=== PATIENT | female | born 1950 | race Caucasian/White ===

== ENCOUNTER 2021-10-26 09:54 | Emergency (ER) | payer MEDICARE ==
[2021-10-26 10:00] VITALS: RESP 18; TEMP 97.9
[2021-10-26] MEDS ORDERED: SODIUM CHLORIDE 0.9% 500 ML 500 ML IV ONE ×2 (10:19→11:37)
[2021-10-26] MEDS ORDERED: HYDROmorphone 0.5 MG/0.5 ML SYRINGE IVP STA ×2 (10:19→11:37)
--- NOTE | 2021-10-26 10:25 | XR ---
EXAMINATION TYPE: XR chest 1V portable DATE OF EXAM: 10/26/2021 COMPARISON: Chest x-ray September 10, 2019 and older studies. Chest CT 2016. HISTORY: Chest pain and shortness of breath TECHNIQUE: Single frontal view of the chest is obtained. FINDINGS: Background chronic emphysematous and pulmonary fibrotic change with right-sided volume loss and upper lung scarring is redemonstrated. There is no suspicious new focal air space opacity, pleur al effusion, or pneumothorax seen. The cardiac silhouette size remains within normal limits. Left sh oulder level shows calcified density probable intra-articular loose body. IMPRESSION: Chronic changes without acute pulmonary process. No significant change from prior studie s.
--- NOTE | 2021-10-26 10:36 | ED ---
General Adult HPI - General Chief complaint: Chest Pain Stated complaint: Chest pain, SOB Time Seen by Provider: 10/26/21 10:03 Source: patient, RN notes reviewed, old records reviewed Mode of arrival: ambulatory Limitations: no limitations - History of Present Illness Initial comments: 71-year-old female presenting for left-sided chest pain and shortness of breath. Pain is sharp in nature, worse with deep inspiration. This is left-sided and posterior chest. No central chest pain. No vomiting. No fever. No cough. No lower extremity pain or swelling. No history of DVT or PE. She has a history of COPD. - Related Data Home Medications Medication Instructions Recorded Confirmed Acetaminophen Tab [Tylenol] 1,000 mg PO Q6H PRN 08/28/16 10/26/21 Omeprazole 20 mg PO DAILY 08/28/16 10/26/21 Albuterol Nebulized [Ventolin 2.5 mg INHALATION RT-QID PRN 10/26/21 10/26/21 Nebulized] Levothyroxine Sodium [Synthroid] 88 mcg PO DAILY 10/26/21 10/26/21 Umeclidinium Brm/Vilanterol Tr 1 puff INHALATION RT-DAILY 10/26/21 10/26/21 [Anoro Ellipta 62.5-25 Mcg INH] guaiFENesin [Mucinex] 600 mg PO DAILY PRN 10/26/21 10/26/21 Allergies Allergy/AdvReac Type Severity Reaction Status Date / Time aspirin Allergy Dyspnea Verified 10/26/21 10:47 Sulfa (Sulfonamide Allergy Dyspnea Verified 10/26/21 10:47 Antibiotics) codeine AdvReac Unknown Verified 10/26/21 10:47 hydrocodone [From Vicodin] AdvReac Nausea & Verified 10/26/21 10:47 Vomiting Review of Systems ROS Statement: Those systems with pertinent positive or pertinent negative responses have been documented in the HPI. ROS Other: All systems not noted in ROS Statement are negative. 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 and was tx with meds for 4 months, fusch's dz"needs corneal transplant", uti's, home 02-2 liters n/c History of Any Multi-Drug Resistant Organisms: None Reported Past Surgical History: Breast Surgery, Section, Cholecystectomy, Orthopedic Surgery Additional Past Surgical History / Comment(s): rt lower lobectomy 2000, marah knee arthroscopies, x2 c-sections, colonoscopy/polypectomy(benign), lt breast bx-neg Past Anesthesia/Blood Transfusion Reactions: No Reported Reaction Past Psychological History: No Psychological Hx Reported Smoking Status: Former smoker Past Alcohol Use History: None Reported Past Drug Use History: None Reported - Past Family History Mother Family Medical History: COPD Father Family Medical History: Diabetes Mellitus, Eye Disorder Additional Family Medical History / Comment(s): glaucoma General Exam Limitations: no limitations General appearance: alert, in no apparent distress Head exam: Present: atraumatic, normocephalic Eye exam: Present: normal appearance, PERRL ENT exam: Present: normal exam Neck exam: Present: normal inspection. Absent: tenderness, meningismus Respiratory exam: Present: wheezes. Absent: respiratory distress Cardiovascular Exam: Present: normal rhythm, tachycardia GI/Abdominal exam: Present: soft. Absent: distended, tenderness, guarding Extremities exam: Present: normal inspection, normal capillary refill. Absent: pedal edema Neurological exam: Present: alert, oriented X3, CN II-XII intact. Absent: motor sensory deficit Psychiatric exam: Present: normal affect, normal mood Skin exam: Present: warm, dry, intact. Absent: cyanosis, diaphoretic Course Vital Signs 10/26/21 10/26/21 10/26/21 09:56 11:34 12:09 Temperature 97.9 F Pulse Rate 123 H 94 86 Respiratory 18 18 Rate Blood Pressure 160/88 142/92 O2 Sat by Pulse 96 99 Oximetry EKG Findings - EKG Comments: EKG Findings:: EKG: Sinus tachycardia, right atrial enlargement, rate of 118 MO interval 156, QRS duration 54, QTC [address] segment elevation. Medical Decision Making - Medical Decision Making 71-year-old female with oxygen dependent COPD and emphysema presenting with left sided chest pain and dyspnea. She was tachycardic, there was concern for pulmonary embolism as well as pneumothorax. Initial chest x-rays negative for pneumothorax. CT is performed which shows no acute process, no central pulmonary embolism. She has a normal CBC, normal CMP, negative troponin. I did offer admission for continued evaluation treatment of her emphysema. Patient declines she states she has an appointment with her rn night tomorrow and would prefer discharged home. She is given strict return parameters. - Lab Data Result diagrams: 10/26/21 10:19 10/26/21 10:19 Lab Results 10/26/21 10/26/21 10/26/21 Range/Units 10:19 10:19 10:19 WBC 12.2 H (3.8-10.6) k/uL RBC 4.94 (3.80-5.40) m/uL Hgb 14.4 (11.4-16.0) gm/dL Hct 44.8 (34.0-46.0) % MCV 90.7 (80.0-100.0) fL MCH 29.2 (25.0-35.0) pg MCHC 32.2 (31.0-37.0) g/dL RDW 13.7 (11.5-15.5) % Plt Count 277 (150-450) k/uL MPV 8.0 Neutrophils % 78 % Lymphocytes % 13 % Monocytes % 7 % Eosinophils % 0 % Basophils % 1 % Neutrophils # 9.5 H (1.3-7.7) k/uL Lymphocytes # 1.6 (1.0-4.8) k/uL Monocytes # 0.9 (0-1.0) k/uL Eosinophils # 0.0 (0-0.7) k/uL Basophils # 0.1 (0-0.2) k/uL PT 10.3 (9.0-12.0) sec INR 1.0 (<1.2) APTT 25.7 (22.0-30.0) sec Sodium 137 (137-145) mmol/L Potassium 4.5 (3.5-5.1) mmol/L Chloride 101 (98-107) mmol/L Carbon Dioxide 26 (22-30) mmol/L Anion Gap 10 mmol/L BUN 14 (7-17) mg/dL Creatinine 0.87 (0.52-1.04) mg/dL Est GFR (CKD-EPI)AfAm 79 (>60 ml/min/1.73 sqM) Est GFR (CKD-EPI)NonAf 68 (>60 ml/min/1.73 sqM) Glucose 107 H (74-99) mg/dL Calcium 9.9 (8.4-10.2) mg/dL Magnesium 2.1 (1.6-2.3) mg/dL Total Bilirubin 1.1 (0.2-1.3) mg/dL AST 21 (14-36) U/L ALT 19 (4-34) U/L Alkaline Phosphatase 91 (38-126) U/L Troponin I (0.000-0.034) ng/mL Total Protein 8.2 (6.3-8.2) g/dL Albumin 4.5 (3.5-5.0) g/dL 10/26/21 Range/Units 10:19 WBC (3.8-10.6) k/uL RBC (3.80-5.40) m/uL Hgb (11.4-16.0) gm/dL Hct (34.0-46.0) % MCV (80.0-100.0) fL MCH (25.0-35.0) pg MCHC (31.0-37.0) g/dL RDW (11.5-15.5) % Plt Count (150-450) k/uL MPV Neutrophils % % Lymphocytes % % Monocytes % % Eosinophils % % Basophils % % Neutrophils # (1.3-7.7) k/uL Lymphocytes # (1.0-4.8) k/uL Monocytes # (0-1.0) k/uL Eosinophils # (0-0.7) k/uL Basophils # (0-0.2) k/uL PT (9.0-12.0) sec INR (<1.2) APTT (22.0-30.0) sec Sodium (137-145) mmol/L Potassium (3.5-5.1) mmol/L Chloride (98-107) mmol/L Carbon Dioxide (22-30) mmol/L Anion Gap mmol/L BUN (7-17) mg/dL Creatinine (0.52-1.04) mg/dL Est GFR (CKD-EPI)AfAm (>60 ml/min/1.73 sqM) Est GFR (CKD-EPI)NonAf (>60 ml/min/1.73 sqM) Glucose (74-99) mg/dL Calcium (8.4-10.2) mg/dL Magnesium (1.6-2.3) mg/dL Total Bilirubin (0.2-1.3) mg/dL AST (14-36) U/L ALT (4-34) U/L Alkaline Phosphatase (38-126) U/L Troponin I <0.012 (0.000-0.034) ng/mL Total Protein (6.3-8.2) g/dL Albumin (3.5-5.0) g/dL Disposition Clinical Impression: Atypical chest pain Disposition: HOME SELF-CARE Condition: Fair Instructions (If sedation given, give patient instructions): Chest Pain (ED) Is patient prescribed a controlled substance at d/c from ED?: No Referrals: Alexandra Krishnan DO [Primary Care Provider] - 1-2 days James Garcia DO [Doctor of Osteopathic Medicine] - 1-2 days Time of Disposition: 12:25
[2021-10-26 10:37] LABS: Basophils # (A) 0.1 k/uL (0-0.2); Basophils % (A) 1 %; Eosinophils % (A) 0 %; HCT 44.8 % (34.0-46.0); HGB 14.4 gm/dL (11.4-16.0); Lymphocytes # (A) 1.6 k/uL (1.0-4.8); Lymphocytes % (A) 13 %; MCH 29.2 pg (25.0-35.0); MCHC 32.2 g/dL (31.0-37.0); MCV 90.7 fL (80.0-100.0); Monocytes # (A) 0.9 k/uL (0-1.0); Monocytes % (A) 7 %; Neutrophils # (A) 9.5 k/uL (1.3-7.7); Neutrophils % (A) 78 %; Platelet Count 277 k/uL (150-450); RBC 4.94 m/uL (3.80-5.40); RDW 13.7 % (11.5-15.5); WBC 12.2 k/uL (3.8-10.6)
[2021-10-26 10:50] LABS: Albumin 4.5 g/dL (3.5-5.0); Calcium 9.9 mg/dL (8.4-10.2); Magnesium 2.1 mg/dL (1.6-2.3); Potassium 4.5 mmol/L (3.5-5.1); Total Bilirubin 1.1 mg/dL (0.2-1.3); Total Protein 8.2 g/dL (6.3-8.2)
[2021-10-26 11:01] LABS: Partial Thromboplastin Time 25.7 sec (22.0-30.0); Prothrombin Time 10.3 sec (9.0-12.0)
--- NOTE | 2021-10-26 11:26 | CT ---
EXAMINATION TYPE: CT angio chest DATE OF EXAM: 10/26/2021 COMPARISON: Prior chest CT August 31, 2016. HISTORY: Chest pain and difficulty breathing. History of right lobectomy. CT DLP: 391.8 mGycm. Automated Exposure Control for Dose Reduction was Utilized. CONTRAST: CTA scan of the thorax is performed with IV Contrast, patient injected with 57ml mL of Isovue 370, pu lmonary embolism protocol. MIP Images are created on CT scanner and reviewed. FINDINGS: LUNGS: Moderate to advanced underlying emphysematous change with moderate scattered parenchymal fibro sis greatest in the right upper lobe where there is focal scarring and volume loss along with areas o f chronic bronchiectasis and surgical change along with bulla and bleb formation. No suspicious new f ocal consolidation. No pleural effusion or pneumothorax seen bilaterally. MEDIASTINUM: There is suboptimal study with apical contrast in the aorta and pulmonary arteries. No t horacic aortic aneurysm or dissection is seen. There is a 4 vessel origin from the aortic arch which is normal variant. Some prominent but partially calcified left hilar and subcarinal lymph nodes are r edemonstrated. Prominent right hilar lymph node seen better on current study. No cardiomegaly or pe ricardial effusion is seen. OTHER: Cholecystectomy clips are present. Underlying scoliotic curvature is seen. IMPRESSION: Suboptimal study without acute pulmonary embolism. Moderate to advanced underlying emphys ematous change along with moderate scarring greatest in the right upper lung where there is prior edison gical change and volume loss redemonstrated. No acute pulmonary process is noted.
[2021-10-26 11:36] VITALS: BP 142/92
[2021-10-26] MEDS ORDERED: KETOROLAC 15 MG/ML 1 ML VIAL IVP STA (11:37)
[2021-10-26] MEDS ORDERED: ALBUTEROL NEBULIZED 2.5 MG/3 ML INHALATION STA (11:39)
[2021-10-26] MEDS ORDERED: methylPREDNISolone SOD SUCCI 125 MG/2 ML VIAL IV STA (11:39)
[2021-10-26] MEDS ORDERED: IPRATROPIUM-ALBUTEROL 3 ML NEB INHALATION STA (11:39)
[2021-10-26 12:29] VITALS: PULSE 89
== END 2021-10-26 13:36 | disposition home or self-care (01) ==
LOC: EC 09:54
DX: R07.89 Other chest pain (principal); J44.9 Chronic obstructive pulmonary disease, unspecified; K21.9 Gastro-esophageal reflux disease without esophagitis; E07.9 Disorder of thyroid, unspecified; Z88.2 Allergy status to sulfonamides; Z88.5 Allergy status to narcotic agent; Z87.440 Personal history of urinary (tract) infections; Z90.49 Acquired absence of other specified parts of digestive tract; Z87.891 Personal history of nicotine dependence
CPT/HCPCS: 99284; 96374; 96375; 96376; 36415; 94640; 93005; 80053; 83735; 84484; 85025; 85610; 85730; 71045; 71275; J2930; J1170; Q9967

== ENCOUNTER 2021-12-25 23:55 | Inpatient (IN) | payer MEDICARE ==
[2021-12-26] MEDS ORDERED: MORPHINE SULFATE 4 MG/ML SYRINGE IV STA (05:21)
--- NOTE | 2021-12-26 05:25 | ED ---
Fever HPI - General Chief Complaint: Fever Stated Complaint: Back Pain, Chills, Fever Time Seen by Provider: 12/26/21 05:21 Source: patient Mode of arrival: ambulatory Limitations: no limitations - History of Present Illness Initial Comments: Patient is 71-year-old woman with history of underlying COPD. She presents because she is concerned she is developing pneumonia. The patient states she started having chills and fever yesterday. She states she does have a cough but she has some underlying COPD and usually does cough. No sputum production. She has some left thoracic back pain. She states she has had the symptoms previously with pneumonia. MD Complaint: fever, other Onset/Timin -: days(s) Associated Symptoms: chills, cough, other Treatments Prior to Arrival: Acetaminophen - Related Data Home Medications Medication Instructions Recorded Confirmed Omeprazole 20 mg PO DAILY 08/28/16 12/26/21 Levothyroxine Sodium [Synthroid] 88 mcg PO DAILY 10/26/21 12/26/21 Umeclidinium Brm/Vilanterol Tr 1 puff INHALATION RT-DAILY 10/26/21 12/26/21 [Anoro Ellipta 62.5-25 Mcg INH] diphenhydrAMINE HCL [Benadryl] 25 mg PO HS 12/26/21 12/26/21 guaiFENesin [Mucinex] 1,200 mg PO DAILY 12/26/21 12/26/21 Previous Rx's Medication Instructions Recorded Azithromycin [Zithromax] 500 mg PO DAILY #4 tab 12/29/21 Cefdinir [Omnicef] 300 mg PO BID #8 cap 12/29/21 predniSONE [Deltasone] 40 mg PO DAILY 2 Days #4 tab 12/29/21 Allergies Allergy/AdvReac Type Severity Reaction Status Date / Time aspirin Allergy Dyspnea Verified 12/26/21 08:06 ibuprofen [From Motrin] Allergy Dyspnea Verified 12/26/21 08:05 Sulfa (Sulfonamide Allergy Dyspnea Verified 12/26/21 08:06 Antibiotics) codeine AdvReac Confusion Verified 12/26/21 08:05 hydrocodone [From Vicodin] AdvReac Confusion Verified 12/26/21 08:06 Review of Systems ROS Statement: Those systems with pertinent positive or pertinent negative responses have been documented in the HPI. ROS Other: All systems not noted in ROS Statement are negative. Constitutional: Reports: fever, chills Respiratory: Reports: as per HPI, cough, dyspnea, wheezes. Denies: hemoptysis Cardiovascular: Reports: as per HPI, chest pain ((Back). 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 and was tx with meds for 4 months, fusch's dz"needs corneal transplant", uti's, home 02-2 liters n/c History of Any Multi-Drug Resistant Organisms: None Reported Past Surgical History: Breast Surgery, Section, Cholecystectomy, Orthopedic Surgery Additional Past Surgical History / Comment(s): rt lower lobectomy 2000, marah knee arthroscopies, x2 c-sections, colonoscopy/polypectomy(benign), lt breast bx-neg Past Anesthesia/Blood Transfusion Reactions: No Reported Reaction Past Psychological History: No Psychological Hx Reported Smoking Status: Former smoker Past Alcohol Use History: None Reported Past Drug Use History: None Reported - Past Family History Mother Family Medical History: COPD Father Family Medical History: Diabetes Mellitus, Eye Disorder Additional Family Medical History / Comment(s): glaucoma General Exam Limitations: no limitations General appearance: alert, in no apparent distress Head exam: Present: atraumatic, normocephalic Eye exam: Present: normal appearance Respiratory exam: Present: wheezes, chest wall tenderness, decreased breath sounds. Absent: rales, rhonchi, stridor, accessory muscle use Cardiovascular Exam: Present: tachycardia, normal heart sounds. Absent: systolic murmur, diastolic murmur, rubs, gallop GI/Abdominal exam: Present: soft. Absent: distended, tenderness, guarding, rebound, rigid, mass Extremities exam: Present: normal inspection, normal capillary refill. Absent: pedal edema, calf tenderness Back exam: Present: normal inspection. Absent: CVA tenderness (R), CVA tenderness (L) Neurological exam: Present: alert Skin exam: Present: warm, dry, intact, normal color. Absent: rash Course Vital Signs 12/25/21 12/26/21 12/26/21 23:57 05:30 05:43 Temperature 97.8 F 100.6 F H Pulse Rate 131 H 124 H Pulse Rate [ Pulse Oximetery ] Respiratory 20 24 24 Rate Blood Pressure 127/78 128/76 Blood Pressure [Left Arm] O2 Sat by Pulse 94 L 95 Oximetry 12/26/21 12/26/21 12/26/21 07:55 10:30 11:56 Temperature 100.1 F H 98.6 F Pulse Rate 121 H 96 103 H Pulse Rate [ Pulse Oximetery ] Respiratory 18 18 18 Rate Blood Pressure 121/70 109/65 Blood Pressure [Left Arm] O2 Sat by Pulse 98 96 Oximetry 12/26/21 12/26/21 12/26/21 12:05 14:19 17:17 Temperature 98.8 F Pulse Rate 101 H 96 94 Pulse Rate [ Pulse Oximetery ] Respiratory 18 16 18 Rate Blood Pressure 125/74 Blood Pressure [Left Arm] O2 Sat by Pulse 98 Oximetry 12/26/21 12/26/21 12/26/21 17:24 18:43 19:29 Temperature Pulse Rate 93 115 H 106 H Pulse Rate [ Pulse Oximetery ] Respiratory 18 20 18 Rate Blood Pressure 127/70 131/79 Blood Pressure [Left Arm] O2 Sat by Pulse 97 96 Oximetry 12/26/21 12/26/21 12/26/21 20:00 20:10 20:18 Temperature 98.4 F Pulse Rate 98 109 H Pulse Rate [ 112 H Pulse Oximetery ] Respiratory 20 Rate Blood Pressure Blood Pressure 129/74 [Left Arm] O2 Sat by Pulse 95 Oximetry 12/26/21 12/26/21 20:19 20:25 Temperature Pulse Rate 109 H 112 H Pulse Rate [ Pulse Oximetery ] Respiratory Rate Blood Pressure Blood Pressure [Left Arm] O2 Sat by Pulse Oximetry Medical Decision Making - Lab Data Result diagrams: 12/29/21 06:05 12/29/21 06:05 Lab Results 12/26/21 12/26/21 12/26/21 Range/Units 05:04 05:04 05:04 WBC 28.6 H (3.8-10.6) k/uL RBC 4.86 (3.80-5.40) m/uL Hgb 14.4 (11.4-16.0) gm/dL Hct 44.1 (34.0-46.0) % MCV 90.7 (80.0-100.0) fL MCH 29.5 (25.0-35.0) pg MCHC 32.6 (31.0-37.0) g/dL RDW 13.9 (11.5-15.5) % Plt Count 291 (150-450) k/uL MPV 8.8 Neutrophils % 91 % Lymphocytes % 4 % Monocytes % 4 % Eosinophils % 0 % Basophils % 0 % Neutrophils # 26.0 H (1.3-7.7) k/uL Lymphocytes # 1.2 (1.0-4.8) k/uL Monocytes # 1.2 H (0-1.0) k/uL Eosinophils # 0.0 (0-0.7) k/uL Basophils # 0.1 (0-0.2) k/uL Manual Slide Review Performed RBC Morphology Normal D-Dimer (<0.60) mg/L FEU Sodium 137 (137-145) mmol/L Potassium 4.7 (3.5-5.1) mmol/L Chloride 100 (98-107) mmol/L Carbon Dioxide 27 (22-30) mmol/L Anion Gap 10 mmol/L BUN 19 H (7-17) mg/dL Creatinine 1.03 (0.52-1.04) mg/dL Est GFR (CKD-EPI)AfAm 64 (>60 ml/min/1.73 sqM) Est GFR (CKD-EPI)NonAf 56 (>60 ml/min/1.73 sqM) Glucose 119 H (74-99) mg/dL Lactic Ac Sepsis Rflx Plasma Lactic Acid Buster 2.4 H* (0.7-2.0) mmol/L Calcium 9.6 (8.4-10.2) mg/dL Total Bilirubin 1.1 (0.2-1.3) mg/dL AST 30 (14-36) U/L ALT 25 (4-34) U/L Alkaline Phosphatase 83 (38-126) U/L Troponin I (0.000-0.034) ng/mL Total Protein 7.8 (6.3-8.2) g/dL Albumin 4.3 (3.5-5.0) g/dL Urine Color Urine Appearance (Clear) Urine pH (5.0-8.0) Ur Specific Allen (1.001-1.035) Urine Protein (Negative) Urine Glucose (UA) (Negative) Urine Ketones (Negative) Urine Blood (Negative) Urine Nitrite (Negative) Urine Bilirubin (Negative) Urine Urobilinogen (<2.0) mg/dL Ur Leukocyte Esterase (Negative) Coronavirus (PCR) (Not Detectd) 12/26/21 12/26/21 12/26/21 Range/Units 05:22 05:25 05:48 WBC (3.8-10.6) k/uL RBC (3.80-5.40) m/uL Hgb (11.4-16.0) gm/dL Hct (34.0-46.0) % MCV (80.0-100.0) fL MCH (25.0-35.0) pg MCHC (31.0-37.0) g/dL RDW (11.5-15.5) % Plt Count (150-450) k/uL MPV Neutrophils % % Lymphocytes % % Monocytes % % Eosinophils % % Basophils % % Neutrophils # (1.3-7.7) k/uL Lymphocytes # (1.0-4.8) k/uL Monocytes # (0-1.0) k/uL Eosinophils # (0-0.7) k/uL Basophils # (0-0.2) k/uL Manual Slide Review RBC Morphology D-Dimer (<0.60) mg/L FEU Sodium (137-145) mmol/L Potassium (3.5-5.1) mmol/L Chloride (98-107) mmol/L Carbon Dioxide (22-30) mmol/L Anion Gap mmol/L BUN (7-17) mg/dL Creatinine (0.52-1.04) mg/dL Est GFR (CKD-EPI)AfAm (>60 ml/min/1.73 sqM) Est GFR (CKD-EPI)NonAf (>60 ml/min/1.73 sqM) Glucose (74-99) mg/dL Lactic Ac Sepsis Rflx Plasma Lactic Acid Buster (0.7-2.0) mmol/L Calcium (8.4-10.2) mg/dL Total Bilirubin (0.2-1.3) mg/dL AST (14-36) U/L ALT (4-34) U/L Alkaline Phosphatase (38-126) U/L Troponin I <0.012 (0.000-0.034) ng/mL Total Protein (6.3-8.2) g/dL Albumin (3.5-5.0) g/dL Urine Color Yellow Urine Appearance Clear (Clear) Urine pH 6.0 (5.0-8.0) Ur Specific Allen 1.021 (1.001-1.035) Urine Protein Trace H (Negative) Urine Glucose (UA) Negative (Negative) Urine Ketones Negative (Negative) Urine Blood Negative (Negative) Urine Nitrite Negative (Negative) Urine Bilirubin Negative (Negative) Urine Urobilinogen <2.0 (<2.0) mg/dL Ur Leukocyte Esterase Negative (Negative) Coronavirus (PCR) Not Detected (Not Detectd) 12/26/21 12/26/21 Range/Units 06:16 06:57 WBC (3.8-10.6) k/uL RBC (3.80-5.40) m/uL Hgb (11.4-16.0) gm/dL Hct (34.0-46.0) % MCV (80.0-100.0) fL MCH (25.0-35.0) pg MCHC (31.0-37.0) g/dL RDW (11.5-15.5) % Plt Count (150-450) k/uL MPV Neutrophils % % Lymphocytes % % Monocytes % % Eosinophils % % Basophils % % Neutrophils # (1.3-7.7) k/uL Lymphocytes # (1.0-4.8) k/uL Monocytes # (0-1.0) k/uL Eosinophils # (0-0.7) k/uL Basophils # (0-0.2) k/uL Manual Slide Review RBC Morphology D-Dimer 0.59 (<0.60) mg/L FEU Sodium (137-145) mmol/L Potassium (3.5-5.1) mmol/L Chloride (98-107) mmol/L Carbon Dioxide (22-30) mmol/L Anion Gap mmol/L BUN (7-17) mg/dL Creatinine (0.52-1.04) mg/dL Est GFR (CKD-EPI)AfAm (>60 ml/min/1.73 sqM) Est GFR (CKD-EPI)NonAf (>60 ml/min/1.73 sqM) Glucose (74-99) mg/dL Lactic Ac Sepsis Rflx Y Plasma Lactic Acid Buster (0.7-2.0) mmol/L Calcium (8.4-10.2) mg/dL Total Bilirubin (0.2-1.3) mg/dL AST (14-36) U/L ALT (4-34) U/L Alkaline Phosphatase (38-126) U/L Troponin I (0.000-0.034) ng/mL Total Protein (6.3-8.2) g/dL Albumin (3.5-5.0) g/dL Urine Color Urine Appearance (Clear) Urine pH (5.0-8.0) Ur Specific Allen (1.001-1.035) Urine Protein (Negative) Urine Glucose (UA) (Negative) Urine Ketones (Negative) Urine Blood (Negative) Urine Nitrite (Negative) Urine Bilirubin (Negative) Urine Urobilinogen (<2.0) mg/dL Ur Leukocyte Esterase (Negative) Coronavirus (PCR) (Not Detectd) Disposition Clinical Impression: COPD exacerbation, Pneumonia Disposition: ADMITTED IP TO THIS HOSP Condition: Good Is patient prescribed a controlled substance at d/c from ED?: No
[2021-12-26 06:09] LABS: Appearance,Urine Clear (Clear); Bilirubin,Urine Negative (Negative); Blood,Urine Negative (Negative); Color,Urine Yellow; Glucose,Urine (UA) Negative (Negative); Ketones,Urine Negative (Negative); Leukocyte Esterase,Urine Negative (Negative); Nitrite,Urine Negative (Negative); Protein,Urine Trace (Negative); Specific Gravity,Urine 1.021 (1.001-1.035); Urobilinogen,Urine <2.0 mg/dL (<2.0)
--- NOTE | 2021-12-26 06:11 | XR ---
EXAMINATION TYPE: XR chest 2V DATE OF EXAM: 12/26/2021 COMPARISON: Chest x-ray and CTA chest October 26, 2021 HISTORY: Fever and cough. TECHNIQUE: Frontal and lateral views of the chest are obtained. FINDINGS: Background advanced chronic emphysematous and pulmonary fibrotic change is redemonstrated. Right apical pleural thickening redemonstrated. New left infrahilar opacity on current study. Cardiac silhouette size stable and within normal limits. Right-sided volume loss with mediastinal shift rede monstrated. Osseous structures remain demineralized. IMPRESSION: Advanced chronic emphysematous and pulmonary fibrotic changes with new left infrahilar a cute infiltrate thought present.
[2021-12-26 06:12] LABS: Albumin 4.3 g/dL (3.5-5.0); Calcium 9.6 mg/dL (8.4-10.2); Potassium 4.7 mmol/L (3.5-5.1); Total Bilirubin 1.1 mg/dL (0.2-1.3); Total Protein 7.8 g/dL (6.3-8.2)
[2021-12-26 06:50] LABS: Basophils # (A) 0.1 k/uL (0-0.2); Basophils % (A) 0 %; Eosinophils % (A) 0 %; HCT 44.1 % (34.0-46.0); HGB 14.4 gm/dL (11.4-16.0); Lymphocytes # (A) 1.2 k/uL (1.0-4.8); Lymphocytes % (A) 4 %; MCH 29.5 pg (25.0-35.0); MCHC 32.6 g/dL (31.0-37.0); MCV 90.7 fL (80.0-100.0); Mean Platelet Volume 8.8; Monocytes # (A) 1.2 k/uL (0-1.0); Monocytes % (A) 4 %; Neutrophils % (A) 91 %; Platelet Count 291 k/uL (150-450); RBC 4.86 m/uL (3.80-5.40); RDW 13.9 % (11.5-15.5); WBC 28.6 k/uL (3.8-10.6)
[2021-12-26] MEDS ORDERED: ALBUTEROL NEBULIZED 2.5 MG/3 ML INHALATION PRN (07:17)
[2021-12-26] MEDS ORDERED: AZITHROMYCIN 500 MG in SODIUM CHLORIDE 0.9% 250 ML IVPB STA (07:17)
[2021-12-26] MEDS ORDERED: PNEUMONIA PROTOCOL UTILIZED 1 EACH MISC PO PRN (07:17)
[2021-12-26 07:46] LABS: RBC Morphology Normal
[2021-12-26] MEDS: ACETAMINOPHEN TAB 325 MG TAB PO PRN (08:02)
[2021-12-26] MEDS ORDERED: methylPREDNISolone SOD SUCCI 125 MG/2 ML VIAL IV STA (09:30)
[2021-12-26] MEDS ORDERED: IPRATROPIUM-ALBUTEROL 3 ML NEB INHALATION PRN (09:32)
--- NOTE | 2021-12-26 09:35 | P.HPIM ---
History of Present Illness H&P Date: 12/26/21 History of Presenting Illness: Patient is a very pleasant 71-year-old female with a past medical history of COPD home oxygen dependent on 3 L at all times, sarcoidosis, history of tuberculosis and right lower lobectomy in 2000, and hypothyroidism. She presented to the emergency department with a chief complaint of increased shortness of breath, fever of 103F, chills, and nonproductive cough. Patient states the symptoms began yesterday morning and have progressively worsened. Patient denies experiencing any headache, lightheadedness, dizziness, chest pain or palpitations, abdominal pain, nausea, vomiting, or diarrhea. Upon arrival to the emergency department patient was found to be tachycardic with heart rate of 131, tachypneic with respiratory rate of 24, and have a low-grade temp of 100.6F. Chest x-ray showing advanced chronic emphysematous and pulmonary fibr otic changes with new left infrahilar acute infiltrate. EKG showing sinus tachycardia at 123 bpm. Covid PCR was negative. Patient with significant leukocytosis with WBC count of 28.6 with left shift. CMP unremarkable. Review of systems: Pertinent positives and negatives as discussed in HPI, a complete review of systems was performed and all other systems are negative. Physical exam: Vital signs reviewed and stable. General: Nontoxic, no distress and appears stated age. Derm: Skin warm and dry, normal coloration for ethnicity. Head: Atraumatic, normocephalic and symmetric. Eyes: EOMs intact, no lid lag, and anicteric sclera Mouth: no lip lesions, mucus membranes moist Cardiovascular: regular rate and rhythm with normal S1S2, no murmur, positive posterior tibial pulses bilaterally, and cap refill < 2 seconds. Lungs: Respirations even, regular, and unlabored on 3 L O2 via nasal cannula. Lungs diminished with diffuse rhonchi throughout left upper and mid lung and diffuse expiratory wheezes bilaterally. Abdominal: soft, nontender to palpation, no guarding, no appreciable o rganomegaly Ext: ROM intact. No gross muscle atrophy, no edema, no contractures Neuro: Speech clear, face symmetrical and CN II-XII grossly intact with no noted focal neuro deficits Psych: Alert and oriented to person, place, time, and situation. Appropriate and pleasant affect. Assessment and Plan of Care: Sepsis secondary to community-acquired pneumonia. Acute respiratory failure with hypoxia Community-acquired pneumonia COPD with acute exacerbation secondary to community-acquired pneumonia Sarcoidosis with history of right lower lobectomy -Oxygenation to be administered and titrated as needed to maintain SPO2 equal to or greater than 92% -Telemetry monitoring. -Continuous Pulse-oximetry -Duonebs scheduled and as needed for SOB and/or wheezing -Incentive Spirometry, encourage use 10-15 times hourly while awake -Steroids: Solu-Medrol -Antibiotics: Azithromycin and Rocephin -Sputum culture -Consult to pulmonology Hypothyroidism -Continue daily medication regimen with levothyroxine. The patient is admitted with an anticipated greater than 2 midnight stay for evaluation of sepsis secondary to community-acquired pneumonia CODE STATUS: Full code DVT prophylaxis: Heparin Discussed with: Patient, patient's daughter, and RN Anticipated discharge date: Clinical course to determine Anticipated discharge place: Home A total of 45 minutes was spent on the care of this complex patient more than 50% of the time was spent in counseling and care coordination. Past Medical History Past Medical History: COPD, Fibromyalgia, GERD/Reflux, Pneumonia, Thyroid Disorder Additional Past Medical History / Comment(s): sarcoidosis tb in 2000 had rt lower lobectomy and was tx with meds for 4 months, fusch's dz"needs corneal transplant", uti's, home 02-2 liters n/c History of Any Multi-Drug Resistant Organisms: None Reported Past Surgical History: Breast Surgery, Section, Cholecystectomy, Orthopedic Surgery Additional Past Surgical History / Comment(s): rt lower lobectomy 2000, marah knee arthroscopies, x2 c-sections, colonoscopy/polypectomy(benign), lt breast bx-neg Past Anesthesia/Blood Transfusion Reactions: No Reported Reaction Past Psychological History: No Psychological Hx Reported Smoking Status: Former smoker Past Alcohol Use History: None Reported Past Drug Use History: None Reported - Past Family History Mother Family Medical History: COPD Father Family Medical History: Diabetes Mellitus, Eye Disorder Additional Family Medical History / Comment(s): glaucoma Medications and Allergies Home Medications Medication Instructions Recorded Confirmed Type Omeprazole 20 mg PO DAILY 08/28/16 12/26/21 History Levothyroxine Sodium [Synthroid] 88 mcg PO DAILY 10/26/21 12/26/21 History Umeclidinium Brm/Vilanterol Tr 1 puff INHALATION RT-DAILY 10/26/21 12/26/21 History [Anoro Ellipta 62.5-25 Mcg INH] diphenhydrAMINE HCL [Benadryl] 25 mg PO HS 12/26/21 12/26/21 History guaiFENesin [Mucinex] 1,200 mg PO DAILY 12/26/21 12/26/21 History Allergies Allergy/AdvReac Type Severity Reaction Status Date / Time aspirin Allergy Dyspnea Verified 12/26/21 08:06 ibuprofen [From Motrin] Allergy Dyspnea Verified 12/26/21 08:05 Sulfa (Sulfonamide Allergy Dyspnea Verified 12/26/21 08:06 Antibiotics) codeine AdvReac Confusion Verified 12/26/21 08:05 hydrocodone [From Vicodin] AdvReac Confusion Verified 12/26/21 08:06 Physical Exam Vitals: Vital Signs Temp Pulse Resp BP Pulse Ox 12/26/21 07:55 100.1 F H 121 H 18 121/70 98 12/26/21 05:43 24 12/26/21 05:30 100.6 F H 124 H 24 128/76 95 12/25/21 23:57 97.8 F 131 H 20 127/78 94 L Intake and Output 12/25/21 12/26/21 12/26/21 22:59 06:59 14:59 Other: Weight 86.183 kg Results CBC & Chem 7: 12/26/21 05:04 12/26/21 05:04 Labs: Abnormal Lab Results - Last 24 Hours (Table) 12/26/21 12/26/21 12/26/21 Range/Units 05:04 05:04 05:04 WBC 28.6 H (3.8-10.6) k/uL Neutrophils # 26.0 H (1.3-7.7) k/uL Monocytes # 1.2 H (0-1.0) k/uL BUN 19 H (7-17) mg/dL Glucose 119 H (74-99) mg/dL Plasma Lactic Acid Buster 2.4 H* (0.7-2.0) mmol/L Urine Protein (Negative) 12/26/21 Range/Units 05:48 WBC (3.8-10.6) k/uL Neutrophils # (1.3-7.7) k/uL Monocytes # (0-1.0) k/uL BUN (7-17) mg/dL Glucose (74-99) mg/dL Plasma Lactic Acid Buster (0.7-2.0) mmol/L Urine Protein Trace H (Negative)
--- NOTE | 2021-12-26 10:12 | P.CNPUL ---
History of Present Illness Consult date: 12/26/21 Requesting physician: Aminata Escalante Reason for consult: dyspnea, abnormal CXR/CT Chief complaint: Cough, congestion, fever History of present illness: This is a very pleasant 71-year-old female patient with a known history of fibromyalgia, hypothyroidism, former heavy smoker, chronic obstructive pulmonary disease with an FEV1 value 27% of predicted. She is oxygen dependent with home O2 at 3 L/m per nasal cannula. Chest has a history of sarcoidosis that has been inactive in stable. She also has a history of a tuberculosis right lower lobectomy and 4 months of treatment in 2000. She follows with Dr. Garcia in our office. She is maintained on an oral, nebulized treatments. She presented here to the emergency room early this morning with a 2 to three-day history of increasing shortness of breath, cough congestion and fevers. She also had some left thoracic back pain that was similar to her previous pneumonias and she was concerned. Chest x-ray does reveal advanced chronic emphysema and chronic fibrotic changes within the left infrahilar acute infiltrate. A previous CT angiogram in October 2021 ruled out pulmonary embolism. There is moderate to advanced underlying emphysematous changes along with moderate scarring greatest in the right upper lobe with his previous surgical change in volume loss. There is no acute pulmonary process noted at that time. This morning she had a T-max of 100.6. She is 95% O2 saturation room air. Blood pressure stable. She is quite tachycardic in the 120s. White count 28.6. Hemoglobin 14.4. D-dimer 0.59. Sodium 137. Potassium 4.7. BUN 19. Creatinine 1.03. Glucose 119. AST 30. ALT 25. Troponin negative 1. Urinalysis clear. Chronic virus by PCR not detected. She was initiated on ceftriaxone and azithromycin. Seen today in consultation in the emergency department. Currently sitting up in a stretcher. Awake and alert in no acute distress. She's a loose nonproductive cough currently. The cultures including sputum culture pending. She is continued on DuoNeb inhalations, IV Solu-Medrol, Perforomist inhalations, heparin for DVT prophylaxis. Review of Systems REVIEW OF SYSTEMS: CONSTITUTIONAL: Positive for fever, chills Denies any recent significant weight loss or weight gain. EYES: Denies change in vision. EARS, NOSE, MOUTH, THROAT: Denies headaches, denies sore throat. CARDIOVASCULAR: Denies chest pain, palpitations or syncopal episodes. RESPIRATORY: Positive for shortness of breath, cough, congestion no hemoptysis. GASTROINTESTINAL: Denies change in appetite, denies abdominal pain GENITOURINARY: Denies hematuria, denies infections. MUSKULOSKELETAL: Denies pain, denies swelling. INTEGUMENTARY: Denies rash, denies eczema. NEUROLOGICAL: Denies recent memory loss, no recent seizure activity. PSYCHIATRIC: Denies anxiety, denies depression. HEMATOLOGIC/LYMPHATIC: Denies anemia, denies enlarged lymph nodes. Past Medical History Past Medical History: COPD, Fibromyalgia, GERD/Reflux, Pneumonia, Thyroid Disorder Additional Past Medical History / Comment(s): sarcoidosis tb in 2000 had rt lower lobectomy and was tx with meds for 4 months, fusch's dz"needs corneal transplant", uti's, home 02-2 liters n/c History of Any Multi-Drug Resistant Organisms: None Reported Past Surgical History: Breast Surgery, Section, Cholecystectomy, Orthopedic Surgery Additional Past Surgical History / Comment(s): rt lower lobectomy 2000, marah knee arthroscopies, x2 c-sections, colonoscopy/polypectomy(benign), lt breast bx-neg Past Anesthesia/Blood Transfusion Reactions: No Reported Reaction Past Psychological History: No Psychological Hx Reported Smoking Status: Former smoker Past Alcohol Use History: None Reported Past Drug Use History: None Reported - Past Family History Mother Family Medical History: COPD Father Family Medical History: Diabetes Mellitus, Eye Disorder Additional Family Medical History / Comment(s): glaucoma Medications and Allergies Home Medications Medication Instructions Recorded Confirmed Type Omeprazole 20 mg PO DAILY 08/28/16 12/26/21 History Levothyroxine Sodium [Synthroid] 88 mcg PO DAILY 10/26/21 12/26/21 History Umeclidinium Brm/Vilanterol Tr 1 puff INHALATION RT-DAILY 10/26/21 12/26/21 History [Anoro Ellipta 62.5-25 Mcg INH] diphenhydrAMINE HCL [Benadryl] 25 mg PO HS 12/26/21 12/26/21 History guaiFENesin [Mucinex] 1,200 mg PO DAILY 12/26/21 12/26/21 History Allergies Allergy/AdvReac Type Severity Reaction Status Date / Time aspirin Allergy Dyspnea Verified 12/26/21 08:06 ibuprofen [From Motrin] Allergy Dyspnea Verified 12/26/21 08:05 Sulfa (Sulfonamide Allergy Dyspnea Verified 12/26/21 08:06 Antibiotics) codeine AdvReac Confusion Verified 12/26/21 08:05 hydrocodone [From Vicodin] AdvReac Confusion Verified 12/26/21 08:06 Physical Exam Vitals: Vital Signs Temp Pulse Resp BP Pulse Ox 12/26/21 07:55 100.1 F H 121 H 18 121/70 98 12/26/21 05:43 24 12/26/21 05:30 100.6 F H 124 H 24 128/76 95 12/25/21 23:57 97.8 F 131 H 20 127/78 94 L Intake and Output 12/25/21 12/26/21 12/26/21 22:59 06:59 14:59 Other: Weight 86.183 kg GENERAL EXAM: Alert, very pleasant 71-year-old female patient, on 3 L nasal alejandra harry, comfortable in no apparent distress. HEAD: Normocephalic. EYES: Normal reaction of pupils, equal size. NOSE: Clear with pink turbinates. THROAT: No erythema or exudates. NECK: No masses, no JVD. CHEST: No chest wall deformity. LUNGS: Equal air entry with few crackles in the left lung. Diminished throughout. CVS: S1 and S2 normal with no audible murmur, regular rhythm. ABDOMEN: No hepatosplenomegaly, normal bowel sounds, no guarding or rigidity. SPINE: No scoliosis or deformity SKIN: No rashes CENTRAL NERVOUS SYSTEM: No focal deficits, tone is normal in all 4 extremities. EXTREMITIES: There is no peripheral edema. No clubbing, no cyanosis. Peripheral pulses are intact. Results - Laboratory Findings CBC and BMP: 12/26/21 05:04 12/26/21 05:04 PT/INR, D-dimer D-Dimer 0.59 mg/L FEU (<0.60) 12/26/21 06:57 Abnormal lab findings: Abnormal Labs 12/26/21 12/26/21 12/26/21 05:04 05:04 05:04 WBC 28.6 H Neutrophils # 26.0 H Monocytes # 1.2 H BUN 19 H Glucose 119 H Plasma Lactic Acid Buster 2.4 H* Urine Protein 12/26/21 05:48 WBC Neutrophils # Monocytes # BUN Glucose Plasma Lactic Acid Buster Urine Protein Trace H - Diagnostic Findings Chest x-ray: image reviewed Assessment and Plan Assessment: 1 Acute community-acquired left hilar pneumonia. Initiated on ceftriaxone and azithromycin. 2 Acute exacerbation of severe GOLD stage IV oxygen dependent chronic obstructive pulmonary disease secondary to above. 3 History of heavy tobacco dependence 4 History of sarcoidosis, stable and inactive 5 History of tuberculosis in 2001 status post right lower lobectomy and treatment 4 months 6 Hypothyroidism 7 Gastroesophageal reflux disease 8 History of fibromyalgia Plan: The patient was seen and evaluated Chest x-ray and labs reviewed Continue ceftriaxone and azithromycin Continue bronchodilators, IV Solu-Medrol Titrate the FiO2 as tolerated Increase her activity as tolerated Encouraged use of the incentive spirometer We will continue to follow and make further recommendations based on her clinical I have personally seen and examined the patient, performed the documentation and the assessment and plan as written. Number of minutes spent on the visit: 20
[2021-12-26] MEDS: FORMOTEROL FUMARATE 20 MCG/2 ML NEBU INHALATION SCH ×2 (11:54→20:09)
[2021-12-26] MEDS: IPRATROPIUM-ALBUTEROL 3 ML NEB INHALATION SCH ×6 (11:54→20:10)
[2021-12-26] MEDS: HEPARIN SODIUM,PORCINE/PF 5,000 UNIT/0.5 ML SYRINGE SQ SCH ×2 (17:53→22:31)
[2021-12-26] MEDS: diphenhydrAMINE 25 MG CAP PO SCH (22:27)
[2021-12-27] MEDS: IPRATROPIUM-ALBUTEROL 3 ML NEB INHALATION SCH ×8 (08:56→23:23)
[2021-12-27] MEDS: FORMOTEROL FUMARATE 20 MCG/2 ML NEBU INHALATION SCH ×2 (08:57→19:25)
[2021-12-27 09:35] LABS: HCT 36.8 % (37.2-46.3); HGB 11.5 g/dL (12.0-15.0); MCHC 31.3 g/dL (32.0-37.0); MCV 89.5 fL (80.0-97.0); Mean Platelet Volume 11.4 fL (9.5-12.2); NRBC Per 100 WBC 0 /100 WBCS (0.0-0.0); Platelet Count 225 X 10*3/uL (140-440); RBC 4.11 X 10*6/uL (4.10-5.20); RDW 13.8 % (11.5-14.5)
[2021-12-27 09:46] LABS: African American GFR (CKD) 67.4 (60.0-200.0); Albumin 3.6 g/dL (3.8-4.9); Albumin/Globulin Ratio 1.44 (1.60-3.17); Anion Gap 11.2 mmol/L (10.00-18.00); BUN/Creat Ratio 24.95 Ratio (12.00-20.00); Blood Urea Nitrogen 24.7 mg/dL (9.0-27.0); Calcium 9.6 mg/dL (8.7-10.3); Carbon Dioxide 27.1 mmol/L (20.0-27.5); Globulin 2.5 g/dL (1.6-3.3); Magnesium 2.1 mg/dL (1.5-2.4); Non-African American GFR(CKD) 58.1 (60.0-200.0); Potassium 4.3 mmol/L (3.5-5.5); Total Bilirubin 0.2 mg/dL (0.30-1.20); Total Protein 6.1 g/dL (6.2-8.2)
[2021-12-27] MEDS: LEVOTHYROXINE 88 MCG TAB PO SCH (09:59)
[2021-12-27] MEDS: AZITHROMYCIN 500 MG TAB PO SCH (10:44)
[2021-12-27] MEDS: PANTOPRAZOLE 40 MG TABLET PO SCH (10:44)
[2021-12-27] MEDS: guaiFENesin 600 MG TABLET.ER PO SCH (10:45)
[2021-12-27] MEDS: methylPREDNISolone SOD SUCCI 40 MG/ML 1 ML VIAL IV SCH ×2 (10:55→21:14)
[2021-12-27] MEDS: HEPARIN SODIUM,PORCINE/PF 5,000 UNIT/0.5 ML SYRINGE SQ SCH ×3 (10:55→23:38)
--- NOTE | 2021-12-27 10:58 | P.PN ---
Subjective Progress Note Date: 12/27/21 Principal diagnosis: Dyspnea, cough, fever and congestion This is a very pleasant 71-year-old female patient with a known history of fibromyalgia, hypothyroidism, former heavy smoker, chronic obstructive pulmonary disease with an FEV1 value 27% of predicted. She is oxygen dependent with home O2 at 3 L/m per nasal cannula. Chest has a history of sarcoidosis that has been inactive in stable. She also has a history of a tuberculosis right lower lobectomy and 4 months of treatment in 2000. She follows with Dr. Garcia in our office. She is maintained on an oral, nebulized treatments. She presented here to the emergency room early this morning with a 2 to three-day history of increasing shortness of breath, cough congestion and fevers. She also had some left thoracic back pain that was similar to her previous pneumonias and she was concerned. Chest x-ray does reveal advanced chronic emphysema and chronic fibrotic changes within the left infrahilar acute infiltrate. A previous CT angiogram in October 2021 ruled out pulmonary embolism. There is moderate to advanced underlying emphysematous changes along with moderate scarring greatest in the right upper lobe with his previous surgical change in volume loss. There is no acute pulmonary process noted at that time. This morning she had a T-max of 100.6. She is 95% O2 saturation room air. Blood pressure stable. She is quite tachycardic in the 120s. White count 28.6. Hemoglobin 14.4. D-dimer 0.59. Sodium 137. Potassium 4.7. BUN 19. Creatinine 1.03. Glucose 119. AST 30. ALT 25. Troponin negative 1. Urinalysis clear. Chronic virus by PCR not detected. She was initiated on ceftriaxone and azithromycin. Seen today in consultation in the emergency department. Currently sitting up in a stretcher. Awake and alert in no acute distress. She's a loose nonproductive cough currently. The cultures including sputum culture pending. She is continued on DuoNeb inhalations, IV Solu-Medrol, Perforomist inhalations, heparin for DVT prophylaxis. On 12/27/2021 patient seen in follow-up on medical surgical floor. She is breathing easier today, she is sitting up in bed, on 3 L of oxygen pulse ox is 96%. She remains on azithromycin and Rocephin for empiric antibiotic coverage, resting comfortably, no complaints of chest discomfort, no worsening dyspnea. Admission chest x-ray showed advanced chronic emphysematous and pulmonary fibrotic changes with new left infrahilar acute infiltrate. Today's labs have been reviewed, white blood cell count is improving and is down to 21.5, hemoglob in is 11.5, electrolytes and renal profile are unremarkable. Urinalysis showed no evidence of infection, COVID-19 PCR was negative. Blood cultures have been negative. Lung sounds are diminished, no rhonchi or wheezing. The patient continues on nebulized bronchodilators, she is on Pulmicort, Perforomist, DuoNeb, IV Solu-Medrol 40 mg every 12 hours, she is on GI and DVT prophylaxis. Objective - Vital Signs Vital signs: Vital Signs Temp 98.6 F 12/27/21 08:31 Pulse 115 H 12/27/21 09:22 Resp 18 12/27/21 08:31 BP 128/78 12/27/21 08:31 Pulse Ox 93 L 12/27/21 08:31 Intake & Output 12/26/21 12/27/21 12/27/21 18:59 06:59 18:59 Intake Total 590 Balance 590 Weight 86.183 kg Intake: Oral 590 Other: # Voids 2 - Exam GENERAL EXAM: Alert, very pleasant, 71-year-old white female, on 3 L of oxygen and pulse ox of 96% comfortable in no apparent distress. HEAD: Normocephalic/atraumatic. EYES: Normal reaction of pupils, equal size. Conjunctiva pink, sclera white. NOSE: Clear with pink turbinates. THROAT: No erythema or exudates. NECK: No masses, no JVD, no thyroid enlargement, no adenopathy. CHEST: No chest wall deformity. Symmetrical expansion. LUNGS: Equal air entry with diminished breath sounds bilaterally, no wheezing, no rhonchi CVS: Regular rate and rhythm, normal S1 and S2, no gallops, no murmurs, no rubs ABDOMEN: Soft, nontender. No hepatosplenomegaly, normal bowel sounds, no guarding or rigidity. EXTREMITIES: No clubbing, no edema, no cyanosis, 2+ pulses and upper and lower extremities. MUSCULOSKELETAL: Muscle strength and tone normal. SPINE: No scoliosis or deformity SKIN: No rashes CENTRAL NERVOUS SYSTEM: Alert and oriented -3. No focal deficits, tone is normal in all 4 extremities. PSYCHIATRIC: Alert and oriented -3. Appropriate affect. Intact judgment and insight. - Labs CBC & Chem 7: 12/27/21 05:57 12/27/21 05:57 Labs: Abnormal Lab Results - Last 24 Hours (Table) 12/27/21 12/27/21 Range/Units 05:57 05:57 WBC 21.50 H (4.50-10.00) X 10*3/uL Hgb 11.5 L (12.0-15.0) g/dL Hct 36.8 L (37.2-46.3) % MCHC 31.3 L (32.0-37.0) g/dL Est GFR (CKD-EPI)NonAf 58.1 L (60.0-200.0) BUN/Creatinine Ratio 24.95 H (12.00-20.00) Ratio Glucose 126 H (70-110) mg/dL Total Bilirubin 0.20 L (0.30-1.20) mg/dL ALT 52 H (8-44) U/L Total Protein 6.1 L (6.2-8.2) g/dL Albumin 3.6 L (3.8-4.9) g/dL Albumin/Globulin Ratio 1.44 L (1.60-3.17) g/dL Microbiology - Last 24 Hours (Table) 12/26/21 05:48 Blood Culture - Preliminary Blood No Growth after 24 hours 12/26/21 05:04 Blood Culture - Preliminary Blood No Growth after 24 hours Assessment and Plan Plan: Assessment: #1. Acute community-acquired left hilar pneumonia, continues on Rocephin and azithromycin #2. Acute exacerbation of COPD #3. Severe stage IV COPD #4. History of sarcoidosis, stable and inactive #5. History of tuberculosis 2001 status post right lower lobectomy and treatment for 4 months #6. Hypothyroidism #7. GERD #8. History of fibromyalgia Plan: Continue current antibiotics Continue steroids, and nebulized bronchodilators Clinical patient is improving Follow-up chest x-ray tomorrow Increase activity as tolerated May consider for discharge home if patient continues to improve and chest x-ray findings are improved on tomorrow's chest x-ray I have personally seen and examined the patient, performed the documentation and the assessment and plan as written. Number of minutes spent on the visit: [10]
[2021-12-27] MEDS: ACETAMINOPHEN TAB 325 MG TAB PO PRN (12:37)
--- NOTE | 2021-12-27 14:59 | P.PN ---
Subjective Progress Note Date: 12/27/21 Hospital course: Patient is a very pleasant 71-year-old female with a past medical history of COPD home oxygen dependent on 3 L at all times, sarcoidosis, history of tuberculosis and right lower lobectomy in 2000, and hypothyroidism. She presented to the emergency department with a chief complaint of increased shortness of breath, fever of 103F, chills, and nonproductive cough. Patient states the symptoms began yesterday morning and have progressively worsened. Patient denies experiencing any headache, lightheadedness, dizziness, chest pain or palpitations, abdominal pain, nausea, vomiting, or diarrhea. Upon arrival to the emergency department patient was found to be tachycardic with heart rate of 131, tachypneic with respiratory rate of 24, and have a low-grade temp of 100.6F. Chest x-ray showing advanced chronic emphysematous and pulmonary fibrotic changes with new left infrahilar acute infiltrate. EKG showing sinus tachycardia at 123 bpm. Covid PCR was negative. Patient with significant leukocytosis with WBC count of 28.6 with left shift. CMP unremarkable. Troponin negative at less than 0.012 and d-dimer of 0.59. Patient started on antibiotics for treatment of community-acquired pneumonia and admitted under our services with consultation to pulmonary. Physical exam: Patient seen and fully evaluated at the bedside this morning. She remains tach ycardic with heart rate 100-110, currently afebrile with highest temp over the past 24 hours being 100.6F. Patient remains on 3 L O2 via nasal cannula with SpO2 of 93%. She does report feeling better this morning and reports less coughing and shortness of breath. She denies experiencing any headache, lightheadedness, dizziness, chest pain, or palpitations. She remains on azithromycin and Rocephin for treatment of community-acquired pneumonia and to continue with Solu-Medrol 40 mg every 12 hours.Morning labs reviewed revealing mild improvement of his leukocytosis down to 21.50. Vital signs reviewed and stable. General: Nontoxic, no distress and appears stated age. Derm: Skin warm and dry, normal coloration for ethnicity. Head: Atraumatic, normocephalic and symmetric. Eyes: EOMs intact, no lid lag, and anicteric sclera Mouth: no lip lesions, mucus membranes moist Cardiovascular: regular rate and rhythm with normal S1S2, no murmur, positive posterior tibial pulses bilaterally, and cap refill < 2 seconds. Lungs: Respirations even, regular, and unlabored on 3 L O2 via nasal cannula. Lungs diminished with diffuse rhonchi throughout left upper and mid lung and diffuse expiratory wheezes bilaterally. Abdominal: soft, nontender to palpation, no guarding, no appreciable organ omegaly Ext: ROM intact. No gross muscle atrophy, no edema, no contractures Neuro: Speech clear, face symmetrical and CN II-XII grossly intact with no noted focal neuro deficits Psych: Alert and oriented to person, place, time, and situation. Appropriate and pleasant affect. Assessment and Plan of Care: Sepsis secondary to community-acquired pneumonia. Acute respiratory failure with hypoxia Community-acquired pneumonia COPD with acute exacerbation secondary to community-acquired pneumonia Sarcoidosis with history of right lower lobectomy -Oxygenation to be administered and titrated as needed to maintain SPO2 equal to or greater than 92% -Telemetry monitoring. -Continuous Pulse-oximetry -Duonebs scheduled and as needed for SOB and/or wheezing -Incentive Spirometry, encourage use 10-15 times hourly while awake -Steroids: Solu-Medrol -Antibiotics: Azithromycin and Rocephin -Sputum culture -Pulmonary following, appreciate further recommendations. Hypothyroidism -Continue daily medication regimen with levothyroxine. CODE STATUS: Full code DVT prophylaxis: Heparin Discussed with: Patient, patient's daughter, and RN Anticipated discharge date: Clinical course to determine Anticipated discharge place: Home A total of 35 minutes was spent on the care of this complex patient more than 50% of the time was spent in counseling and care coordination. Objective - Vital Signs Vital signs: Vital Signs Temp 98.6 F 12/27/21 08:31 Pulse 115 H 12/27/21 09:22 Resp 18 12/27/21 08:31 BP 128/78 12/27/21 08:31 Pulse Ox 93 L 12/27/21 08:31 Intake & Output 12/26/21 12/27/21 12/27/21 18:59 06:59 18:59 Intake Total 590 Balance 590 Weight 86.183 kg Intake: Oral 590 Other: # Voids 2 - Labs CBC & Chem 7: 12/27/21 05:57 12/27/21 05:57 Labs: Abnormal Lab Results - Last 24 Hours (Table) 12/27/21 12/27/21 Range/Units 05:57 05:57 WBC 21.50 H (4.50-10.00) X 10*3/uL Hgb 11.5 L (12.0-15.0) g/dL Hct 36.8 L (37.2-46.3) % MCHC 31.3 L (32.0-37.0) g/dL Est GFR (CKD-EPI)NonAf 58.1 L (60.0-200.0) BUN/Creatinine Ratio 24.95 H (12.00-20.00) Ratio Glucose 126 H (70-110) mg/dL Total Bilirubin 0.20 L (0.30-1.20) mg/dL ALT 52 H (8-44) U/L Total Protein 6.1 L (6.2-8.2) g/dL Albumin 3.6 L (3.8-4.9) g/dL Albumin/Globulin Ratio 1.44 L (1.60-3.17) g/dL Microbiology - Last 24 Hours (Table) 12/26/21 05:48 Blood Culture - Preliminary Blood No Growth after 24 hours 12/26/21 05:04 Blood Culture - Preliminary Blood No Growth after 24 hours
[2021-12-27] MEDS: diphenhydrAMINE 25 MG CAP PO SCH (21:13)
[2021-12-28] MEDS: LEVOTHYROXINE 88 MCG TAB PO SCH (04:27)
[2021-12-28] MEDS: IPRATROPIUM-ALBUTEROL 3 ML NEB INHALATION SCH ×5 (07:15→19:50)
[2021-12-28] MEDS: FORMOTEROL FUMARATE 20 MCG/2 ML NEBU INHALATION SCH ×2 (07:15→19:50)
--- NOTE | 2021-12-28 08:14 | XR ---
EXAMINATION TYPE: XR chest 1V portable DATE OF EXAM: 12/28/2021 COMPARISON: X-ray dated 12/26/2021 HISTORY: Shortness of breath TECHNIQUE: Single frontal view of the chest is obtained. FINDINGS: Background of COPD, appreciated previously. Persistent patchy opacity in the left mid to lower lung z one, possibly representing pneumonia, slightly less prominent compared to the previous. Background of scattered thick fibrotic changes most evident in the right upper lung lobe. Bilateral basal linear pulmonary complexes and cystic changes, appreciated previously. No progressive lung consolidation. Blunting of the right CP recess, underlying small pleural effusion can't be excl uded. Persistent cardiomediastinal shift to the right side. Unchanged bony thoracic cage. IMPRESSION: Minimal interval changes as described above.
[2021-12-28] MEDS: methylPREDNISolone SOD SUCCI 40 MG/ML 1 ML VIAL IV SCH ×2 (09:30→20:29)
[2021-12-28] MEDS: guaiFENesin 600 MG TABLET.ER PO SCH (09:30)
[2021-12-28] MEDS: AZITHROMYCIN 500 MG TAB PO SCH ×2 (09:30→09:39)
[2021-12-28] MEDS: HEPARIN SODIUM,PORCINE/PF 5,000 UNIT/0.5 ML SYRINGE SQ SCH ×2 (09:30→15:45)
[2021-12-28] MEDS: PANTOPRAZOLE 40 MG TABLET PO SCH (09:30)
--- NOTE | 2021-12-28 11:23 | P.PN ---
Subjective Progress Note Date: 12/28/21 This is a very pleasant 71-year-old female patient with a known history of fibromyalgia, hypothyroidism, former heavy smoker, chronic obstructive pulmonary disease with an FEV1 value 27% of predicted. She is oxygen dependent with home O2 at 3 L/m per nasal cannula. Chest has a history of sarcoidosis that has been inactive in stable. She also has a history of a tuberculosis right lower lobectomy and 4 months of treatment in 2000. She follows with Dr. Garcia in our office. She is maintained on an oral, nebulized treatments. She presented here to the emergency room early this morning with a 2 to three-day history of increasing shortness of breath, cough congestion and fevers. She also had some left thoracic back pain that was similar to her previous pneumonias and she was concerned. Chest x-ray does reveal advanced chronic emphysema and chronic fibrotic changes within the left infrahilar acute infiltrate. A previous CT angiogram in October 2021 ruled out pulmonary embolism. There is moderate to advanced underlying emphysematous changes along with moderate scarring greatest in the right upper lobe with his previous surgical change in volume loss. There is no acute pulmonary process noted at that time. This morning she had a T-max of 100.6. She is 95% O2 saturation room air. Blood pressure stable. She is quite tachycardic in the 120s. White count 28.6. Hemoglobin 14.4. D-dimer 0.59. Sodium 137. Potassium 4.7. BUN 19. Creatinine 1.03. Glucose 119. AST 30. ALT 25. Troponin negative 1. Urinalysis clear. Chronic virus by PCR not detected. She was initiated on ceftriaxone and azithromycin. Seen today in consultation in the emergency department. Currently sitting up in a stretcher. Awake and alert in no acute distress. She's a loose nonproductive cough cu rrently. The cultures including sputum culture pending. She is continued on DuoNeb inhalations, IV Solu-Medrol, Perforomist inhalations, heparin for DVT prophylaxis. On 12/27/2021 patient seen in follow-up on medical surgical floor. She is breathing easier today, she is sitting up in bed, on 3 L of oxygen pulse ox is 96%. She remains on azithromycin and Rocephin for empiric antibiotic coverage, resting comfortably, no complaints of chest discomfort, no worsening dyspnea. Admission chest x-ray showed advanced chronic emphysematous and pulmonary fibrotic changes with new left infrahilar acute infiltrate. Today's labs have been reviewed, white blood cell count is improving and is down to 21.5, hemoglobin is 11.5, electrolytes and renal profile are unremarkable. Urinalysis showed no evidence of infection, COVID-19 PCR was negative. Blood cultures have been negative. Lung sounds are diminished, no rhonchi or wheezing. The patient continues on nebulized bronchodilators, she is on Pulmicort, Perforomist, DuoNeb, IV Solu-Medrol 40 mg every 12 hours, she is on GI and DVT prophylaxis. The patient is seen today 12/28/2021 in follow-up on the regular medical floor. She is up ambulating in her room. Awake and alert in no acute distress. She still has some dyspnea on exertion. She is maintaining O2 saturations in the 90s on 3 L/m per nasal cannula. She does have home oxygen. Chest x-ray showing mild improvement in the persistent patchy opacities in the left mid and lower lung field. Cultures revealed no growth. No new labs today. She is continued on DuoNeb inhalations, Pulmicort and Perforomist inhalations, IV Solu-Medrol. Antibiotics in the form of ceftriaxone and azithromycin. Objective - Vital Signs Vital signs: Vital Signs Temp 98 F 12/28/21 10:16 Pulse 100 12/28/21 11:05 Resp 19 12/28/21 10:16 BP 145/82 12/28/21 10:16 Pulse Ox 96 12/28/21 10:16 Intake & Output 12/27/21 12/28/21 12/28/21 18:59 06:59 18:59 Intake Total 360 100 Balance 360 100 Intake: Intake, IV Titration 100 Amount cefTRIAXone 2 gm In 100 Sodium Chloride 0.9% 50 ml @ 100 mls/hr IVPB Q24HR [facility] Rx#:[id number] Oral 360 Other: Voiding Method Toilet # Voids 4 4 - Exam GENERAL EXAM: Alert, very pleasant, 71-year-old female, on 3 L of oxygen and pulse ox of 96% comfortable in no apparent distress. HEAD: Normocephalic/atraumatic. EYES: Normal reaction of pupils, equal size. Conjunctiva pink, sclera white. NOSE: Clear with pink turbinates. THROAT: No erythema or exudates. NECK: No masses, no JVD, no thyroid enlargement, no adenopathy. CHEST: No chest wall deformity. Symmetrical expansion. LUNGS: Equal air entry with faint end expiratory wheeze, diminished CVS: Regular rate and rhythm, normal S1 and S2, no gallops, no murmurs, no rubs ABDOMEN: Soft, nontender. No hepatosplenomegaly, normal bowel sounds, no guarding or rigidity. EXTREMITIES: No clubbing, no edema, no cyanosis, 2+ pulses and upper and lower extremities. MUSCULOSKELETAL: Muscle strength and tone normal. SPINE: No scoliosis or deformity SKIN: No rashes CENTRAL NERVOUS SYSTEM: No focal deficits, tone is normal in all 4 extremities. PSYCHIATRIC: Alert and oriented -3. Appropriate affect. Intact judgment and insight. - Labs CBC & Chem 7: 12/27/21 05:57 12/27/21 05:57 Labs: Microbiology - Last 24 Hours (Table) 12/26/21 05:48 Blood Culture - Preliminary Blood No Growth after 48 hours 12/26/21 05:04 Blood Culture - Preliminary Blood No Growth after 48 hours Assessment and Plan Assessment: 1 Acute community-acquired left hilar pneumonia. Initiated on ceftriaxone and azithromycin. 2 Acute exacerbation of severe GOLD stage IV oxygen dependent chronic obstructive pulmonary disease secondary to above. 3 History of heavy tobacco dependence 4 History of sarcoidosis, stable and inactive 5 History of tuberculosis in 2000 status post right lower lobectomy and tr eatment 4 months 6 Hypothyroidism 7 Gastroesophageal reflux disease 8 History of fibromyalgia Plan: The patient was seen and evaluated Chest x-ray reviewed Continue ceftriaxone and azithromycin Continue bronchodilators, IV Solu-Medrol Titrate the FiO2 as tolerated The patient does have home oxygen Increase her activity as tolerated Encouraged use of the incentive spirometer Home either later today or in the a.m. I have personally seen and examined the patient, performed the documentation and the assessment and plan as written. Number of minutes spent on the visit: 10
[2021-12-28 15:39] VITALS: RESP 20
--- NOTE | 2021-12-28 15:59 | P.PN ---
Subjective Progress Note Date: 12/28/21 Hospital course: Patient is a very pleasant 71-year-old female with a past medical history of COPD home oxygen dependent on 3 L at all times, sarcoidosis, history of tuberculosis and right lower lobectomy in 2000, and hypothyroidism. She presented to the emergency department with a chief complaint of increased shortness of breath, fever of 103F, chills, and nonproductive cough. Patient states the symptoms began yesterday morning and have progressively worsened. Patient denies experiencing any headache, lightheadedness, dizziness, chest pain or palpitations, abdominal pain, nausea, vomiting, or diarrhea. Upon arrival to the emergency department patient was found to be tachycardic with heart rate of 131, tachypneic with respiratory rate of 24, and have a low-grade temp of 100.6F. Chest x-ray showing advanced chronic emphysematous and pulmonary fibrotic changes with new left infrahilar acute infiltrate. EKG showing sinus tachycardia at 123 bpm. Covid PCR was negative. Patient with significant leukocytosis with WBC count of 28.6 with left shift. CMP unremarkable. Troponin negative at less than 0.012 and d-dimer of 0.59. Patient started on antibiotics for treatment of community-acquired pneumonia and admitted under our services with consultation to pulmonary. Physical exam: Patient seen and fully evaluated at the bedside this morning. She reports feel ing better, but does remain short of breath and tachycardic with heart rate 100- 110, she has remained afebrile for greater than 24 hours and does remain on home oxygen dose of 3 L O2 via nasal cannula with SpO2 of 94% at rest, with needs increasing with exertion. She denies experiencing any headache, lightheadedness, dizziness, chest pain, or palpitations. She remains on azithromycin and Rocephin for treatment of community-acquired pneumonia and to continue with Solu-Medrol 40 mg every 12 hours. Encourage use of incentive spirometry 10-15 times hourly while awake. Vital signs reviewed and stable. General: Nontoxic, no distress and appears stated age. Derm: Skin warm and dry, normal coloration for ethnicity. Head: Atraumatic, normocephalic and symmetric. Eyes: EOMs intact, no lid lag, and anicteric sclera Mouth: no lip lesions, mucus membranes moist Cardiovascular: regular rate and rhythm with normal S1S2, no murmur, positive posterior tibial pulses bilaterally, and cap refill < 2 seconds. Lungs: Respirations even, regular, and unlabored on 3 L O2 via nasal cannula. Lungs diminished with diffuse rhonchi throughout left upper and mid lung and diffuse expiratory wheezes bilaterally. Abdominal: soft, nontender to palpation, no guarding, no appreciable organomegaly Ext: ROM intact. No gross muscle atrophy, no edema, no contractures Neuro: Speech clear, face symmetrical and CN II-XII grossly intact with no noted focal neuro deficits Psych: Alert and oriented to person, place, time, and situation. Appropriate and pleasant affect. Assessment and Plan of Care: Sepsis secondary to community-acquired pneumonia. Acute respiratory failure with hypoxia Community-acquired pneumonia COPD with acute exacerbation secondary to community-acquired pneumonia Sarcoidosis with history of right lower lobectomy -Oxygenation to be administered and titrated as needed to maintain SPO2 equal to or greater than 92% -Telemetry monitoring. -Continuous Pulse-oximetry -Duonebs scheduled and as needed for SOB and/or wheezing -Incentive Spirometry, encourage use 10-15 times hourly while awake -Steroids: Solu-Medrol -Antibiotics: Azithromycin and Rocephin -Sputum culture -Pulmonary following, appreciate further recommendations. Hypothyroidism -Continue daily medication regimen with levothyroxine. CODE STATUS: Full code DVT prophylaxis: Heparin Discussed with: Patient, patient's daughter, and RN Anticipated discharge date: Likely tomorrow morning Anticipated discharge place: Home A total of 35 minutes was spent on the care of this complex patient more than 50% of the time was spent in counseling and care coordination. Objective - Vital Signs Vital signs: Vital Signs Temp 97.1 F L 12/28/21 11:52 Pulse 107 H 12/28/21 11:52 Resp 18 12/28/21 11:52 BP 149/79 12/28/21 11:52 Pulse Ox 94 L 12/28/21 11:52 Intake & Output 12/27/21 12/28/21 12/28/21 18:59 06:59 18:59 Intake Total 360 100 Balance 360 100 Intake: Intake, IV Titration 100 Amount cefTRIAXone 2 gm In 100 Sodium Chloride 0.9% 50 ml @ 100 mls/hr IVPB Q24HR [facility] Rx#:[id number] Oral 360 Other: Voiding Method Toilet # Voids 4 4 - Labs CBC & Chem 7: 12/27/21 05:57 12/27/21 05:57 Labs: Microbiology - Last 24 Hours (Table) 12/26/21 05:48 Blood Culture - Preliminary Blood No Growth after 48 hours 12/26/21 05:04 Blood Culture - Preliminary Blood No Growth after 48 hours
[2021-12-28] MEDS: diphenhydrAMINE 25 MG CAP PO SCH (20:28)
[2021-12-29] MEDS: HEPARIN SODIUM,PORCINE/PF 5,000 UNIT/0.5 ML SYRINGE SQ SCH ×2 (00:54→08:10)
[2021-12-29] MEDS: LEVOTHYROXINE 88 MCG TAB PO SCH (04:51)
[2021-12-29] MEDS: IPRATROPIUM-ALBUTEROL 3 ML NEB INHALATION SCH ×2 (07:30→11:08)
[2021-12-29] MEDS: FORMOTEROL FUMARATE 20 MCG/2 ML NEBU INHALATION SCH (07:31)
[2021-12-29] MEDS: guaiFENesin 600 MG TABLET.ER PO SCH (08:10)
[2021-12-29] MEDS: AZITHROMYCIN 500 MG TAB PO SCH (08:10)
[2021-12-29] MEDS: PANTOPRAZOLE 40 MG TABLET PO SCH (08:10)
[2021-12-29] MEDS: methylPREDNISolone SOD SUCCI 40 MG/ML 1 ML VIAL IV SCH (08:10)
[2021-12-29 08:57] LABS: HCT 38.3 % (37.2-46.3); HGB 11.8 g/dL (12.0-15.0); MCH 27.8 pg (27.0-32.0); MCHC 30.8 g/dL (32.0-37.0); MCV 90.3 fL (80.0-97.0); Mean Platelet Volume 10.7 fL (9.5-12.2); NRBC Per 100 WBC 0 /100 WBCS (0.0-0.0); Platelet Count 295 X 10*3/uL (140-440); RBC 4.24 X 10*6/uL (4.10-5.20); RDW 14.5 % (11.5-14.5); WBC 7.89 X 10*3/uL (4.50-10.00)
[2021-12-29 09:32] LABS: ALT 31 U/L (8-44); AST 9 U/L (13-35); African American GFR (CKD) 75.6 (60.0-200.0); Albumin 3.8 g/dL (3.8-4.9); Albumin/Globulin Ratio 1.46 (1.60-3.17); Alkaline Phosphatase 69 U/L (41-126); BUN/Creat Ratio 30.89 Ratio (12.00-20.00); Blood Urea Nitrogen 27.8 mg/dL (9.0-27.0); Calcium 9.5 mg/dL (8.7-10.3); Carbon Dioxide 26.4 mmol/L (20.0-27.5); Chloride 101 mmol/L (96-109); Globulin 2.6 g/dL (1.6-3.3); Glucose 117 mg/dL (70-110); Non-African American GFR(CKD) 65.2 (60.0-200.0); Potassium 4.7 mmol/L (3.5-5.5); Sodium 137 mmol/L (135-145); Total Bilirubin <0.15 mg/dL (0.30-1.20); Total Protein 6.4 g/dL (6.2-8.2)
--- NOTE | 2021-12-29 10:03 | P.PN ---
Subjective Progress Note Date: 12/29/21 This is a very pleasant 71-year-old female patient with a known history of fibromyalgia, hypothyroidism, former heavy smoker, chronic obstructive pulmonary disease with an FEV1 value 27% of predicted. She is oxygen dependent with home O2 at 3 L/m per nasal cannula. Chest has a history of sarcoidosis that has been inactive in stable. She also has a history of a tuberculosis right lower lobectomy and 4 months of treatment in 2000. She follows with Dr. Garcia in our office. She is maintained on an oral, nebulized treatments. She presented here to the emergency room early this morning with a 2 to three-day history of increasing shortness of breath, cough congestion and fevers. She also had some left thoracic back pain that was similar to her previous pneumonias and she was concerned. Chest x-ray does reveal advanced chronic emphysema and chronic fibrotic changes within the left infrahilar acute infiltrate. A previous CT angiogram in October 2021 ruled out pulmonary embolism. There is moderate to advanced underlying emphysematous changes along with moderate scarring greatest in the right upper lobe with his previous surgical change in volume loss. There is no acute pulmonary process noted at that time. This morning she had a T-max of 100.6. She is 95% O2 saturation room air. Blood pressure stable. She is quite tachycardic in the 120s. White count 28.6. Hemoglobin 14.4. D-dimer 0.59. Sodium 137. Potassium 4.7. BUN 19. Creatinine 1.03. Glucose 119. AST 30. ALT 25. Troponin negative 1. Urinalysis clear. Chronic virus by PCR not detected. She was initiated on ceftriaxone and azithromycin. Seen today in consultation in the emergency department. Currently sitting up in a stretcher. Awake and alert in no acute distress. She's a loose nonproductive cough cu rrently. The cultures including sputum culture pending. She is continued on DuoNeb inhalations, IV Solu-Medrol, Perforomist inhalations, heparin for DVT prophylaxis. On 12/27/2021 patient seen in follow-up on medical surgical floor. She is breathing easier today, she is sitting up in bed, on 3 L of oxygen pulse ox is 96%. She remains on azithromycin and Rocephin for empiric antibiotic coverage, resting comfortably, no complaints of chest discomfort, no worsening dyspnea. Admission chest x-ray showed advanced chronic emphysematous and pulmonary fibrotic changes with new left infrahilar acute infiltrate. Today's labs have been reviewed, white blood cell count is improving and is down to 21.5, hemoglobin is 11.5, electrolytes and renal profile are unremarkable. Urinalysis showed no evidence of infection, COVID-19 PCR was negative. Blood cultures have been negative. Lung sounds are diminished, no rhonchi or wheezing. The patient continues on nebulized bronchodilators, she is on Pulmicort, Perforomist, DuoNeb, IV Solu-Medrol 40 mg every 12 hours, she is on GI and DVT prophylaxis. The patient is seen today 12/28/2021 in follow-up on the regular medical floor. She is up ambulating in her room. Awake and alert in no acute distress. She still has some dyspnea on exertion. She is maintaining O2 saturations in the 90s on 3 L/m per nasal cannula. She does have home oxygen. Chest x-ray showing mild improvement in the persistent patchy opacities in the left mid and lower lung field. Cultures revealed no growth. No new labs today. She is continued on DuoNeb inhalations, Pulmicort and Perforomist inhalations, IV Solu-Medrol. Antibiotics in the form of ceftriaxone and azithromycin. The patient is seen today 12/29/2021 in follow-up on the regular medical floor. She is sitting up in bed. Awake and alert in no acute distress. States she is feeling nearly back to her baseline. She is anxious to go home. She is maintaining good O2 saturations in the low 90s on 3 L/m per nasal cannula. She's been afebrile. Blood cultures revealed no growth. White count 7.8. Hemoglobin 11.8. Sodium 137. Potassium 4.7. BUN 28. Creatinine 0.9. Glucose 117. AST 9. ALT 31. She is continued on DuoNeb inhalations, Pulmicort inhalations, IV Solu-Medrol. Antibiotics in the form of Omnicef and azithromycin. Objective - Vital Signs Vital signs: Vital Signs Temp 98.0 F 12/29/21 08:29 Pulse 92 12/29/21 08:29 Resp 20 12/29/21 08:29 BP 160/90 12/29/21 08:29 Pulse Ox 92 L 12/29/21 08:29 Intake & Output 12/28/21 12/29/21 12/29/21 18:59 06:59 18:59 Intake Total 590 Balance 590 Intake: Oral 590 Other: Voiding Method Toilet Toilet Toilet # Voids 2 2 - Exam GENERAL EXAM: Alert, very pleasant, 71-year-old female, on 3 L of oxygen and pulse ox of 92% comfortable in no apparent distress. HEAD: Normocephalic/atraumatic. EYES: Normal reaction of pupils, equal size. Conjunctiva pink, sclera white. NOSE: Clear with pink turbinates. THROAT: No erythema or exudates. NECK: No masses, no JVD, no thyroid enlargement, no adenopathy. CHEST: No chest wall deformity. Symmetrical expansion. LUNGS: Equal air entry with faint end expiratory wheeze, diminished CVS: Regular rate and rhythm, normal S1 and S2, no gallops, no murmurs, no rubs ABDOMEN: Soft, nontender. No hepatosplenomegaly, normal bowel sounds, no guarding or rigidity. EXTREMITIES: No clubbing, no edema, no cyanosis, 2+ pulses and upper and lower extremities. MUSCULOSKELETAL: Muscle strength and tone normal. SPINE: No scoliosis or deformity SKIN: No rashes CENTRAL NERVOUS SYSTEM: No focal deficits, tone is normal in all 4 extremities. PSYCHIATRIC: Alert and oriented -3. Appropriate affect. Intact judgment and insight. - Labs CBC & Chem 7: 12/29/21 06:05 12/29/21 06:05 Labs: Abnormal Lab Results - Last 24 Hours (Table) 12/29/21 12/29/21 Range/Units 06:05 06:05 Hgb 11.8 L (12.0-15.0) g/dL MCHC 30.8 L (32.0-37.0) g/dL Anion Gap 9.60 L (10.00-18.00) mmol/L BUN 27.8 H (9.0-27.0) mg/dL BUN/Creatinine Ratio 30.89 H (12.00-20.00) Ratio Glucose 117 H (70-110) mg/dL Total Bilirubin <0.15 L (0.30-1.20) mg/dL AST 9 L (13-35) U/L Albumin/Globulin Ratio 1.46 L (1.60-3.17) g/dL Microbiology - Last 24 Hours (Table) 12/26/21 05:48 Blood Culture - Preliminary Blood No Growth after 72 hours 12/26/21 05:04 Blood Culture - Preliminary Blood No Growth after 72 hours Assessment and Plan Assessment: 1 Acute community-acquired left hilar pneumonia. Currently on Omnicef and azithromycin 2 Acute exacerbation of severe GOLD stage IV oxygen dependent chronic obstructive pulmonary disease secondary to above 3 History of heavy tobacco dependence 4 History of sarcoidosis, stable and inactive 5 History of tuberculosis in 2000 status post right lower lobectomy and treatment 4 months 6 Hypothyroidism 7 Gastroesophageal reflux disease 8 History of fibromyalgia Plan: The patient was seen and evaluated Labs reviewed Cleared for discharge from the pulmonary standpoint Continue Omnicef and azithromycin 5 more days Continue her home pulmonary medications Complete a prednisone taper starting at 40 mg for 4 days The patient does have home oxygen Follow-up in our office in 1-2 weeks' I have personally seen and examined the patient, performed the documentation and the assessment and plan as written. Number of minutes spent on the visit: 10
[2021-12-29 13:00] VITALS: BP 166/97; PULSE 90; TEMP 98.4
--- NOTE | 2021-12-29 14:56 | P.DS ---
Providers Date of admission: 12/26/21 07:21 Expected date of discharge: 12/29/21 Attending physician: Aminata Escalante MD Consults: 12/26/21 07:17 Consult Physician Routine Consulting Provider: James Garcia Reason/Comments: Pneumonia. Your COPD patient. Do you want consulting provider notified?: Yes Primary care physician: Alexandra Krishnan [facility] Course: Patient is a very pleasant 71-year-old female with a past medical history of COPD home oxygen dependent on 3 L at all times, sarcoidosis, history of tuberculosis and right lower lobectomy in 2000, and hypothyroidism. She presented to the emergency department with a chief complaint of increased shortness of breath, fever of 103F, chills, and nonproductive cough. Upon arrival to the emergency department patient was found to be tachycardic with heart rate of 131, tachypneic with respiratory rate of 24, and have a low-grade temp of 100.6F. Chest x-ray showing advanced chronic emphysematous and pulmonary fibrotic changes with new left infrahilar acute infiltrate. EKG showing sinus tachycardia at 123 bpm. Covid PCR was negative. Patient with significant leukocytosis with WBC count of 28.6 with left shift. CMP unremarkable. Troponin negative at less than 0.012 and d-dimer of 0.59. Patient started on antibiotics for treatment of community-acquired pneumonia and admitted under our services with consultation to pulmonary. Sepsis secondary to community-acquired pneumonia. Acute respiratory failure with hypoxia Community-acquired pneumonia COPD with acute exacerbation secondary to community-acquired pneumonia Sarcoidosis with history of right lower lobectomy Patient treated for 3 days of IV antibiotics and transitioned to Cefdinir, azithromycin. Seen and cleared by pulmonary. Prescribed antibiotics for 4 additional days by mouth. She'll follow-up with pulmonary medicine. Hypothyroidism -Continue daily medication regimen with levothyroxine. CODE STATUS: Full code DVT prophylaxis: Heparin Anticipated discharge date: Likely tomorrow morning Anticipated discharge place: Home I spent 32 minutes coordinating this complex discharge Gen: awake, alert HEENT: normocephalic, atraumatic, good hearing acuity, moist mucous membranes Resp: good air exchange, breathing comfortably with no accessory muscle use CVS: good distal perfusion x 4, GI: soft, NTTP, ND : no SPT, no CVAT, vasquez catheter not present MSK: no pitting edema, no clubbing Neuro: non-focal, moving all extremities Psych: cooperative, euthymic mood Patient Condition at Discharge: Good Plan - Discharge Summary Discharge Rx Participant: No New Discharge Prescriptions: New Azithromycin [Zithromax] 500 mg PO DAILY #4 tab predniSONE [Deltasone] 40 mg PO DAILY 2 Days #4 tab Cefdinir [Omnicef] 300 mg PO BID #8 cap Continue Omeprazole 20 mg PO DAILY Levothyroxine Sodium [Synthroid] 88 mcg PO DAILY guaiFENesin [Mucinex] 1,200 mg PO DAILY diphenhydrAMINE HCL [Benadryl] 25 mg PO HS Umeclidinium Brm/Vilanterol Tr [Anoro Ellipta 62.5-25 Mcg INH] 1 puff INHALATION RT-DAILY Discharge Medication List Omeprazole 20 mg PO DAILY 08/28/16 [History] Levothyroxine Sodium [Synthroid] 88 mcg PO DAILY 10/26/21 [History] Umeclidinium Brm/Vilanterol Tr [Anoro Ellipta 62.5-25 Mcg INH] 1 puff INHALATION RT-DAILY 10/26/21 [History] diphenhydrAMINE HCL [Benadryl] 25 mg PO HS 12/26/21 [History] guaiFENesin [Mucinex] 1,200 mg PO DAILY 12/26/21 [History] Azithromycin [Zithromax] 500 mg PO DAILY #4 tab 12/29/21 [Rx] Cefdinir [Omnicef] 300 mg PO BID #8 cap 12/29/21 [Rx] predniSONE [Deltasone] 40 mg PO DAILY 2 Days #4 tab 12/29/21 [Rx] Follow up Appointment(s)/Referral(s): Shaniqua Mccrary MD [STAFF PHYSICIAN] - 1 Week Alexandra Krishnan DO [Primary Care Provider] - 1-2 days Discharge Disposition: HOME SELF-CARE
[2021-12-30] MEDS ORDERED: predniSONE 20 MG TAB PO SCH (09:00)
[2021-12-30] MEDS ORDERED: CEFDINIR 300 MG CAP PO SCH (09:00)
== END 2021-12-29 14:15 | disposition home or self-care (01) | DRG 871 ==
LOC: EC 23:55 → 5NMEDONC 12-26 07:21
PROVIDERS: ADMIT Internal Medicine; ATTEND Internal Medicine
DX: A41.9 Sepsis, unspecified organism (principal); J18.9 Pneumonia, unspecified organism; J96.01 Acute respiratory failure with hypoxia; J44.1 Chronic obstructive pulmonary disease with (acute) exacerbation; J44.0 Chronic obstructive pulmonary disease with (acute) lower respiratory infection; Z20.822 Contact with and (suspected) exposure to COVID-19; K21.9 Gastro-esophageal reflux disease without esophagitis; E03.9 Hypothyroidism, unspecified; M79.7 Fibromyalgia; D86.9 Sarcoidosis, unspecified; Z99.81 Dependence on supplemental oxygen; Z90.2 Acquired absence of lung [part of]; Z87.891 Personal history of nicotine dependence; Z86.11 Personal history of tuberculosis; Z79.890 Hormone replacement therapy; Z87.440 Personal history of urinary (tract) infections; Z90.49 Acquired absence of other specified parts of digestive tract; Z88.6 Allergy status to analgesic agent; Z88.5 Allergy status to narcotic agent; Z88.2 Allergy status to sulfonamides; Z88.8 Allergy status to other drugs, medicaments and biological substances; Z82.5 Family history of asthma and other chronic lower respiratory diseases; Z83.3 Family history of diabetes mellitus
CPT/HCPCS: 36415; 71045; 71046; 80053; 81003; 83605; 83735; 84484; 85025; 85027; 85379; 87040; 87635; 93005; 94640; 96365; 96367; 96372; 96375; 99285

== ENCOUNTER 2022-04-04 16:00 | Inpatient (IN) | payer MEDICARE ==
[~2022-04-04 16:00] MED LIST: AZITHROMYCIN 500 MG in SODIUM CHLORIDE 0.9% 250 ML IVPB SCH
--- NOTE | 2022-04-04 18:38 | ED ---
General Adult HPI - General Chief complaint: Shortness of Breath Stated complaint: COPD Exacerbation Time Seen by Provider: 04/04/22 17:13 Source: patient Mode of arrival: wheelchair Limitations: no limitations - History of Present Illness Initial comments: Patient is a 71-year-old female presents to the emergency room at the direction of her primary care provider with complaints of shortness of breath, cough and fevers ongoing for approximately 1 week she was on outpatient antibiotics of Augmentin along with steroids and albuterol inhaled treatments without significant response. She followed up with her primary care provider today who checked a chest x-ray advising her that she had pneumonia on imaging and needed to be admitted for IV antibiotics due to failed treatment outpatient. She has a past medical history significant for sarcoidosis and tuberculosis in 2000. She has previously had a right lower lobectomy. She chronically wears 3 L nasal cannula oxygen. In addition to her pulmonary history she has a history of fibromyalgia, GERD and hypothyroidism. She denies any chills, hemoptysis chest pain, nausea or vomiting. She denies any other complaints or concerns at this time. - Related Data Home Medications Medication Instructions Recorded Confirmed Omeprazole 20 mg PO DAILY 08/28/16 12/26/21 Levothyroxine Sodium [Synthroid] 88 mcg PO DAILY 10/26/21 12/26/21 Umeclidinium Brm/Vilanterol Tr 1 puff INHALATION RT-DAILY 10/26/21 12/26/21 [Anoro Ellipta 62.5-25 Mcg INH] diphenhydrAMINE HCL [Benadryl] 25 mg PO HS 12/26/21 12/26/21 guaiFENesin [Mucinex] 1,200 mg PO DAILY 12/26/21 12/26/21 Previous Rx's Medication Instructions Recorded Azithromycin [Zithromax] 500 mg PO DAILY #4 tab 12/29/21 Cefdinir [Omnicef] 300 mg PO BID #8 cap 12/29/21 predniSONE [Deltasone] 40 mg PO DAILY 2 Days #4 tab 12/29/21 Allergies Allergy/AdvReac Type Severity Reaction Status Date / Time aspirin Allergy Dyspnea Verified 04/04/22 16:27 ibuprofen [From Motrin] Allergy Dyspnea Verified 04/04/22 16:27 Sulfa (Sulfonamide Allergy Dyspnea Verified 04/04/22 16:27 Antibiotics) codeine AdvReac Confusion Verified 04/04/22 16:27 hydrocodone [From Vicodin] AdvReac Confusion Verified 04/04/22 16:27 Review of Systems ROS Statement: Those systems with pertinent positive or pertinent negative responses have been documented in the HPI. ROS Other: All systems not noted in ROS Statement are negative. Past Medical History Past Medical History: COPD, Fibromyalgia, GERD/Reflux, Pneumonia, Thyroid Disord er Additional Past Medical History / Comment(s): sarcoidosis tb in 2000 had rt lower lobectomy and was tx with meds for 4 months, fusch's dz"needs corneal transplant", uti's, home 02-3 liters n/c History of Any Multi-Drug Resistant Organisms: None Reported Past Surgical History: Breast Surgery, Section, Cholecystectomy, Orthopedic Surgery Additional Past Surgical History / Comment(s): rt lower lobectomy 2000, marah knee arthroscopies, x2 c-sections, colonoscopy/polypectomy(benign), lt breast bx-neg Past Anesthesia/Blood Transfusion Reactions: No Reported Reaction Past Psychological History: No Psychological Hx Reported Smoking Status: Former smoker Past Alcohol Use History: None Reported Past Drug Use History: None Reported - Past Family History Mother Family Medical History: COPD Father Family Medical History: Diabetes Mellitus, Eye Disorder Additional Family Medical History / Comment(s): glaucoma General Exam Limitations: no limitations General appearance: alert, in no apparent distress Head exam: Present: atraumatic, normocephalic, normal inspection Eye exam: Present: normal appearance, PERRL, EOMI. Absent: scleral icterus, conjunctival injection, periorbital swelling ENT exam: Present: normal exam, mucous membranes moist Respiratory exam: Present: wheezes, rales, decreased breath sounds. Absent: respiratory distress, chest wall tenderness Cardiovascular Exam: Present: regular rate, normal rhythm, normal heart sounds. Absent: systolic murmur, diastolic murmur, rubs, gallop, clicks GI/Abdominal exam: Present: soft, normal bowel sounds. Absent: distended, tenderness, guarding, rebound, rigid Rectal exam: Present: deferred Extremities exam: Present: normal inspection, normal capillary refill. Absent: tenderness, pedal edema, joint swelling, calf tenderness Back exam: Present: normal inspection Neurological exam: Present: alert, oriented X3, CN II-XII intact Psychiatric exam: Present: normal affect, normal mood Skin exam: Present: warm, dry, intact, normal color. Absent: rash Course Vital Signs 04/04/22 16:24 Temperature 101.6 F H Pulse Rate 127 H Respiratory 18 Rate Blood Pressure 118/73 O2 Sat by Pulse 94 L Oximetry Medical Decision Making - Medical Decision Making Patient failed outpatient treatment for pneumonia sent in by pulmonary (Jose) for admission for IV antibiotics and IV steroids. Primary care provider is Dr. Porter who admits to Dr. Rodríguez will place admission orders for pneumonia and placed pulmonary on consult. EKG showed mild tachycardia and feet noted. Will give Tylenol. On exam tachycardia resolved heart rate 90 apically. Case discussed with Dr. Joy. - EKG Data EKG Comments: Sinus tachycardia ventricular rate 125 bpm VA interval 136 ms QRS duration 68 ms QT/QTC 270/344 ms PRT axes 58, 53, 58 Disposition Clinical Impression: Community acquired pneumonia, Acute exacerbation of chronic obstructive pulmonary disease Disposition: ADMITTED IP TO THIS HOSP Condition: Stable Is patient prescribed a controlled substance at d/c from ED?: No Referrals: Alexandra Krishnan DO [Primary Care Provider] - 1-2 days Time of Disposition: 18:43
[2022-04-04] MEDS ORDERED: NALOXONE 0.4 MG/ML 1 ML VIAL IV PRN (18:44)
[2022-04-04 18:54] LABS: Basophils # (A) 0.1 k/uL (0-0.2); Basophils % (A) 0 %; Eosinophils # (A) 0.2 k/uL (0-0.7); Eosinophils % (A) 1 %; HCT 34.1 % (34.0-46.0); HGB 10.7 gm/dL (11.4-16.0); Hypochromasia Moderate; Lymphocytes # (A) 1.8 k/uL (1.0-4.8); Lymphocytes % (A) 10 %; MCH 27.4 pg (25.0-35.0); MCHC 31.3 g/dL (31.0-37.0); MCV 87.6 fL (80.0-100.0); Mean Platelet Volume 7.4; Monocytes # (A) 0.9 k/uL (0-1.0); Monocytes % (A) 5 %; Neutrophils # (A) 14.4 k/uL (1.3-7.7); Neutrophils % (A) 82 %; Platelet Count 443 k/uL (150-450); RBC 3.89 m/uL (3.80-5.40); RDW 14.7 % (11.5-15.5); WBC 17.6 k/uL (3.8-10.6)
[2022-04-04 19:02] LABS: INR 1.1 (<1.2); Partial Thromboplastin Time 25.9 sec (22.0-30.0); Prothrombin Time 11.7 sec (9.0-12.0)
[2022-04-04 19:12] LABS: Albumin 3.1 g/dL (3.5-5.0); Calcium 8.6 mg/dL (8.4-10.2); Potassium 4.6 mmol/L (3.5-5.1); Total Bilirubin 0.7 mg/dL (0.2-1.3); Total Protein 6.7 g/dL (6.3-8.2)
[2022-04-04] MEDS: ACETAMINOPHEN TAB 325 MG TAB PO PRN (19:19)
--- NOTE | 2022-04-04 20:05 | XR ---
EXAMINATION TYPE: XR chest 2V DATE OF EXAM: 04/04/2022 COMPARISON: 12/28/2021 INDICATION: Difficulty breathing TECHNIQUE: Frontal and lateral views of the chest are obtained. FINDINGS: The heart size is normal. The pulmonary vasculature is normal. There is a small right pleural effusion. Mild infiltrate may be to the right upper lung field. Follow -up is recommended. IMPRESSION: 1. Small right pleural effusion slightly increased from comparison. 2. Right upper lung infiltrate. 3. Follow-up is recommended
--- NOTE | 2022-04-04 22:22 | P.HPIM ---
History of Present Illness H&P Date: 04/04/22 HISTORY OF PRESENT ILLNESS 71-year-old female one of Dr. Mcconnell patient with past medical history of fibromyalgia, COPD, hypothyroidism and heavy smokingwho was in the hospital last in December 2021 for severe dyspnea and shortness of breath and COPD exacerbation was treated and done well apparently her FEV1 at the time was 27 percentile she require oxygen when she was the hospital shortly after was diagnosed with pneumonia versus bronchitis and had responded well to Rocephin and azithromycin apparently patient had left the hospital with oxygen at the time. 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 She has been doing well until the last 3 days when developed to have significant worsening dyspnea and shortness of breath with minimal exertion along with inspiratory expiratory wheezes and much worsening symptoms. Patient ended up seen Dr. Garcia in his office pulmonary profound patient to be quite dyspneic and significant respiratory distress ended up sending her to the emergency department at [facility] where was seen and evaluated she found to be quite hypoxic at the time and in mild distress having inspiratory expiratory wheezes her laboratory value shows white blood cell of 17,600 mildly left shifted electrolyte panel was normal coverage and influenza were negative, chest x-ray revealed right upper lobe pneumonia with sign and symptom of COPD. Patient was started on Solu-Medrol, DuoNeb, Pulmicort and management for community-acquired pneumonia with Rocephin and azithromycin we will admit patient to the hospital consult pulmonary continue current aggressive management. REVIEW OF SYSTEMS Constitutional: No fever, no chills, no night sweats. No weight change. No weakness, fatigue or lethargy. No daytime sleepiness. EENT: No headache. No blurred vision or double vision, no loss of vision. No loss of Hearing, no ringing in the ears, no dizziness. No nasal drainage or congestion. No epistaxis. No sore throat. Lungs: significant shortness of breath cough wheezes with productive sputum and significant dyspnea with minimum exertion. Cardiovascular: No chest pain, no lower extremity edema. mild palpitation no PND orthopnea no lightheadedness or syncope. Abdominal: No abdominal pain. No nausea, vomiting. No diarrhea. No constipation. No bloody or tarry stools.. No loss of appetite. Genitourinary: No dysuria, increased frequency, urgency. No urinary retention. Musculoskeletal: No myalgias. No muscle weakness, no gait dysfunction, no frequent falls. No back pain. No neck pain. Integumentary: No wounds, no lesions. No rash or pruritus. No unusual bruising. No change in hair or nails. Neurologic: No aphasia. No facial droop. No change in mentation. No head injury. No headache. No paralysis. No paresthesia. Psychiatric: No depression. No anxiety. No mood swings. Endocrine: No abnormal blood sugars. No weight change. No excessive sweating or thirst. No cold intolerance. SOCIAL HISTORY she quit smoking over 10 years ago he smoked pack a day for over 30 years, no alcohol abuse, no drug use, patient does not use any oxygen at home no nebulizer CPAP. FAMILY HISTORY patient had 7 children 3 of them by as maybe 1 by in his 50s from [place], patient had 18 siblings 10 of them had passed from a variety of illness from CVA, CAD, complication of diabetes. Her father dying in the 72 from kidney failure, mother dying in her 70s from advance COPD. PHYSICAL EXAMINATION Gen: This is well-developed laying in bed has tachypnea with mild respiratory distress. HEENT: Head is atraumatic, normocephalic. Pupils equal, round. Sclerae is anicteric. NECK: Supple. No JVD. No lymphadenopathy. No thyromegaly. LUNGS: decreased breath sounds bilaterally with fine rhonchi positive crackles worsening in the right side mostly mid and upper lung montgomery with mild inspiratory expiratory wheezes. No chest wall deformity or tenderness. HEART: Regular rate and rhythm. No murmur. ABDOMEN: Soft. Bowel sounds are present. No masses. No tenderness. EXTREMITIES: No pedal edema. No calf tenderness. NEUROLOGICAL: Patient is awake, alert and oriented x3. Cranial nerves 2 through 12 are grossly intact. ASSESSMENT AND PLAN - acute respiratory failure: Combination of COPD exacerbation along with right- sided pneumonia, patient had difficult time despite outpatient management. Was seen pulmonary and decided best action plan is to have patient hospitalized and IV steroids, updraft treatment, IV antibiotics. Ex - COPD exacerbation: Patient will be steroid, continue DuoNeb along with Pulmicort, pulmonary consultation be done continue oxygen try to keep pulse ox above 90%. - Right-sided pneumonia: With patient's current condition not been hospitalized recently and this is not COVID-19 or influenza patient be treated for community- acquired pneumonia Rocephin and azithromycin will be started. - Hypothyroidism: Continue patient on Synthroid 88 g daily. - GERD: Patient has been on omeprazole 20 mg a day resume medication. - history of tuberculosis post lobectomy and tuberculosis treatment has been clear and doing well. - History of sarcoidosis: No finding consistent with any sarcoidosis patient is stable and inactive. - History of fibromyalgia: Patient is not using any medication for it lately. - GI prophylaxis: Patient will be on PPI. - DVT prophylaxis: Heparin subcutaneous will be use for now. - COVID-19 testing, were negative. - CODE STATUS: Full code Patient will be admitted to the hospital for a minimum of 2 night stay. Past Medical History Past Medical History: COPD, Fibromyalgia, GERD/Reflux, Pneumonia, Thyroid Disorder Additional Past Medical History / Comment(s): sarcoidosis tb in 2000 had rt lower lobectomy and was tx with meds for 4 months, fusch's dz"needs corneal transplant", uti's, home 02-3 liters n/c History of Any Multi-Drug Resistant Organisms: None Reported Past Surgical History: Breast Surgery, Section, Cholecystectomy, Orth opedic Surgery Additional Past Surgical History / Comment(s): rt lower lobectomy 2000, marah knee arthroscopies, x2 c-sections, colonoscopy/polypectomy(benign), lt breast bx-neg Past Anesthesia/Blood Transfusion Reactions: No Reported Reaction Past Psychological History: No Psychological Hx Reported Smoking Status: Former smoker Past Alcohol Use History: None Reported Past Drug Use History: None Reported - Past Family History Mother Family Medical History: COPD Father Family Medical History: Diabetes Mellitus, Eye Disorder Additional Family Medical History / Comment(s): glaucoma Medications and Allergies Home Medications Medication Instructions Recorded Confirmed Type Omeprazole 20 mg PO DAILY 08/28/16 04/04/22 History Levothyroxine Sodium [Synthroid] 88 mcg PO DAILY 10/26/21 04/04/22 History Umeclidinium Brm/Vilanterol Tr 1 puff INHALATION RT-DAILY 10/26/21 04/04/22 History [Anoro Ellipta 62.5-25 Mcg INH] Albuterol Sulfate [Albuterol 2 puff PO RT-Q6H PRN 04/04/22 04/04/22 History Sulfate Hfa] Allergies Allergy/AdvReac Type Severity Reaction Status Date / Time aspirin Allergy Dyspnea Verified 04/04/22 19:14 ibuprofen [From Motrin] Allergy Dyspnea Verified 04/04/22 19:14 Sulfa (Sulfonamide Allergy Dyspnea Verified 04/04/22 19:14 Antibiotics) codeine AdvReac Confusion Verified 04/04/22 19:14 hydrocodone [From Vicodin] AdvReac Confusion Verified 04/04/22 19:14 Physical Exam Vitals: Vital Signs Temp Pulse Resp BP Pulse Ox 04/04/22 21:24 97.9 F 103 H 22 123/74 92 L 04/04/22 19:20 119 H 20 99/64 94 L 04/04/22 16:24 101.6 F H 127 H 18 118/73 94 L Intake and Output 04/04/22 04/04/22 04/04/22 06:59 14:59 22:59 Other: Weight 83.915 kg Results CBC & Chem 7: 04/04/22 18:25 04/04/22 18:25 Labs: Abnormal Lab Results - Last 24 Hours (Table) 04/04/22 04/04/22 Range/Units 18:25 18:25 WBC 17.6 H (3.8-10.6) k/uL Hgb 10.7 L (11.4-16.0) gm/dL Neutrophils # 14.4 H (1.3-7.7) k/uL Sodium 135 L (137-145) mmol/L Alkaline Phosphatase 139 H (38-126) U/L Albumin 3.1 L (3.5-5.0) g/dL
[2022-04-04] MEDS ORDERED: cefTRIAXone IN SWFI 1,000 MG/10 ML SYRINGE IVP STA (22:29)
[2022-04-04] MEDS ORDERED: AZITHROMYCIN 500 MG in SODIUM CHLORIDE 0.9% 250 ML IVPB ONE (22:30)
[2022-04-04] MEDS: methylPREDNISolone SOD SUCCI 125 MG/2 ML VIAL IV SCH (23:27)
[2022-04-05] MEDS: methylPREDNISolone SOD SUCCI 125 MG/2 ML VIAL IV SCH ×3 (05:29→18:09)
[2022-04-05] MEDS: LEVOTHYROXINE 88 MCG TAB PO SCH (05:33)
[2022-04-05] MEDS: BUDESONIDE 0.5 MG/2 ML NEBU INHALATION SCH ×2 (07:28→20:00)
[2022-04-05] MEDS: IPRATROPIUM 0.5 MG/2.5 ML NEBU INHALATION SCH ×4 (07:28→20:15)
[2022-04-05] MEDS: FORMOTEROL FUMARATE 20 MCG/2 ML NEBU INHALATION SCH ×2 (07:29→20:00)
[2022-04-05] MEDS: PANTOPRAZOLE 40 MG TABLET PO SCH (07:35)
[2022-04-05] MEDS: HEPARIN SODIUM,PORCINE/PF 5,000 UNIT/0.5 ML SYRINGE SQ SCH ×2 (09:47→21:36)
--- NOTE | 2022-04-05 10:36 | P.PN ---
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 She has been doing well until the last 3 days when developed to have significant worsening dyspnea and shortness of breath with minimal exertion along with inspiratory expiratory wheezes and much worsening symptoms. Patient ended up seen Dr. Garcia in his office pulmonary profound patient to be quite dyspneic and significant respiratory distress ended up sending her to the emergency department at [facility] where was seen and evaluated she found to be quite hypoxic at the time and in mild distress having inspiratory expiratory wheezes her laboratory value shows white blood cell of 1 7,600 mildly left shifted electrolyte panel was normal coverage and influenza were negative, chest x-ray revealed right upper lobe pneumonia with sign and symptom of COPD. Patient was started on Solu-Medrol, DuoNeb, Pulmicort and management for community-acquired pneumonia with Rocephin and azithromycin we will admit patient to the hospital consult pulmonary continue current aggressive management. 04/05: Patient is seen today in the emergency center waiting for a bed on the [facility] floor. She has been afebrile, heart rate 94, blood pressure 142/86 and pulse ox 97% on 2 L nasal cannula. Patient is maintained on ceftriaxone and azithromycin, Solu-Medrol at 60 mg IV every 6 hours. Blood cultures are status received. Repeat blood work ordered for tomorrow. Patient has been seen by pulmonary medicine with plan for sputum culture and may consider bronchoscopy to rule out persistent colonization/infection. REVIEW OF SYSTEMS Constitutional: No fever, no chills, no night sweats. No weight change. No weakness, fatigue or lethargy. No daytime sleepiness. EENT: No headache. No blurred vision or double vision, no loss of vision. No loss of Hearing, no ringing in the ears, no dizziness. No nasal drainage or congestion. No epistaxis. No sore throat. Lungs: significant shortness of breath cough wheezes with productive sputum and significant dyspnea with minimum exertion. Cardiovascular: No chest pain, no lower extremity edema. mild palpitation no PND orthopnea no lightheadedness or syncope. Abdominal: No abdominal pain. No nausea, vomiting. No diarrhea. No constipation. No bloody or tarry stools.. No loss of appetite. Genitourinary: No dysuria, increased frequency, urgency. No urinary retention. Musculoskeletal: No myalgias. No muscle weakness, no gait dysfunction, no frequent falls. No back pain. No neck pain. Integumentary: No wounds, no lesions. No rash or pruritus. No unusual bruising. No change in hair or nails. Neurologic: No aphasia. No facial droop. No change in mentation. No head injury. No headache. No paralysis. No paresthesia. Psychiatric: No depression. No anxiety. No mood swings. Endocrine: No abnormal blood sugars. No weight change. No excessive sweating or thirst. No cold intolerance. PHYSICAL EXAMINATION Gen: This is well-developed laying in bed has tachypnea with mild respiratory distress. HEENT: Head is atraumatic, normocephalic. Pupils equal, round. Sclerae is anict vishnu. NECK: Supple. No JVD. No lymphadenopathy. No thyromegaly. LUNGS: decreased breath sounds bilaterally with fine rhonchi positive crackles worsening in the right side mostly mid and upper lung montgomery with mild inspiratory expiratory wheezes. No chest wall deformity or tenderness. HEART: Regular rate and rhythm. No murmur. ABDOMEN: Soft. Bowel sounds are present. No masses. No tenderness. EXTREMITIES: No pedal edema. No calf tenderness. NEUROLOGICAL: Patient is awake, alert and oriented x3. Cranial nerves 2 through 12 are grossly intact. ASSESSMENT AND PLAN - acute respiratory failure: Combination of COPD exacerbation along with right- sided pneumonia, patient had difficult time despite outpatient management. Was seen pulmonary and decided best action plan is to have patient hospitalized and IV steroids, updraft treatment, IV antibiotics. Sputum culture, possible bronchoscopy - COPD exacerbation: Patient will be steroid, continue DuoNeb along with Pulmicort, pulmonary consultation be done continue oxygen try to keep pulse ox above 90%. - Right-sided pneumonia: With patient's current condition not been hospitalized recently and this is not COVID-19 or influenza patient be treated for community- acquired pneumonia Rocephin and azithromycin will be started. - Hypothyroidism: Continue patient on Synthroid 88 g daily. - GERD: Patient has been on omeprazole 20 mg a day resume medication. - history of tuberculosis post lobectomy and tuberculosis treatment has been clear and doing well. - History of sarcoidosis: No finding consistent with any sarcoidosis patient is stable and inactive. - History of fibromyalgia: Patient is not using any medication for it lately. - GI prophylaxis: Patient will be on PPI. - DVT prophylaxis: Heparin subcutaneous will be use for now. - COVID-19 testing, were negative. - CODE STATUS: Full code DISCHARGE DIAGNOSES Impression and plan of care have been directed as dictated by the signing physician. Esthela Mendoza nurse practitioner acting as scribe for signing physician. Objective - Vital Signs Vital signs: Vital Signs Temp 97.6 F 04/05/22 07:42 Pulse 94 04/05/22 07:42 Resp 18 04/05/22 07:42 BP 142/86 04/05/22 07:42 Pulse Ox 97 04/05/22 07:42 FiO2 Intake & Output 04/04/22 04/05/22 04/05/22 18:59 06:59 18:59 Weight 83.915 kg Other: # Voids 1 # Bowel Movements 1 - Labs CBC & Chem 7: 04/04/22 18:25 04/04/22 18:25 Labs: Abnormal Lab Results - Last 24 Hours (Table) 04/04/22 04/04/22 Range/Units 18:25 18:25 WBC 17.6 H (3.8-10.6) k/uL Hgb 10.7 L (11.4-16.0) gm/dL Neutrophils # 14.4 H (1.3-7.7) k/uL Sodium 135 L (137-145) mmol/L Alkaline Phosphatase 139 H (38-126) U/L Albumin 3.1 L (3.5-5.0) g/dL
[2022-04-05] MEDS: IPRATROPIUM-ALBUTEROL 3 ML NEB INHALATION PRN ×2 (11:51→20:00)
[2022-04-05] MEDS: AZITHROMYCIN 500 MG in SODIUM CHLORIDE 0.9% 250 ML IVPB SCH (12:13)
--- NOTE | 2022-04-05 15:32 | P.CNPUL ---
History of Present Illness Consult date: 04/05/22 Reason for consult: COPD History of present illness: this is a 71-year-old female patient is coming in for another COPD exacerbation. The patient is known to us and the patient is a case of advanced COPD with an FEV1 of 27% of predicted. Her last hospitalization was in December 2021 where she came in for an acute COPD exacerbation and she was treated and she was discharged home. She is oxygen dependent and she usually uses 3 L O2 nasal cannula. She has previous history of tuberculosis and she has undergone a previous right lower lobectomy and this was followed up with antimicrobial treatment back in 2000. She also has a questionable history of sarcoidosis which is been essentially inactive and stable. She follows up in our office and she sees my partners. The patient has also other comorbidities. She has fibromyalgia, hypothyroidism in addition to COPD. The patient has received COVID 19 vaccination 2. The patient presented emergency department having worsening shortness of breath. She was initially seen at the [facility] office for an acute COPD exacerbation. It was advised for her to come into the hospital for further evaluation and patient was actually admitted to the hospital. Chest x-ray shows chronic findings and I'm not sure there is any indication for an acute pneumonia. She is afebrile. She is hemodynamically stable. No pleurisy or hemoptysis. No altered mentation. She was started on bronchodilators and IV Solu-Medrol and she was also started on a combination of Rocephin and Zithromax. She is already feeling better. Review of Systems CONSTITUTIONAL: Positive for fever, chills Denies any recent significant weight loss or weight gain. EYES: Denies change in vision. EARS, NOSE, MOUTH, THROAT: Denies headaches, denies sore throat. CARDIOVASCULAR: Denies chest pain, palpitations or syncopal episodes. RESPIRATORY: Positive for shortness of breath, cough, congestion no hemoptysis. GASTROINTESTINAL: Denies change in appetite, denies abdominal pain GENITOURINARY: Denies hematuria, denies infections. MUSKULOSKELETAL: Denies pain, denies swelling. INTEGUMENTARY: Denies rash, denies eczema. NEUROLOGICAL: Denies recent memory loss, no recent seizure activity. PSYCHIATRIC: Denies anxiety, denies depression. HEMATOLOGIC/LYMPHATIC: Denies anemia, denies enlarged lymph nodes. Past Medical History Past Medical History: COPD, Fibromyalgia, GERD/Reflux, Pneumonia, Thyroid Disorder Additional Past Medical History / Comment(s): sarcoidosis tb in 2000 had rt lower lobectomy and was tx with meds for 4 months, fusch's dz"needs corneal transplant", uti's, home 02-3 liters n/c History of Any Multi-Drug Resistant Organisms: None Reported Past Surgical History: Breast Surgery, Section, Cholecystectomy, Orthopedic Surgery Additional Past Surgical History / Comment(s): rt lower lobectomy 2000, marah knee arthroscopies, x2 c-sections, colonoscopy/polypectomy(benign), lt breast bx-neg Past Anesthesia/Blood Transfusion Reactions: No Reported Reaction Past Psychological History: No Psychological Hx Reported Smoking Status: Former smoker Past Alcohol Use History: None Reported Past Drug Use History: None Reported - Past Family History Mother Family Medical History: COPD Father Family Medical History: Diabetes Mellitus, Eye Disorder Additional Family Medical History / Comment(s): glaucoma Medications and Allergies Home Medications Medication Instructions Recorded Confirmed Type Omeprazole 20 mg PO DAILY 08/28/16 04/04/22 History Levothyroxine Sodium [Synthroid] 88 mcg PO DAILY 10/26/21 04/04/22 History Umeclidinium Brm/Vilanterol Tr 1 puff INHALATION RT-DAILY 10/26/21 04/04/22 History [Anoro Ellipta 62.5-25 Mcg INH] Albuterol Sulfate [Albuterol 2 puff PO RT-Q6H PRN 04/04/22 04/04/22 History Sulfate Hfa] Allergies Allergy/AdvReac Type Severity Reaction Status Date / Time aspirin Allergy Dyspnea Verified 04/04/22 19:14 ibuprofen [From Motrin] Allergy Dyspnea Verified 04/04/22 19:14 Sulfa (Sulfonamide Allergy Dyspnea Verified 04/04/22 19:14 Antibiotics) codeine AdvReac Confusion Verified 04/04/22 19:14 hydrocodone [From Vicodin] AdvReac Confusion Verified 04/04/22 19:14 Physical Exam Vitals: Vital Signs Temp Pulse Pulse Resp BP BP Pulse Ox 04/05/22 12:09 90 04/05/22 11:51 91 04/05/22 08:02 89 04/05/22 07:52 82 04/05/22 07:49 82 04/05/22 07:42 97.6 F 94 18 142/86 97 06/30/22 07:34 82 97 04/05/22 02:00 98.7 F 95 12 117/86 96 04/04/22 21:24 97.9 F 103 H 22 123/74 92 L 04/04/22 19:20 119 H 20 99/64 94 L 04/04/22 16:24 101.6 F H 127 H 18 118/73 94 L Intake and Output 04/05/22 04/05/22 04/05/22 06:59 14:59 22:59 Other: # Voids 1 # Bowel Movements 1 GENERAL EXAM: Alert, very pleasant 71-year-old female patient, on 3 L nasal cannula, comfortable in no apparent distress. HEAD: Normocephalic. EYES: Normal reaction of pupils, equal size. NOSE: Clear with pink turbinates. THROAT: No erythema or exudates. NECK: No masses, no JVD. CHEST: No chest wall deformity. LUNGS: Equal air entry with few crackles in the left lung. Diminished throughout. CVS: S1 and S2 normal with no audible murmur, regular rhythm. ABDOMEN: No hepatosplenomegaly, normal bowel sounds, no guarding or rigidity. SPINE: No scoliosis or deformity SKIN: No rashes CENTRAL NERVOUS SYSTEM: No focal deficits, tone is normal in all 4 extremities. EXTREMITIES: There is no peripheral edema. No clubbing, no cyanosis. Peripheral pulses are intact. Results - Laboratory Findings CBC and BMP: 04/04/22 18:25 04/04/22 18:25 PT/INR, D-dimer PT 11.7 sec (9.0-12.0) 04/04/22 18:25 INR 1.1 (<1.2) 04/04/22 18:25 Abnormal lab findings: Abnormal Labs 04/04/22 04/04/22 18:25 18:25 WBC 17.6 H Hgb 10.7 L Neutrophils # 14.4 H Sodium 135 L Alkaline Phosphatase 139 H Albumin 3.1 L - Diagnostic Findings Chest x-ray: image reviewed Assessment and Plan Plan: acute COPD exacerbation without clear evidence of an underlying pneumonia. Chest x-ray findings are essentially chronic related to previous tuberculosis infection of the lung and the patient has volume loss in the right lung knowing that the patient has undergone a previous right lower lobe resection. Representation is typical of an acute COPD exacerbation Severe COPD with an FEV1 of 27% of predicted Chronic hypoxic respiratory failure maintained on O2 at 3 L Previous history of TB back in 2000 and the patient undergone previous right lower lobe resection followed by antimicrobial treatment Hypothyroidism Fibromyalgia Acid reflux History of heavy smoking Plan Agree on the current treatment. We'll collect sputum Gram stain and culture. If unable to collect sputum commensal be worthwhile to consider bronchoscopy to rule out any persistent colonization/infection with various microbes including gram-positive and gram- negative bacteria. Continue bronchodilators and steroids for now and the current antibiotic coverage is adequate we'll continue to follow
[2022-04-05] MEDS: ACETAMINOPHEN TAB 325 MG TAB PO PRN (21:36)
[2022-04-06] MEDS: methylPREDNISolone SOD SUCCI 125 MG/2 ML VIAL IV SCH ×4 (00:04→17:02)
[2022-04-06 07:22] LABS: Glucose,Whole Blood 137 mg/dL (70-110)
[2022-04-06] MEDS: AZITHROMYCIN 500 MG in SODIUM CHLORIDE 0.9% 250 ML IVPB SCH (07:47)
[2022-04-06] MEDS: PANTOPRAZOLE 40 MG TABLET PO SCH (07:48)
[2022-04-06] MEDS: INSULIN ASPART (NovoLOG) 100 UNIT/ML VIAL SQ SCH ×4 (07:48→20:45)
[2022-04-06] MEDS: HEPARIN SODIUM,PORCINE/PF 5,000 UNIT/0.5 ML SYRINGE SQ SCH ×2 (07:48→20:47)
[2022-04-06] MEDS: FORMOTEROL FUMARATE 20 MCG/2 ML NEBU INHALATION SCH ×2 (08:29→20:41)
[2022-04-06] MEDS: IPRATROPIUM 0.5 MG/2.5 ML NEBU INHALATION SCH ×4 (08:29→19:53)
[2022-04-06] MEDS: BUDESONIDE 0.5 MG/2 ML NEBU INHALATION SCH ×2 (08:29→20:41)
[2022-04-06] MEDS: LEVOTHYROXINE 88 MCG TAB PO SCH (08:31)
--- NOTE | 2022-04-06 09:23 | P.PN ---
Subjective Progress Note Date: 04/06/22 HISTORY OF PRESENT ILLNESS 71-year-old female one of Dr. Mcconnell patient with past medical history of fibromyalgia, COPD, hypothyroidism and heavy smokingwho was in the hospital last in December 2021 for severe dyspnea and shortness of breath and COPD exacerbation was treated and done well apparently her FEV1 at the time was 27 percentile she require oxygen when she was the hospital shortly after was diagnosed with pneumonia versus bronchitis and had responded well to Rocephin and azithromycin apparently patient had left the hospital with oxygen at the time. 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 She has been doing well until the last 3 days when developed to have significant worsening dyspnea and shortness of breath with minimal exertion along with inspiratory expiratory wheezes and much worsening symptoms. Patient ended up seen Dr. Garcia in his office pulmonary profound patient to be quite dyspneic and significant respiratory distress ended up sending her to the emergency department at [facility] where was seen and evaluated she found to be quite hypoxic at the time and in mild distress having inspiratory expiratory wheezes her laboratory value shows white blood cell of 1 7,600 mildly left shifted electrolyte panel was normal coverage and influenza were negative, chest x-ray revealed right upper lobe pneumonia with sign and symptom of COPD. Patient was started on Solu-Medrol, DuoNeb, Pulmicort and management for community-acquired pneumonia with Rocephin and azithromycin we will admit patient to the hospital consult pulmonary continue current aggressive management. 04/05: Patient is seen today in [facility] emergency [facility] She has been afebrile, heart rate 94, blood pressure 142/86 and pulse ox 97% on 2 L nasal cannula. Patient is maintained on ceftriaxone and azithromycin, Solu-Medrol at 60 mg IV every 6 hours. Blood cultures are status received. Repeat blood work ordered for tomorrow. Patient has been seen by pulmonary medicine with plan for sputum culture and may consider bronchoscopy to rule out persistent colonization/infection. 04/06: Patient is afebrile, heart rate 91, blood pressure 135/83 and pulse ox 90% on 2 L nasal cannula. Blood cultures showing no growth at 24 hours. Sputum culture is on collected. Repeat blood work results are pending at this time. Troponin medicine may plan for bronchoscopy. Patient's breathing status is improved but not back to baseline, she states she is less congested. Patient is normally on home O2 at 3 L.. Patient is continued on IV Solu-Medrol 60 mg every 6 hours, DuoNeb treatments, Pulmicort, ceftriaxone and azithromycin. Anticipate possible discharge on Saturday or Saturday. REVIEW OF SYSTEMS Constitutional: No fever, no chills, no night sweats. No weight change. No weakness, fatigue or lethargy. No daytime sleepiness. EENT: No headache. No blurred vision or double vision, no loss of vision. No loss of Hearing, no ringing in the ears, no dizziness. No nasal drainage or congestion. No epistaxis. No sore throat. Lungs: significant shortness of breath cough wheezes with productive sputum and significant dyspnea with minimum exertion, all symptoms improving. Cardiovascular: No chest pain, no lower extremity edema. mild palpitation no PND orthopnea no lightheadedness or syncope. Abdominal: No abdominal pain. No nausea, vomiting. No diarrhea. No constipation. No bloody or tarry stools.. No loss of appetite. Genitourinary: No dysuria, increased frequency, urgency. No urinary retention. Musculoskeletal: No myalgias. No muscle weakness, no gait dysfunction, no frequent falls. No back pain. No neck pain. Integumentary: No wounds, no lesions. No rash or pruritus. No unusual bruising. No change in hair or nails. Neurologic: No aphasia. No facial droop. No change in mentation. No head injury. No headache. No paralysis. No paresthesia. Psychiatric: No depression. No anxiety. No mood swings. Endocrine: No abnormal blood sugars. No weight change. No excessive sweating or thirst. No cold intolerance. PHYSICAL EXAMINATION Gen: This is well-developed laying in bed has tachypnea with mild respiratory distress. HEENT: Head is atraumatic, normocephalic. Pupils equal, round. Sclerae is anicteric. NECK: Supple. No JVD. No lymphadenopathy. No thyromegaly. LUNGS: decreased breath sounds bilaterally with fine rhonchi positive crackles worsening in the right side mostly mid and upper lung mont[place] with mild inspiratory expiratory wheezes. No chest wall deformity or tenderness. HEART: Regular rate and rhythm. No murmur. ABDOMEN: Soft. Bowel sounds are present. No masses. No tenderness. EXTREMITIES: No pedal edema. No calf tenderness. NEUROLOGICAL: Patient is awake, alert and oriented x3. Cranial nerves 2 through 12 are grossly intact. ASSESSMENT AND PLAN - acute on chronic hypoxic respiratory failure: Combination of COPD exacerbation along with right-sided pneumonia, patient had difficult time despite outpatient management. Was seen pulmonary and decided best action plan is to have patient hospitalized and IV steroids, updraft treatment, IV antibiotics. Sputum culture, possible bronchoscopy. The patient is normally on 3 L nasal cannula at home. - COPD exacerbation: Patient will be steroid, continue DuoNeb along with Pu lmicort, pulmonary consultation be done continue oxygen try to keep pulse ox above 90%. - Right-sided pneumonia: With patient's current condition not been hospitalized recently and this is not COVID-19 or influenza patient be treated for community- acquired pneumonia Rocephin and azithromycin continued. - Hypothyroidism: Continue patient on Synthroid 88 g daily. - GERD: Patient has been on omeprazole 20 mg a day resume medication. - history of tuberculosis post lobectomy and tuberculosis treatment has been clear and doing well. - History of sarcoidosis: No finding consistent with any sarcoidosis patient is stable and inactive. - History of fibromyalgia: Patient is not using any medication for it lately. - GI prophylaxis: Patient will be on PPI. - DVT prophylaxis: Heparin subcutaneous will be use for now. - COVID-19 testing, were negative. - CODE STATUS: Full code DISCHARGE PLAN Home on Saturday or Saturday Impression and plan of care have been directed as dictated by the signing physician. Esthela Mendoza nurse practitioner acting as scribe for signing physician. Objective - Vital Signs Vital signs: Vital Signs Temp 98.0 F 04/06/22 01:26 Pulse 91 04/06/22 01:26 Resp 22 04/06/22 01:26 BP 135/83 04/06/22 01:26 Pulse Ox 98 04/06/22 01:26 FiO2 Intake & Output 04/05/22 04/06/22 04/06/22 18:59 06:59 18:59 Weight 83.915 kg Other: # Voids 3 - Labs CBC & Chem 7: 04/04/22 18:25 04/04/22 18:25 Labs: Abnormal Lab Results - Last 24 Hours (Table) 04/06/22 Range/Units 07:21 POC Glucose (mg/dL) 137 H (70-110) mg/dL Microbiology - Last 24 Hours (Table) 04/04/22 22:53 Blood Culture - Preliminary Blood No Growth after 24 hours 04/04/22 18:26 Blood Culture - Preliminary Blood No Growth after 24 hours
--- NOTE | 2022-04-06 11:24 | CDI ---
Documentation Clarification Form Date: 04/06/2022 11:03:08 AM From: Gabi Walton RN CCDS Admit Date: 04/04/2022 06:09:00 PM Patient Name: Sandra Brown Visit Number: [id number] Discharge Date: ATTENTION: The Clinical Documentation Specialists (CDI) and [facility] Coding Staff appreciate your assistance in clarifying documentation. Please respond to the clarification below the line at the bottom and electronically sign. The CDI & [facility] Coding staff will review the response and follow-up if needed. Please note: Queries are made part of the Legal Health Record. If you have any questions, please contact the author of this message via ITS. Dr. Yrn Rodríguez Conflicting documentation has been found in the medical record. As attending physician, please provide clarification. Chronic hypoxic respiratory failure, Pulmonary consult, 04/05. Acute on chronic respiratory failure, Medicine progress note, 04/06. History/Risk Factors: 71-year-old male presents to the ED with shortness of breath and fevers for one week. Medical History: COPD, Home oxygen 2-3L nasal cannula. 04/04, H&P. Clinical Indicators: 04/04, VSS: B/P 118/73; HR 127; Temp 101.6 F Oral; RR 18; SpO2 94% nasal cannula 2L 04/04, CXR: Small right pleural effusion slightly increased from comparison. Right upper lung infiltrates. Treatment: 04/04 - to current 2L nasal cannula Please clarify which diagnosis is most appropriate: [ ] Chronic hypoxic respiratory failure [ ] Acute on chronic respiratory failure [xx] Other (please specify) _Chronic Atherosclerotic heart disease [ ] Unable to determine (Template Last Revised: December 2020) MTDD
[2022-04-06 11:32] LABS: Glucose,Whole Blood 136 mg/dL (70-110)
[2022-04-06 11:41] LABS: HCT 32.1 % (37.2-46.3); HGB 9.2 g/dL (12.0-15.0); MCH 25.7 pg (27.0-32.0); MCHC 28.7 g/dL (32.0-37.0); MCV 89.7 fL (80.0-97.0); Mean Platelet Volume 9.7 fL (9.5-12.2); NRBC Per 100 WBC 0 /100 WBCS (0.0-0.0); Platelet Count 482 X 10*3/uL (140-440); RBC 3.58 X 10*6/uL (4.10-5.20); RDW 14.7 % (11.5-14.5); WBC 13.99 X 10*3/uL (4.50-10.00)
[2022-04-06 11:46] LABS: ALT 24 U/L (8-44); AST 18 U/L (13-35); African American GFR (CKD) 104.4 (60.0-200.0); Albumin 2.8 g/dL (3.8-4.9); Albumin/Globulin Ratio 0.83 (1.60-3.17); Alkaline Phosphatase 98 U/L (41-126); BUN/Creat Ratio 26.17 Ratio (12.00-20.00); Blood Urea Nitrogen 17.3 mg/dL (9.0-27.0); Calcium 9.1 mg/dL (8.7-10.3); Carbon Dioxide 25.4 mmol/L (20.0-27.5); Chloride 105 mmol/L (96-109); Globulin 3.4 g/dL (1.6-3.3); Glucose 136 mg/dL (70-110); Non-African American GFR(CKD) 90.1 (60.0-200.0); Potassium 4.4 mmol/L (3.5-5.5); Sodium 141 mmol/L (135-145); Total Bilirubin <0.15 mg/dL (0.30-1.20); Total Protein 6.2 g/dL (6.2-8.2)
[2022-04-06] MEDS: IPRATROPIUM-ALBUTEROL 3 ML NEB INHALATION PRN ×3 (12:14→19:54)
--- NOTE | 2022-04-06 13:23 | P.PN ---
Subjective Progress Note Date: 04/06/22 On today's evaluation, the patient is being seen in follow-up. On the medical floor. The patient was hospitalized for an acute COPD exacerbation. Marked improvement since yesterday the patient is much less bronchospastic and wheezy on today's evaluation. No significant chest pain. No significant cough or sputum production. No shortness of breath as the patient is being treated with a combination of DuoNeb nebulized treatments around the clock, Pulmicort Respules in combination with Perforomist nebulized treatments twice a day, IV Solu Medrol 60 mg every 6 hours and she is also on IV Solu-Medrol and IV Rocephin. The blood work shows a white cell count of 15.9 with a hemoglobin 9.2 and the patient has a sodium level of 141, potassium of 4.4, BUN of 70 with a creatinine 0.7. COVID 19 testing was negative. Influenza screen was negative. Objective - Vital Signs Vital signs: Vital Signs Temp 97.8 F 04/06/22 08:00 Pulse 92 04/06/22 12:25 Resp 15 04/06/22 08:00 BP 134/72 04/06/22 08:00 Pulse Ox 98 04/06/22 08:00 FiO2 Intake & Output 04/05/22 04/06/22 04/06/22 18:59 06:59 18:59 Intake Total 250 Balance 250 Weight 83.915 kg Intake: Intake, IV Titration 250 Amount Azithromycin 500 mg In 250 Sodium Chloride 0.9% 250 ml @ 250 mls/hr IVPB DAILY [facility] Rx#:[id number] Other: # Voids 3 - Exam GENERAL EXAM: Alert, very pleasant 71-year-old female patient, on 3 L nasal cannula, comfortable in no apparent distress. HEAD: Normocephalic. EYES: Normal reaction of pupils, equal size. NOSE: Clear with pink turbinates. THROAT: No erythema or exudates. NECK: No masses, no JVD. CHEST: No chest wall deformity. LUNGS: Equal air entry with few crackles in the left lung. Diminished throug hout. CVS: S1 and S2 normal with no audible murmur, regular rhythm. ABDOMEN: No hepatosplenomegaly, normal bowel sounds, no guarding or rigidity. SPINE: No scoliosis or deformity SKIN: No rashes CENTRAL NERVOUS SYSTEM: No focal deficits, tone is normal in all 4 extremities. EXTREMITIES: There is no peripheral edema. No clubbing, no cyanosis. Peripheral pulses are intact. - Labs CBC & Chem 7: 04/06/22 07:04/06/22 07:01 Labs: Abnormal Lab Results - Last 24 Hours (Table) 04/06/22 04/06/22 04/06/22 Range/Units 07:01 07:01 07:21 WBC 13.99 H (4.50-10.00) X 10*3/uL RBC 3.58 L (4.10-5.20) X 10*6/uL Hgb 9.2 L (12.0-15.0) g/dL Hct 32.1 L (37.2-46.3) % MCH 25.7 L (27.0-32.0) pg MCHC 28.7 L (32.0-37.0) g/dL RDW 14.7 H (11.5-14.5) % Plt Count 482 H (140-440) X 10*3/uL BUN/Creatinine Ratio 26.17 H (12.00-20.00) Ratio Glucose 136 H (70-110) mg/dL POC Glucose (mg/dL) 137 H (70-110) mg/dL Total Bilirubin <0.15 L (0.30-1.20) mg/dL Albumin 2.8 L (3.8-4.9) g/dL Globulin 3.4 H (1.6-3.3) g/dL Albumin/Globulin Ratio 0.83 L (1.60-3.17) g/dL 04/06/22 Range/Units 11:30 WBC (4.50-10.00) X 10*3/uL RBC (4.10-5.20) X 10*6/uL Hgb (12.0-15.0) g/dL Hct (37.2-46.3) % MCH (27.0-32.0) pg MCHC (32.0-37.0) g/dL RDW (11.5-14.5) % Plt Count (140-440) X 10*3/uL BUN/Creatinine Ratio (12.00-20.00) Ratio Glucose (70-110) mg/dL POC Glucose (mg/dL) 136 H (70-110) mg/dL Total Bilirubin (0.30-1.20) mg/dL Albumin (3.8-4.9) g/dL Globulin (1.6-3.3) g/dL Albumin/Globulin Ratio (1.60-3.17) g/dL Microbiology - Last 24 Hours (Table) 04/04/22 22:53 Blood Culture - Preliminary Blood No Growth after 24 hours 04/04/22 18:26 Blood Culture - Preliminary Blood No Growth after 24 hours Assessment and Plan Plan: acute COPD exacerbation without clear evidence of an underlying pneumonia. Chest x-ray findings are essentially chronic related to previous tuberculosis in fection of the lung and the patient has volume loss in the right lung knowing that the patient has undergone a previous right lower lobe resection. Representation is typical of an acute COPD exacerbation, the patient is clinically improving and the patient is much improved compared to yesterday Severe COPD with an FEV1 of 27% of predicted Chronic hypoxic respiratory failure maintained on O2 at 3 L Previous history of TB back in 2000 and the patient undergone previous right lower lobe resection followed by antimicrobial treatment Hypothyroidism Fibromyalgia Acid reflux History of heavy smoking Plan Agree on the current treatment. Clinically improving and will continue same treatment for now Blood cultures been negative and the patient is unable to give us a sputum sample Possible discharge within the next 24 hours on a prednisone burst taper in addition to routine maintenance medications. No need for bronchoscopy at this point in time. we'll continue to follow
[2022-04-06 15:59] LABS: Glucose,Whole Blood 173 mg/dL (70-110)
[2022-04-06 20:31] LABS: Glucose,Whole Blood 143 mg/dL (70-110)
[2022-04-07] MEDS: methylPREDNISolone SOD SUCCI 125 MG/2 ML VIAL IV SCH ×3 (00:03→11:36)
[2022-04-07] MEDS: LEVOTHYROXINE 88 MCG TAB PO SCH (05:30)
[2022-04-07 06:55] LABS: Glucose,Whole Blood 115 mg/dL (70-110)
[2022-04-07] MEDS: INSULIN ASPART (NovoLOG) 100 UNIT/ML VIAL SQ SCH ×2 (06:55→11:36)
[2022-04-07] MEDS: PANTOPRAZOLE 40 MG TABLET PO SCH (06:59)
[2022-04-07] MEDS: HEPARIN SODIUM,PORCINE/PF 5,000 UNIT/0.5 ML SYRINGE SQ SCH (06:59)
[2022-04-07] MEDS: FORMOTEROL FUMARATE 20 MCG/2 ML NEBU INHALATION SCH (07:55)
[2022-04-07] MEDS: IPRATROPIUM 0.5 MG/2.5 ML NEBU INHALATION SCH ×2 (07:55→11:24)
[2022-04-07] MEDS: BUDESONIDE 0.5 MG/2 ML NEBU INHALATION SCH (07:55)
[2022-04-07 08:15] VITALS: RESP 18
--- NOTE | 2022-04-07 10:24 | P.PN ---
Subjective Progress Note Date: 04/07/22 On today's evaluation, the patient is being seen in follow-up. On the medical floor. The patient was hospitalized for an acute COPD exacerbation. Marked improvement since yesterday the patient is much less bronchospastic and wheezy on today's evaluation. No significant chest pain. No significant cough or sputum production. No shortness of breath as the patient is being treated with a combination of DuoNeb nebulized treatments around the clock, Pulmicort Respules in combination with Perforomist nebulized treatments twice a day, IV Solu Medrol 60 mg every 6 hours and she is also on IV Solu-Medrol and IV Rocephin. The blood work shows a white cell count of 15.9 with a hemoglobin 9.2 and the patient has a sodium level of 141, potassium of 4.4, BUN of 70 with a creatinine 0.7. COVID 19 testing was negative. Influenza screen was negative. Today's evaluation of 04/07/2022, the patient is still bringing up some greenish sputum. She was able to give a sample and the sputum cultures still pending. Meanwhile the blood culture is negative. The patient is feeling okay. She remains on bronchodilators patient remains on steroids. She remains on IV Rocephin. The plan is to let her go home today on a prednisone burst taper and a course of antibiotics and will also going to check her sputum samples on outpatient basis with her boiler out. Objective - Vital Signs Vital signs: Vital Signs Temp 97.9 F 04/07/22 08:00 Pulse 104 H 04/07/22 08:09 Resp 18 04/07/22 08:00 BP 163/85 04/07/22 08:00 Pulse Ox 98 04/07/22 08:00 FiO2 Intake & Output 04/06/22 04/07/22 04/07/22 18:59 06:59 18:59 Intake Total 250 Balance 250 Intake: Intake, IV Titration 250 Amount Azithromycin 500 mg In 250 Sodium Chloride 0.9% 250 ml @ 250 mls/hr IVPB DAILY [facility] Rx#:[id number] Other: Voiding Method Toilet # Voids 1 - Exam GENERAL EXAM: Alert, very pleasant 71-year-old female patient, on 3 L nasal cannula, comfortable in no apparent distress. HEAD: Normocephalic. EYES: Normal reaction of pupils, equal size. NOSE: Clear with pink turbinates. THROAT: No erythema or exudates. NECK: No masses, no JVD. CHEST: No chest wall deformity. LUNGS: Equal air entry with few crackles in the left lung. Diminished throughout. CVS: S1 and S2 normal with no audible murmur, regular rhythm. ABDOMEN: No hepatosplenomegaly, normal bowel sounds, no guarding or rigidity. SPINE: No scoliosis or deformity SKIN: No rashes CENTRAL NERVOUS SYSTEM: No focal deficits, tone is normal in all 4 extremities. EXTREMITIES: There is no peripheral edema. No clubbing, no cyanosis. Peripheral pulses are intact. - Labs CBC & Chem 7: 04/06/22 07:04/06/22 07:01 Labs: Abnormal Lab Results - Last 24 Hours (Table) 04/06/22 04/06/22 04/06/22 Range/Units 07:01 07:01 11:30 WBC 13.99 H (4.50-10.00) X 10*3/uL RBC 3.58 L (4.10-5.20) X 10*6/uL Hgb 9.2 L (12.0-15.0) g/dL Hct 32.1 L (37.2-46.3) % MCH 25.7 L (27.0-32.0) pg MCHC 28.7 L (32.0-37.0) g/dL RDW 14.7 H (11.5-14.5) % Plt Count 482 H (140-440) X 10*3/uL BUN/Creatinine Ratio 26.17 H (12.00-20.00) Ratio Glucose 136 H (70-110) mg/dL POC Glucose (mg/dL) 136 H (70-110) mg/dL Total Bilirubin <0.15 L (0.30-1.20) mg/dL Albumin 2.8 L (3.8-4.9) g/dL Globulin 3.4 H (1.6-3.3) g/dL Albumin/Globulin Ratio 0.83 L (1.60-3.17) g/dL 04/06/22 04/06/22 04/07/22 Range/Units 15:58 20:19 06:54 WBC (4.50-10.00) X 10*3/uL RBC (4.10-5.20) X 10*6/uL Hgb (12.0-15.0) g/dL Hct (37.2-46.3) % MCH (27.0-32.0) pg MCHC (32.0-37.0) g/dL RDW (11.5-14.5) % Plt Count (140-440) X 10*3/uL BUN/Creatinine Ratio (12.00-20.00) Ratio Glucose (70-110) mg/dL POC Glucose (mg/dL) 173 H 143 H 115 H (70-110) mg/dL Total Bilirubin (0.30-1.20) mg/dL Albumin (3.8-4.9) g/dL Globulin (1.6-3.3) g/dL Albumin/Globulin Ratio (1.60-3.17) g/dL Microbiology - Last 24 Hours (Table) 04/04/22 22:53 Blood Culture - Preliminary Blood No Growth after 48 hours 04/04/22 18:26 Blood Culture - Preliminary Blood No Growth after 48 hours Assessment and Plan Plan: acute COPD exacerbation without clear evidence of an underlying pneumonia. Chest x-ray findings are essentially chronic related to previous tuberculosis infection of the lung and the patient has volume loss in the right lung knowing that the patient has undergone a previous right lower lobe resection. Representation is typical of an acute COPD exacerbation, the patient is clinically improving and the patient is much improved compared to yesterday Severe COPD with an FEV1 of 27% of predicted Chronic hypoxic respiratory failure maintained on O2 at 3 L Previous history of TB back in 2000 and the patient undergone previous right lower lobe resection followed by antimicrobial treatment Hypothyroidism Fibromyalgia Acid reflux History of heavy smoking Plan Agree on the current treatment. Clinically improving and will continue same treatment for now We will be awaiting the sputum sample Patient can be discharged home on a prednisone burst taper, Levaquin 750 for the next 7 days, albuterol nebulized treatments 4 times a day, and she will be going back on Anoro once daily
[2022-04-07 11:35] LABS: Glucose,Whole Blood 80 mg/dL (70-110)
[2022-04-07] MEDS ORDERED: LEVOFLOXACIN 750 MG TAB PO ONE (14:00)
[2022-04-07 14:10] VITALS: BP 118/79; PULSE 107; TEMP 98.1
--- NOTE | 2022-04-12 21:23 | CDI ---
Documentation Clarification Form Date: From: Chris Paige Phone: Admit Date: 04/04/2022 06:09:00 PM Patient Name: Sandra Brown Visit Number: [id number] Discharge Date: 04/07/2022 02:27:00 PM ATTENTION: The Clinical Documentation Specialists (CDI) and [facility] Coding Staff appreciate your assistance in clarifying documentation. Please respond to the clarification below the line at the bottom and electronically sign. The CDI & [facility] Coding staff will review the response and follow-up if needed. Please note: Queries are made part of the Legal Health Record. If you have any questions, please contact the author of this message via ITS. Dr. Yrn Rodríguez Pneumonia is documented throughout progress notes which may lack sufficient clinical evidence/support in the medical record. Additional clarification is requested. History/Risk Factors: 04/06 PN documents Acute on chronic hypoxic respiratory failure combination of COPD exacerbation along with right sided pneumonia. Clinical Indicators: 04/07 PN Pulmonary documents Acute COPD exacerbation without clear evidence of underlying pneumonia Treatment: IV Rocephin and Azithromycin Please clarify if Pneumonia is a valid diagnosis? [ xx ] Yes,Pneumonia is present as evidence by (additional clinical support): [ ] No,Pneumonia is ruled out [ ] Other (please specify diagnosis) [ ] Unable to determine MTDD
== END 2022-04-07 14:27 | disposition home or self-care (01) | DRG 194 ==
LOC: EC 16:00 → 4SSUR 18:09
PROVIDERS: ADMIT Internal Medicine Geriatric Medicine; ATTEND Internal Medicine Geriatric Medicine
DX: J18.9 Pneumonia, unspecified organism (principal); J44.0 Chronic obstructive pulmonary disease with (acute) lower respiratory infection; J44.1 Chronic obstructive pulmonary disease with (acute) exacerbation; D86.9 Sarcoidosis, unspecified; E03.9 Hypothyroidism, unspecified; K21.9 Gastro-esophageal reflux disease without esophagitis; I25.10 Atherosclerotic heart disease of native coronary artery without angina pectoris; M79.7 Fibromyalgia; Z20.822 Contact with and (suspected) exposure to COVID-19; Z79.890 Hormone replacement therapy; Z79.899 Other long term (current) drug therapy; Z82.3 Family history of stroke; Z82.49 Family history of ischemic heart disease and other diseases of the circulatory system; Z82.5 Family history of asthma and other chronic lower respiratory diseases; Z83.3 Family history of diabetes mellitus; Z86.11 Personal history of tuberculosis; Z87.891 Personal history of nicotine dependence; Z90.2 Acquired absence of lung [part of]; Z99.81 Dependence on supplemental oxygen; Z88.6 Allergy status to analgesic agent; Z88.2 Allergy status to sulfonamides; Z88.5 Allergy status to narcotic agent; Z87.01 Personal history of pneumonia (recurrent); Z90.49 Acquired absence of other specified parts of digestive tract
CPT/HCPCS: 36415; 71046; 80053; 83605; 84484; 85025; 85027; 85610; 85730; 87040; 87502; 87635; 93005; 94640; 94760; 96365; 96366; 96372; 96375; 96376; 99285

== ENCOUNTER 2022-05-02 11:30 | Inpatient (IN) | payer MEDICARE ==
[~2022-05-02 11:30] MED LIST changes: +ALBUTEROL NEB (CONC) 2.5 MG/0.5 ML INHALATION ONE; +ATROPINE SULFATE 0.4 MG/ML 1 ML VIAL IM ONE; -AZITHROMYCIN 500 MG in SODIUM CHLORIDE 0.9% 250 ML IVPB SCH; +LIDOCAINE 1% (10MG/ML) FOR IV START INTRADERMA PRN; +LIDOCAINE 2% (PF) 20 MG/ML 5 ML VIAL INHALATION ONE; +LIDOCAINE VISCOUS 300 MG/15 ML CUP MUCOUS MEM ONE
[2022-05-02] MEDS ORDERED: LACTATED RINGERS 1,000 ML IV ONE (11:50)
[2022-05-02 12:05] LABS: Glucose,Whole Blood 104 mg/dL (70-110)
[2022-05-02] MEDS ORDERED: SUCCINYLCHOLINE CHLORIDE 200 MG/10 ML VIAL IV ONE ×2 (12:06→12:59)
[2022-05-02] MEDS ORDERED: LIDOCAINE 2% INJ 20 MG/ML (2 ML VIAL) ONE (12:06)
[2022-05-02] MEDS ORDERED: PROPOFOL 10 MG/ML 20 ML VIAL IV ONE ×3 (12:06→13:20)
[2022-05-02] MEDS ORDERED: fentaNYL (PF) 50 MCG/ML 2 ML AMP ONE (12:06)
[2022-05-02] MEDS ORDERED: PHENYLEPHRINE-0.9% NACL SYG 1,000 MCG/10 ML SYRINGE ONE (12:06)
[2022-05-02] MEDS ORDERED: ALBUTEROL NEBULIZED 2.5 MG/3 ML INHALATION ONE (12:48)
[2022-05-02] MEDS ORDERED: MIDAZOLAM 2 MG/2 ML VIAL IVP ONE (13:05)
--- NOTE | 2022-05-02 13:20 | PCN ---
PROCEDURE NOTE PULMONARY/CRITICAL CARE PROCEDURE NOTE: PROCEDURE: Bronchoscopy, airway examination, therapeutic lavage, BAL, endobronchial and transbronchial biopsies, right upper lobe and right lower lobe, brushes, right upper lobe, right lower lobe, BAL right upper lobe, right lower lobe. PREOPERATIVE DIAGNOSIS: History of pneumonia/chronic obstructive pulmonary disease and tuberculosis. POSTOPERATIVE DIAGNOSIS: History of pneumonia/chronic obstructive pulmonary disease and tuberculosis. There was informed consent and universal timeout. The procedure took place in [facility] room [facility]. WORM RAISER: Dr. Garcia. Dr. Arceo and CDL INSTRUCTOR provided general anesthesia. PROCEDURE DESCRIPTION: After the patient was adequately sedated and under the effects of anesthesia and intubated with an endotracheal tube, the bronchoscope was placed through the bronchoscope adapter, which was connected to the endotracheal tube. The bronchoscope was passed through the endotracheal tube down to the airways. There were thick secretions noted in the distal trachea that showed a saddling over the tracheal drake. They were suctioned. Next, we thoroughly evaluated the left lung, including the left upper lobe proper, the lingula and the left lower lobe. All segments were patent. Some secretions were noted on the left side. On the right side, there was significant erythema and hyperemia of the airways. There was no dominant mass or tumor, although the mucosa was somewhat irregular. There was some vascular engorgement. Thick secretions were noted throughout, primarily on the right side. They were purulent in color. Next the bronchoscope was placed in the right lower lobe. First we did brushes to the right lower lobe. Next we did endobronchial and transbronchial biopsies to the right upper lobe. Finally we did BAL in the right lower lobe. Next, we similarly evaluated the right upper lobe. First brushes were done in the right upper lobe. Then endobronchial biopsies and a few transbronchial biopsies were done in the right upper lobe. Finally BAL took place in the right upper lobe. There was some minimal bleeding. The patient tolerated the procedure well, was very stable throughout the entire procedure. The bronchoscope was withdrawn. The patient will be recovered by Anesthesia. There was no immediate complication. The samples will be sent to the laboratory for analysis. I will talk to the patient's daughters about the procedure. MMODL / IJN: [id number] / MTDD
[2022-05-02] MEDS: LACTATED RINGERS 1,000 ML IV SCH ×3 (13:30→14:23)
--- NOTE | 2022-05-02 13:42 | XR ---
EXAMINATION TYPE: XR chest 1V portable DATE OF EXAM: 05/02/2022 COMPARISON: 04/04/2020 HISTORY: ET tube placement TECHNIQUE: Single frontal view of the chest is obtained. FINDINGS: ET tube approximately 2.65 cm above drake. Bilateral infiltrate and pleural effusion. Rig ht apical pleural thickening stable. Calcification left axilla noted. No pneumothorax. Heart size nor mal. Atherosclerotic change aorta. IMPRESSION: 1. Stable bilateral infiltrate and pleural effusion. 2. ET tube 2.5 cm above drake.
[2022-05-02] MEDS ORDERED: IPRATROPIUM-ALBUTEROL 3 ML NEB INHALATION PRN (13:44)
[2022-05-02 14:00] LABS: Glucose,Whole Blood 120 mg/dL (70-110)
[2022-05-02] MEDS ORDERED: SODIUM CHLORIDE 0.9% 1,000 ML IV ONE (14:24)
[2022-05-02] MEDS: PANTOPRAZOLE 40 MG/10 ML VIAL IVP SCH (14:24)
[2022-05-02] MEDS: CHLORHEXIDINE GLUCONATE 15 ML CUP MUCOUS MEM SCH ×3 (14:24→20:09)
[2022-05-02 14:26] LABS: INR 1.4 (<1.2); Prothrombin Time 14.2 sec (9.0-12.0)
[2022-05-02 14:27] LABS: Anisocytosis Slight; Basophils # (A) 0.1 k/uL (0-0.2); Basophils % (A) 0 %; Eosinophils # (A) 0.1 k/uL (0-0.7); Eosinophils % (A) 1 %; HCT 26.3 % (34.0-46.0); Hypochromasia Marked; Lymphocytes # (A) 0.9 k/uL (1.0-4.8); Lymphocytes % (A) 6 %; MCH 25.5 pg (25.0-35.0); MCHC 29.2 g/dL (31.0-37.0); MCV 87.5 fL (80.0-100.0); Mean Platelet Volume 7.3; Monocytes # (A) 0.6 k/uL (0-1.0); Monocytes % (A) 4 %; Neutrophils % (A) 88 %; Platelet Count 384 k/uL (150-450); WBC 14.8 k/uL (3.8-10.6)
[2022-05-02 14:33] LABS: HGB 7.7 gm/dL (11.4-16.0)
[2022-05-02] MEDS ORDERED: NALOXONE 0.4 MG/ML 1 ML VIAL IV PRN (14:39)
[2022-05-02] MEDS: NOREPINEPHRINE 4 MG in SODIUM CHLORIDE 0.9% 250 ML IV SCH ×2 (14:57→23:15)
[2022-05-02 15:00] LABS: African American GFR (CKD) >90 (>60 ml/min/1.73 sqM); Albumin 2.4 g/dL (3.5-5.0); Anion Gap 7 mmol/L; Blood Urea Nitrogen 16 mg/dL (7-17); Carbon Dioxide 31 mmol/L (22-30); Chloride 101 mmol/L (98-107); Glucose 113 mg/dL (74-99); Non-African American GFR(CKD) >90 (>60 ml/min/1.73 sqM); Potassium 3.4 mmol/L (3.5-5.1); Sodium 139 mmol/L (137-145); Total Protein 5.6 g/dL (6.3-8.2)
[2022-05-02 15:01] LABS: Calcium 6.2 mg/dL (8.4-10.2)
[2022-05-02 15:03] LABS: ALT 14 U/L (4-34); AST 28 U/L (14-36); Alkaline Phosphatase 96 U/L (38-126); Total Bilirubin 0.5 mg/dL (0.2-1.3)
[2022-05-02 15:46] LABS: ABG Base Excess 4.9 mmol/L; ABG HCO3 30 mmol/L (21-25); ABG Oxygen Saturation 99.9 % (94-97); ABG PCO2 50 mmHg (35-45); ABG PH 7.39 (7.35-7.45); ABG PO2 182 mmHg (83-108); ABG TCO2 32 mmol/L (19-24); Allen Test Performed? Yes
[2022-05-02] MEDS: IPRATROPIUM-ALBUTEROL 3 ML NEB INHALATION SCH ×2 (16:05→20:58)
--- NOTE | 2022-05-02 16:12 | P.CNPUL ---
History of Present Illness Consult date: 05/02/22 Requesting physician: Yrn Rodríguez Reason for consult: dyspnea, other (Acute hypoxic respiratory failure) Chief complaint: Shortness of breath History of present illness: This is a 71-year-old female with history of severe COPD, patient has called stage IV COPD, FEV1 is in the range of 27%. Over the last few months, patient was hospitalized for acute exacerbation of COPD, and abnormal chest x-ray showing infiltrates in the right upper lobe and right lower lobe. Patient had follow-up with Dr. gavlan for her COPD and her persistently abnormal chest x-ray, patient underwent a bronchoscopy, BAL of the right upper lobe, endobronchial biopsies and transbronchial biopsies of the right upper lobe today. Her procedure went uneventful, however the patient was extubated and she was still in the recovery room. Shortly after the patient developed worsening shortness of breath, tachypnea, tachycardia, and she had to be reintubated and placed on mechanical ventilation post procedure. Patient was transferred to the ICU, and I was asked to see her on consultation. Reviewed the patient's chest x-ray post intubation. Reviewed her labs. ABG is pending. Discussed her condition with 2 daughters at bedside, left radial arterial line was established since the patient was hypotensive earlier, required fluid boluses and she required small dose of norepinephrine to maintain adequate blood pressure. She is presently on IV fluid at 100 mL per hour she is also on norepinephrine at 0.05 mcg/kg/m, and she received already a liter of fluid bolus earlier. Patient is resting well in bed, does not seem to be in any distress, she is on assist control rate of 18 tidal volume is 400 FiO2 50% and PEEP of 5. ABG showed a pO2 of 182 pCO2 of 50 pH of 7.39, this was on 50% FiO2 and I will cut it down to 35% CBC showed leukocytosis with WBC count of 14.8 hemoglobin is 7.7. Basic metabolic profile is basically unremarkable. Review of Systems ROS unobtainable: due to endotracheal tube Past Medical History Past Medical History: COPD, Fibromyalgia, GERD/Reflux, Pneumonia, Thyroid Disorder Additional Past Medical History / Comment(s): Chronic cough X2-3 months. Sarcoidosis. Hx TB in 2000 had right lower lobectomy and was treated with meds for 4 months. Fusch's disease, "needs corneal transplant". UTI's. Home 02-3 liters per nasal cannula 29/04. Uses wheelchair for long distances due to SOB. History of Any Multi-Drug Resistant Organisms: None Reported Past Surgical History: Breast Surgery, Section, Cholecystectomy, Orthopedic Surgery Additional Past Surgical History / Comment(s): Right lower lobectomy 2000, bilateral knee arthroscopies, Section X2, colonoscopy/polypectomy(benign), left breast biopsy-neg. Past Anesthesia/Blood Transfusion Reactions: No Reported Reaction Smoking Status: Former smoker - Past Family History Mother Family Medical History: COPD Father Family Medical History: Diabetes Mellitus, Eye Disorder Additional Family Medical History / Comment(s): Glaucoma. Sister(s) Family Medical History: Cancer Additional Family Medical History / Comment(s): Two sister's had cancer. Medications and Allergies Home Medications Medication Instructions Recorded Confirmed Type Omeprazole 20 mg PO QAM 08/28/16 04/30/22 History Levothyroxine Sodium [Synthroid] 88 mcg PO QAM 10/26/21 04/30/22 History Albuterol Sulfate [Albuterol 2 puff PO Q6H PRN 04/04/22 05/02/22 History Sulfate Hfa] Budesonide [Pulmicort] 0.5 mg INHALATION BID 04/30/22 04/30/22 History Trelegy Ellipta (Unknown Dose) 1 puff INHALATION QAM 04/30/22 04/30/22 History Allergies Allergy/AdvReac Type Severity Reaction Status Date / Time aspirin Allergy Dyspnea Verified 04/30/22 13:06 ibuprofen [From Motrin] Allergy Dyspnea Verified 04/30/22 13:06 Sulfa (Sulfonamide Allergy Dyspnea Verified 04/30/22 13:06 Antibiotics) hydrocodone [From Vicodin] AdvReac Confusion Verified 04/30/22 13:06 Physical Exam Vitals: Vital Signs Temp Pulse Pulse Pulse Resp BP BP 05/02/22 15:30 88 18 88/58 05/02/22 15:20 90 18 88/58 05/02/22 15:10 93 18 88/54 05/02/22 15:00 96 23 73/44 05/02/22 14:50 98 21 73/44 05/02/22 14:40 101 H 18 69/40 05/02/22 14:32 05/02/22 14:30 104 H 21 77/61 05/02/22 14:20 121 H 20 77/61 05/02/22 14:10 110 H 19 141/75 05/02/22 14:00 99.8 F H 122 H 27 H 114/69 05/02/22 13:58 33 H 114/69 05/02/22 13:40 118 H 18 118/71 05/02/22 13:25 113 H 18 84/51 05/02/22 13:12 05/02/22 13:10 115 H 16 115/60 05/02/22 13:00 05/02/22 11:55 20 05/02/22 11:50 97.2 F L 126 H 30 H 151/73 Pulse Ox FiO2 05/02/22 15:30 99 05/02/22 15:20 99 05/02/22 15:10 100 05/02/22 15:00 100 05/02/22 14:50 100 05/02/22 14:40 99 05/02/22 14:32 100 05/02/22 14:30 99 05/02/22 14:20 100 05/02/22 14:10 05/02/22 14:00 98 100 05/02/22 13:58 05/02/22 13:40 100 100 05/02/22 13:25 100 100 05/02/22 13:12 100 05/02/22 13:10 100 100 05/02/22 13:00 100 05/02/22 11:55 91 L 05/02/22 11:50 88 L Intake and Output 05/02/22 05/02/22 05/02/22 06:59 14:59 22:59 Intake Total 1606.322 25.832 Balance 1606.322 25.832 Intake: IV 1600 Intake, IV Titration 6.322 25.832 Amount propofoL 1,000 mg In 6.322 25.832 Empty Bag 1 bag @ 5 MCG/ KG/MIN 2.313 mls/hr IV . Q24H [facility] Rx#:[id number] Other: Voiding Method Indwelling Catheter Weight 77.111 kg 77.111 kg ABP, PAP, CO, CI - Last 8 Hours Arterial Blood Pressure 91/51 GENERAL EXAM: Revealed a 71-year-old female intubated, mechanically ventilated, sedated, she is presently on propofol at 70 mcg/kg/m. HEAD: Normocephalic. Endotracheal tube and orogastric tube are intact. EYES: Normal reaction of pupils, equal size. NOSE: Clear with pink turbinates. THROAT: Dry mucous membranes noted. NECK: No masses, no JVD. CHEST: No chest wall deformity. LUNGS: Equal air entry few crackles at the bases, diminished breath sounds throughout. CVS: Distant S1 and S2, no S3 gallop, no murmur ABDOMEN: Soft nontender no megaly no rebound no guarding. SKIN: No rashes CENTRAL NERVOUS SYSTEM: Cannot assess, patient is sedated, on propofol EXTREMITIES: No clubbing, no edema, no cyanosis. Psychiatric: Could not assess Results - Laboratory Findings CBC and BMP: 05/02/22 14:03 05/02/22 14:03 ABG ABG pH 7.39 (7.35-7.45) 05/02/22 15:43 ABG pCO2 50 mmHg (35-45) H 05/02/22 15:43 ABG pO2 182 mmHg (83-108) H 05/02/22 15:43 ABG O2 Saturation 99.9 % (94-97) H 05/02/22 15:43 PT/INR, D-dimer PT 14.2 sec (9.0-12.0) H 05/02/22 14:03 INR 1.4 (<1.2) H 05/02/22 14:03 Abnormal lab findings: Abnormal Labs 05/02/22 05/02/22 05/02/22 13:58 14:03 14:03 WBC 14.8 H RBC 3.00 L Hgb 7.7 L D Hct 26.3 L MCHC 29.2 L RDW 17.0 H Neutrophils # 13.0 H Lymphocytes # 0.9 L PT 14.2 H INR 1.4 H ABG pCO2 ABG pO2 ABG HCO3 ABG Total CO2 ABG O2 Saturation Potassium Carbon Dioxide Glucose POC Glucose (mg/dL) 120 H Calcium Total Protein Albumin 05/02/22 05/02/22 14:03 15:43 WBC RBC Hgb Hct MCHC RDW Neutrophils # Lymphocytes # PT INR ABG pCO2 50 H ABG pO2 182 H ABG HCO3 30 H ABG Total CO2 32 H ABG O2 Saturation 99.9 H Potassium 3.4 L Carbon Dioxide 31 H Glucose 113 H POC Glucose (mg/dL) Calcium 6.2 L* Total Protein 5.6 L Albumin 2.4 L - Diagnostic Findings Chest x-ray: image reviewed (Chest x-ray showed chronic bilateral infiltrates and possibly a small sided pleural effusion endotracheal tube was 2.5 cm above the drake) Assessment and Plan Assessment: Impression: Acute on chronic hypoxic and hypercapnic respiratory failure secondary to acute exacerbation of COPD, exacerbated by bronchoscopy, endobronchial biopsies, transbronchial biopsies and BAL. Expected considering the severity of her COPD Chronic bilateral infiltrates, patient is status post BAL of the right upper lobe and biopsies which are pending. History of tuberculosis and previous right lower lobectomy Chronic hypoxic respiratory failure, normally on 3 L nasal cannula Severe COPD with FEV1 of 27% History of hypothyroidism. History of fibromyalgia. History of GERD without esophagitis. Tobacco dependence syndrome. History of right lower lobe resection. Previous history of TB in 2000 requiring a right lower lobe resection and treatment. Hypotension most likely secondary to hypovolemia, definitely doubt sepsis and septic shock. Patient improved with fluid boluses. Recommendation: Continue ventilatory support. Continue bronchodilators and steroids Add Levaquin 500 mg IV piggyback daily. However antibiotics will change depending on the final culture from BAL which is pending. Continue GI and DVT prophylaxis. Consider trial of weaning and extubation possibly in the next 24 hours this is to be addressed tomorrow. Discontinue norepinephrine and continue IV fluids Address nutritional support in the next 24 hours. Discussed status with the daughter is at bedside. Adjust ventilator settings accordingly based on the ABG noted above. Prognosis is guarded. We'll continue to follow. Critical care time is over 55 minutes not including the time spent on procedures. Time with Patient: Greater than 30
[2022-05-02] MEDS ORDERED: Potassium Replacement Protocol 1 EACH MISC MISCELLANE PRN (16:27)
[2022-05-02] MEDS: LEVOFLOXACIN 500MG-D5W PMX 500 MG in DEXTROSE/WATER 1 100ML.BAG IVPB SCH (16:29)
[2022-05-02] MEDS: POTASSIUM BICARBONATE/CIT AC 20 MEQ TABLET.EFF NG-TUBE SCH ×2 (17:09→17:56)
--- NOTE | 2022-05-02 17:41 | OP ---
OPERATIVE REPORT OPERATIVE REPORT: Placement of left radial arterial line. PREOPERATIVE DIAGNOSIS: Acute hypoxic respiratory failure secondary to chronic obstructive pulmonary disease exacerbation, following bronchoscopy, BAL and biopsies. POSTOPERATIVE DIAGNOSIS: Acute hypoxic respiratory failure secondary to chronic obstructive pulmonary disease exacerbation, following bronchoscopy, BAL and biopsies. ANESTHESIA USED: None deployed. PROCEDURE DESCRIPTION: Patient was placed in supine position. The left wrist was prepared in a sterile fashion and drapes were applied. The left radial artery was palpated, cannulated easily, and a guidewire was placed. A Cook's catheter was inserted over the guidewire, and the guidewire was removed. Good blood flow and good waveform were noted. No complications. Line was secured using 3.0 silk sutures. MMODL / IJN: [id number] /
[2022-05-02] MEDS: methylPREDNISolone SOD SUCCI 125 MG/2 ML VIAL IV SCH (17:47)
[2022-05-02 17:52] LABS: Glucose,Whole Blood 152 mg/dL (70-110)
[2022-05-02 20:04] LABS: Glucose,Whole Blood 155 mg/dL (70-110)
[2022-05-02] MEDS: SODIUM CHLORIDE 0.9% 1,000 ML IV SCH (20:09)
[2022-05-02] MEDS: BUDESONIDE 0.5 MG/2 ML NEBU INHALATION SCH (20:58)
[2022-05-02 21:57] LABS: African American GFR (CKD) >90 (>60 ml/min/1.73 sqM); Anion Gap 9 mmol/L; Blood Urea Nitrogen 11 mg/dL (7-17); Carbon Dioxide 29 mmol/L (22-30); Chloride 104 mmol/L (98-107); Glucose 153 mg/dL (74-99); Non-African American GFR(CKD) >90 (>60 ml/min/1.73 sqM); Potassium 3.8 mmol/L (3.5-5.1); Sodium 142 mmol/L (137-145)
[2022-05-02 22:05] LABS: Magnesium 0.9 mg/dL (1.6-2.3)
[2022-05-02] MEDS ORDERED: CALCIUM GLUCONATE IN NACL 1 GM in SALINE 1 100ML.BAG IVPB ONE (22:16)
[2022-05-02] MEDS: MAGNESIUM SULFATE-D5W PMX 1 GM in DEXTROSE/WATER 1 100ML.BAG IVPB SCH ×2 (22:26→23:36)
[2022-05-02 23:39] LABS: Appearance,BF Blood Tinged
[2022-05-02 23:48] LABS: Appearance,BF Cloudy
[2022-05-03] MEDS: methylPREDNISolone SOD SUCCI 125 MG/2 ML VIAL IV SCH ×4 (00:11→18:03)
[2022-05-03] MEDS: IPRATROPIUM-ALBUTEROL 3 ML NEB INHALATION SCH ×7 (00:12→23:14)
[2022-05-03 00:40] LABS: Glucose,Whole Blood 179 mg/dL (70-110)
[2022-05-03 01:27] LABS: African American GFR (CKD) >90 (>60 ml/min/1.73 sqM); Anion Gap 6 mmol/L; Blood Urea Nitrogen 12 mg/dL (7-17); Carbon Dioxide 29 mmol/L (22-30); Chloride 105 mmol/L (98-107); Glucose 173 mg/dL (74-99); Non-African American GFR(CKD) >90 (>60 ml/min/1.73 sqM); Potassium 3.3 mmol/L (3.5-5.1); Sodium 140 mmol/L (137-145)
[2022-05-03 01:32] LABS: Calcium 6.2 mg/dL (8.4-10.2)
[2022-05-03] MEDS: POTASSIUM BICARBONATE/CIT AC 20 MEQ TABLET.EFF NG-TUBE SCH ×2 (01:54→02:53)
[2022-05-03 04:59] LABS: Anisocytosis Slight; Basophils % (A) 0 %; Eosinophils % (A) 0 %; HCT 27.1 % (34.0-46.0); HGB 7.7 gm/dL (11.4-16.0); Hypochromasia Marked; Lymphocytes # (A) 0.5 k/uL (1.0-4.8); Lymphocytes % (A) 5 %; MCH 25.1 pg (25.0-35.0); MCHC 28.4 g/dL (31.0-37.0); MCV 88.4 fL (80.0-100.0); Mean Platelet Volume 7.5; Monocytes # (A) 0.2 k/uL (0-1.0); Monocytes % (A) 1 %; Neutrophils # (A) 9.6 k/uL (1.3-7.7); Neutrophils % (A) 93 %; Platelet Count 364 k/uL (150-450); RBC 3.07 m/uL (3.80-5.40); RDW 17.3 % (11.5-15.5); WBC 10.4 k/uL (3.8-10.6)
[2022-05-03 05:05] LABS: INR 1.3 (<1.2); Prothrombin Time 13.3 sec (9.0-12.0)
[2022-05-03 05:19] LABS: ALT 12 U/L (4-34); African American GFR (CKD) >90 (>60 ml/min/1.73 sqM); Anion Gap 5 mmol/L; Blood Urea Nitrogen 13 mg/dL (7-17); Carbon Dioxide 30 mmol/L (22-30); Chloride 106 mmol/L (98-107); Glucose 137 mg/dL (74-99); Non-African American GFR(CKD) >90 (>60 ml/min/1.73 sqM); Sodium 141 mmol/L (137-145); Total Bilirubin 0.9 mg/dL (0.2-1.3)
[2022-05-03 05:22] LABS: Calcium 6.2 mg/dL (8.4-10.2)
[2022-05-03 05:23] LABS: AST 38 U/L (14-36); Albumin 2.5 g/dL (3.5-5.0); Alkaline Phosphatase 84 U/L (38-126)
[2022-05-03] MEDS ORDERED: CALCIUM GLUCONATE IN NACL 1 GM in SALINE 1 100ML.BAG IVPB ONE (05:29)
[2022-05-03] MEDS: LACTATED RINGERS 1,000 ML IV SCH ×2 (06:04→07:06)
[2022-05-03 06:12] LABS: ABG Base Excess 6.6 mmol/L; ABG HCO3 31 mmol/L (21-25); ABG PCO2 48 mmHg (35-45); ABG PH 7.42 (7.35-7.45); ABG PO2 96 mmHg (83-108); ABG TCO2 33 mmol/L (19-24); Allen Test Performed? Yes
[2022-05-03 06:26] LABS: Glucose,Whole Blood 141 mg/dL (70-110)
[2022-05-03] MEDS ORDERED: Magnesium Replacement Protocol 1 EACH MISC MISCELLANE PRN (07:04)
--- NOTE | 2022-05-03 07:37 | XR ---
EXAMINATION TYPE: XR chest 1V portable DATE OF EXAM: 05/03/2022 COMPARISON: 05/02/2022 INDICATION: Tube placement TECHNIQUE: Single frontal view of the chest is obtained. FINDINGS: The heart size is normal. The pulmonary vasculature is normal. There is increasing opacification within the residual right lung. There is shift of the mediastinum t o the right. Endotracheal tube tip remains above the drake. Nasogastric tube is in place tip in the abdomen. IMPRESSION: 1. Worsening right lung infiltrate. 2. Placement of a nasogastric tube with the tip in the abdomen.
[2022-05-03] MEDS: BUDESONIDE 0.5 MG/2 ML NEBU INHALATION SCH ×2 (07:58→19:14)
[2022-05-03] MEDS: LEVOTHYROXINE 88 MCG TAB PO SCH (08:39)
[2022-05-03] MEDS: CHLORHEXIDINE GLUCONATE 15 ML CUP MUCOUS MEM SCH ×2 (08:39)
[2022-05-03] MEDS: ENOXAPARIN 40 MG/0.4 ML SYRINGE SQ SCH (08:39)
[2022-05-03] MEDS: MAGNESIUM SULFATE-D5W PMX 1 GM in DEXTROSE/WATER 1 100ML.BAG IVPB SCH ×2 (08:39→11:45)
[2022-05-03] MEDS: PANTOPRAZOLE 40 MG/10 ML VIAL IVP SCH (08:39)
[2022-05-03] MEDS ORDERED: FUROSEMIDE 10 MG/ML 4 ML VIAL IV STA (09:03)
--- NOTE | 2022-05-03 10:05 | P.HPIM ---
History of Present Illness This is a pleasant 71 his FEMALE with past medical history of COPD, Fibromyalgia, GERD/Reflux, Pneumonia, hypothyroidism, sarcoidosis, chronic cough, Fusch's disease,Uses wheelchair for long distances due to SOB. Patient was followed up with airport electrician Dr. Garcia for advanced COPD exacerbation, also her chest x-ray showing right-sided infiltrate involving both upper and lower zones of the lung. patient underwent bronchoscopy and therapeutic liver edge, bronchoalveolar lavage and endotracheal and transbronchial biopsy of the right upper lobe and right lower lobe. And sample was sent to the lab. Because of her advanced stage COPD she is expected to be intubated and being in the hospital for a few days. Additional Past Medical History / Comment(s): Chronic cough X2-3 months. Sarcoidosis. Hx TB in 2000 had right lower lobectomy and was treated with meds for 4 months. Fusch's disease, "needs corneal transplant". UTI's. Home 02-3 liters per nasal cannula 24/7. History of Any Multi-Drug Resistant Organisms: None Reported Past Surgical History: Breast Surgery, Section, Cholecystectomy, Orthopedic Surgery Additional Past Surgical History / Comment(s): Right lower lobectomy 2000, bilateral knee arthroscopies, Section X2, colonoscopy/polypectomy(benign), left breast biopsy-neg. Past Anesthesia/Blood Transfusion Reactions: No Reported Reaction Smoking Status: Former smoker Review of Systems ROS unobtainable: due to endotracheal tube Past Medical History Past Medical History: COPD, Fibromyalgia, GERD/Reflux, Pneumonia, Thyroid Disorder Additional Past Medical History / Comment(s): Chronic cough X2-3 months. Sarcoidosis. Hx TB in 2000 had right lower lobectomy and was treated with meds for 4 months. Fusch's disease, "needs corneal transplant". UTI's. Home 02-3 liters per nasal cannula 24/7. Uses wheelchair for long distances due to SOB. History of Any Multi-Drug Resistant Organisms: None Reported Past Surgical History: Breast Surgery, Section, Cholecystectomy, Ortho pedic Surgery Additional Past Surgical History / Comment(s): Right lower lobectomy 2000, bilateral knee arthroscopies, Section X2, colonoscopy/polypectomy(benign), left breast biopsy-neg. Past Anesthesia/Blood Transfusion Reactions: No Reported Reaction Smoking Status: Former smoker - Past Family History Mother Family Medical History: COPD Father Family Medical History: Diabetes Mellitus, Eye Disorder Additional Family Medical History / Comment(s): Glaucoma. Sister(s) Family Medical History: Cancer Additional Family Medical History / Comment(s): Two sister's had cancer. Medications and Allergies Home Medications Medication Instructions Recorded Confirmed Type Omeprazole 20 mg PO QAM 08/28/16 04/30/22 History Levothyroxine Sodium [Synthroid] 88 mcg PO QAM 10/26/21 04/30/22 History Albuterol Sulfate [Albuterol 2 puff PO Q6H PRN 04/04/22 05/02/22 History Sulfate Hfa] Budesonide [Pulmicort] 0.5 mg INHALATION BID 04/30/22 04/30/22 History Trelegy Ellipta (Unknown Dose) 1 puff INHALATION QAM 04/30/22 04/30/22 History Allergies Allergy/AdvReac Type Severity Reaction Status Date / Time aspirin Allergy Dyspnea Verified 04/30/22 13:06 ibuprofen [From Motrin] Allergy Dyspnea Verified 04/30/22 13:06 Sulfa (Sulfonamide Allergy Dyspnea Verified 04/30/22 13:06 Antibiotics) hydrocodone [From Vicodin] AdvReac Confusion Verified 04/30/22 13:06 Physical Exam Vitals: Vital Signs Temp Pulse Pulse Pulse Resp BP BP 05/03/22 09:09 05/03/22 09:00 96 7 L 93/53 05/03/22 08:45 87 18 84/53 05/03/22 08:30 89 18 96/55 05/03/22 08:15 83 9 L 155/79 05/03/22 08:05 75 05/03/22 08:00 97.9 F 75 16 126/74 05/03/22 07:58 05/03/22 07:45 76 21 125/73 05/03/22 07:30 76 15 129/75 05/03/22 07:15 77 20 129/72 05/03/22 07:00 77 22 125/65 05/03/22 06:45 78 20 124/70 05/03/22 06:30 75 22 109/65 05/03/22 06:15 75 22 108/67 05/03/22 06:00 77 20 113/65 05/03/22 05:45 77 19 110/59 05/03/22 05:30 78 19 112/63 07/28/22 05:15 79 19 110/60 05/03/22 05:00 80 11 L 135/82 05/03/22 04:45 81 9 L 115/69 05/03/22 04:30 82 25 H 05/03/22 04:15 82 24 05/03/22 04:04 05/03/22 04:00 98.2 F 79 19 05/03/22 03:56 79 05/03/22 03:45 73 18 05/03/22 03:39 05/03/22 03:30 75 19 05/03/22 03:15 75 23 05/03/22 03:00 75 23 101/61 05/03/22 02:45 108 H 21 05/03/22 02:30 77 20 05/03/22 02:15 76 23 106/65 05/03/22 02:00 76 21 05/03/22 01:45 75 18 05/03/22 01:30 76 19 05/03/22 01:15 77 18 05/03/22 01:00 97.7 F 77 20 89/58 05/03/22 00:45 77 20 05/03/22 00:30 75 18 103/67 05/03/22 00:26 73 05/03/22 00:18 75 05/03/22 00:15 74 14 05/03/22 00:11 05/03/22 00:00 95.1 F L 72 18 103/67 05/02/22 23:46 05/02/22 23:45 75 18 05/02/22 23:30 74 21 05/02/22 23:15 75 21 05/02/22 23:00 76 19 05/02/22 22:45 78 21 05/02/22 22:30 79 19 05/02/22 22:15 80 23 05/02/22 22:00 80 19 05/02/22 21:45 82 21 05/02/22 21:30 82 18 05/02/22 21:18 79 05/02/22 21:15 78 18 05/02/22 21:08 78 05/02/22 21:00 78 20 05/02/22 20:58 05/02/22 20:45 79 20 128/80 05/02/22 20:30 79 20 05/02/22 20:15 80 19 05/02/22 20:00 98.1 F 81 21 05/02/22 19:45 84 20 05/02/22 19:30 81 18 05/02/22 19:15 84 19 05/02/22 19:00 84 19 05/02/22 18:45 83 21 05/02/22 18:30 84 19 05/02/22 18:15 86 18 05/02/22 18:00 87 20 05/02/22 17:45 88 18 05/02/22 17:30 88 18 05/02/22 17:15 88 18 05/02/22 17:00 89 18 88/58 05/02/22 16:45 87 18 05/02/22 16:35 86 05/02/22 16:30 85 18 05/02/22 16:19 86 05/02/22 16:16 05/02/22 16:15 87 18 05/02/22 16:00 87 18 05/02/22 15:45 87 18 05/02/22 15:30 88 18 88/58 05/02/22 15:20 90 18 88/58 05/02/22 15:10 93 18 88/54 05/02/22 15:00 96 23 73/44 05/02/22 14:50 98 21 73/44 05/02/22 14:40 101 H 18 69/40 05/02/22 14:32 05/02/22 14:30 104 H 21 77/61 05/02/22 14:20 121 H 20 77/61 05/02/22 14:10 110 H 19 141/75 05/02/22 14:00 99.8 F H 122 H 27 H 114/69 05/02/22 13:58 33 H 114/69 05/02/22 13:40 118 H 18 118/71 05/02/22 13:25 113 H 18 84/51 05/02/22 13:10 115 H 16 115/60 05/02/22 13:00 05/02/22 11:55 20 05/02/22 11:50 97.2 F L 126 H 30 H 151/73 Pulse Ox FiO2 05/03/22 09:09 40 05/03/22 09:00 99 05/03/22 08:45 99 05/03/22 08:30 99 05/03/22 08:15 100 07/28/22 08:05 05/03/22 08:00 98 05/03/22 07:58 40 05/03/22 07:45 98 05/03/22 07:30 98 05/03/22 07:15 98 05/03/22 07:00 98 40 05/03/22 06:45 98 05/03/22 06:30 98 40 05/03/22 06:15 98 05/03/22 06:00 97 40 05/03/22 05:45 98 40 05/03/22 05:30 98 40 05/03/22 05:15 97 40 05/03/22 05:00 97 40 05/03/22 04:45 98 05/03/22 04:30 97 40 05/03/22 04:15 97 05/03/22 04:04 40 05/03/22 04:00 96 40 05/03/22 03:56 05/03/22 03:45 98 05/03/22 03:39 40 05/03/22 03:30 98 40 05/03/22 03:15 98 05/03/22 03:00 98 40 05/03/22 02:45 98 05/03/22 02:30 98 40 05/03/22 02:15 98 05/03/22 02:00 98 40 05/03/22 01:45 98 05/03/22 01:30 97 40 05/03/22 01:15 97 05/03/22 01:00 97 40 05/03/22 00:45 97 05/03/22 00:30 98 40 05/03/22 00:26 05/03/22 00:18 05/03/22 00:15 98 05/03/22 00:11 40 05/03/22 00:00 98 40 05/02/22 23:46 40 05/02/22 23:45 99 05/02/22 23:30 97 40 05/02/22 23:15 98 05/02/22 23:00 98 40 05/02/22 22:45 98 05/02/22 22:30 98 40 05/02/22 22:15 98 05/02/22 22:00 98 40 05/02/22 21:45 98 40 05/02/22 21:30 97 0 05/02/22 21:18 05/02/22 21:15 99 05/02/22 21:08 05/02/22 21:00 99 505 05/02/22 20:58 40 05/02/22 20:45 99 05/02/22 20:30 99 50 05/02/22 20:15 99 05/02/22 20:00 99 50 05/02/22 19:45 99 05/02/22 19:30 99 50 05/02/22 19:15 99 05/02/22 19:00 99 50 05/02/22 18:45 99 05/02/22 18:30 99 50 05/02/22 18:15 99 05/02/22 18:00 99 50 05/02/22 17:45 98 05/02/22 17:30 98 50 05/02/22 17:15 99 05/02/22 17:00 98 50 05/02/22 16:45 99 05/02/22 16:35 05/02/22 16:30 99 05/02/22 16:19 05/02/22 16:16 50 05/02/22 16:15 99 05/02/22 16:00 98 50 05/02/22 15:45 99 50 05/02/22 15:30 99 05/02/22 15:20 99 05/02/22 15:10 100 05/02/22 15:00 100 05/02/22 14:50 100 05/02/22 14:40 99 05/02/22 14:32 100 05/02/22 14:30 99 05/02/22 14:20 100 05/02/22 14:10 05/02/22 14:00 98 100 05/02/22 13:58 05/02/22 13:40 100 100 05/02/22 13:25 100 100 05/02/22 13:10 100 100 05/02/22 13:00 100 05/02/22 11:55 91 L 05/02/22 11:50 88 L Intake and Output 05/02/22 05/03/22 05/03/22 22:59 06:59 14:59 Intake Total 800.223 994.387 443.572 Output Total 920 405 80 Balance -119.777 589.387 363.572 Intake: IV 300 525 225 Sodium Chloride 0.9% 1, 300 525 225 000 ml @ 75 mls/hr IV . [id number] [facility] Rx#:[id number] Intake, IV Titration 440.223 349.387 218.572 Amount Magnesium Sulfate-D5w Pmx 100 1 gm In Dextrose/Water 1 100ml.bag @ 100 mls/hr IVPB Q1H [facility] Rx#: [id number] Norepinephrine 4 mg In 254.000 191.697 34.522 Sodium Chloride 0.9% 250 ml @ 0.05 MCG/KG/MIN 14. 69 mls/hr IV .[id number] [facility] Rx#:[id number] propofoL 1,000 mg In 186.223 157.690 84.050 Empty Bag 1 bag @ 5 MCG/ KG/MIN 2.313 mls/hr IV . Q24H [facility] Rx#:[id number] Other 60 120 Output: Urine 920 405 80 Other: Voiding Method Indwelling Catheter Indwelling Catheter Weight 77.111 kg 72.4 kg ABP, PAP, CO, CI - Last 8 Hours Arterial Blood Pressure 101/50 Arterial Blood Pressure 96/48 Arterial Blood Pressure 91/46 Arterial Blood Pressure 98/49 Arterial Blood Pressure 100/50 Arterial Blood Pressure 99/49 Arterial Blood Pressure 103/51 Arterial Blood Pressure 89/53 Arterial Blood Pressure 95/49 Arterial Blood Pressure 96/49 Arterial Blood Pressure 94/51 -GENERAL: The patient is sedated and intubated HEENT: Pupils are round and equally reacting to light. EOMI. No scleral icterus. No conjunctival pallor. Normocephalic, atraumatic. No pharyngeal erythema. No thyromegaly. CARDIOVASCULAR: S1 and S2 present. No murmurs, rubs, or gallops. PULMONARY: Chest is clear to auscultation, no wheezing or crackles. ABDOMEN: Soft, nontender, nondistended, normoactive bowel sounds. No palpable organomegaly. MUSCULOSKELETAL: No joint swelling or deformity. EXTREMITIES: No cyanosis, clubbing, or pedal edema. NEUROLOGICAL: Gross neurological examination did not reveal any focal deficits. SKIN: No rashes. no petechiae. Results CBC & Chem 7: 05/03/22 04:40 05/03/22 04:40 Labs: Abnormal Lab Results - Last 24 Hours (Table) 05/02/22 05/02/22 05/02/22 Range/Units 13:58 14:03 14:03 WBC 14.8 H (3.8-10.6) k/uL RBC 3.00 L (3.80-5.40) m/uL Hgb 7.7 L D (11.4-16.0) gm/dL Hct 26.3 L (34.0-46.0) % MCHC 29.2 L (31.0-37.0) g/dL RDW 17.0 H (11.5-15.5) % Neutrophils # 13.0 H (1.3-7.7) k/uL Lymphocytes # 0.9 L (1.0-4.8) k/uL PT 14.2 H (9.0-12.0) sec INR 1.4 H (<1.2) ABG pCO2 (35-45) mmHg ABG pO2 (83-108) mmHg ABG HCO3 (21-25) mmol/L ABG Total CO2 (19-24) mmol/L ABG O2 Saturation (94-97) % Potassium (3.5-5.1) mmol/L Carbon Dioxide (22-30) mmol/L Creatinine (0.52-1.04) mg/dL Glucose (74-99) mg/dL POC Glucose (mg/dL) 120 H (70-110) mg/dL Calcium (8.4-10.2) mg/dL Magnesium (1.6-2.3) mg/dL AST (14-36) U/L Total Protein (6.3-8.2) g/dL Albumin (3.5-5.0) g/dL 05/02/22 05/02/22 05/02/22 Range/Units 14:03 15:43 17:51 WBC (3.8-10.6) k/uL RBC (3.80-5.40) m/uL Hgb (11.4-16.0) gm/dL Hct (34.0-46.0) % MCHC (31.0-37.0) g/dL RDW (11.5-15.5) % Neutrophils # (1.3-7.7) k/uL Lymphocytes # (1.0-4.8) k/uL PT (9.0-12.0) sec INR (<1.2) ABG pCO2 50 H (35-45) mmHg ABG pO2 182 H (83-108) mmHg ABG HCO3 30 H (21-25) mmol/L ABG Total CO2 32 H (19-24) mmol/L ABG O2 Saturation 99.9 H (94-97) % Potassium 3.4 L (3.5-5.1) mmol/L Carbon Dioxide 31 H (22-30) mmol/L Creatinine (0.52-1.04) mg/dL Glucose 113 H (74-99) mg/dL POC Glucose (mg/dL) 152 H (70-110) mg/dL Calcium 6.2 L* (8.4-10.2) mg/dL Magnesium (1.6-2.3) mg/dL AST (14-36) U/L Total Protein 5.6 L (6.3-8.2) g/dL Albumin 2.4 L (3.5-5.0) g/dL 05/02/22 05/02/22 05/03/22 Range/Units 20:03 21:24 00:38 WBC (3.8-10.6) k/uL RBC (3.80-5.40) m/uL Hgb (11.4-16.0) gm/dL Hct (34.0-46.0) % MCHC (31.0-37.0) g/dL RDW (11.5-15.5) % Neutrophils # (1.3-7.7) k/uL Lymphocytes # (1.0-4.8) k/uL PT (9.0-12.0) sec INR (<1.2) ABG pCO2 (35-45) mmHg ABG pO2 (83-108) mmHg ABG HCO3 (21-25) mmol/L ABG Total CO2 (19-24) mmol/L ABG O2 Saturation (94-97) % Potassium (3.5-5.1) mmol/L Carbon Dioxide (22-30) mmol/L Creatinine (0.52-1.04) mg/dL Glucose 153 H (74-99) mg/dL POC Glucose (mg/dL) 155 H 179 H (70-110) mg/dL Calcium 6.0 L* (8.4-10.2) mg/dL Magnesium 0.9 L* (1.6-2.3) mg/dL AST (14-36) U/L Total Protein (6.3-8.2) g/dL Albumin (3.5-5.0) g/dL 05/03/22 05/03/22 05/03/22 Range/Units 00:38 04:40 04:40 WBC (3.8-10.6) k/uL RBC 3.07 L (3.80-5.40) m/uL Hgb 7.7 L (11.4-16.0) gm/dL Hct 27.1 L (34.0-46.0) % MCHC 28.4 L (31.0-37.0) g/dL RDW 17.3 H (11.5-15.5) % Neutrophils # 9.6 H (1.3-7.7) k/uL Lymphocytes # 0.5 L (1.0-4.8) k/uL PT 13.3 H (9.0-12.0) sec INR 1.3 H (<1.2) ABG pCO2 (35-45) mmHg ABG pO2 (83-108) mmHg ABG HCO3 (21-25) mmol/L ABG Total CO2 (19-24) mmol/L ABG O2 Saturation (94-97) % Potassium 3.3 L (3.5-5.1) mmol/L Carbon Dioxide (22-30) mmol/L Creatinine 0.46 L (0.52-1.04) mg/dL Glucose 173 H (74-99) mg/dL POC Glucose (mg/dL) (70-110) mg/dL Calcium 6.2 L* (8.4-10.2) mg/dL Magnesium (1.6-2.3) mg/dL AST (14-36) U/L Total Protein (6.3-8.2) g/dL Albumin (3.5-5.0) g/dL 05/03/22 05/03/22 05/03/22 Range/Units 04:40 06:06 06:24 WBC (3.8-10.6) k/uL RBC (3.80-5.40) m/uL Hgb (11.4-16.0) gm/dL Hct (34.0-46.0) % MCHC (31.0-37.0) g/dL RDW (11.5-15.5) % Neutrophils # (1.3-7.7) k/uL Lymphocytes # (1.0-4.8) k/uL PT (9.0-12.0) sec INR (<1.2) ABG pCO2 48 H (35-45) mmHg ABG pO2 (83-108) mmHg ABG HCO3 31 H (21-25) mmol/L ABG Total CO2 33 H (19-24) mmol/L ABG O2 Saturation 98.0 H (94-97) % Potassium (3.5-5.1) mmol/L Carbon Dioxide (22-30) mmol/L Creatinine 0.41 L (0.52-1.04) mg/dL Glucose 137 H (74-99) mg/dL POC Glucose (mg/dL) 141 H (70-110) mg/dL Calcium 6.2 L* (8.4-10.2) mg/dL Magnesium (1.6-2.3) mg/dL AST 38 H (14-36) U/L Total Protein 6.0 L (6.3-8.2) g/dL Albumin 2.5 L (3.5-5.0) g/dL Microbiology - Last 24 Hours (Table) 05/02/22 12:00 Gram Stain - Preliminary Bronchial Washings - Right Bronchial Washings Culture - Preliminary 05/02/22 12:01 Gram Stain - Preliminary Bronchial Washings - Right Bronchial Washings Culture - Preliminary 05/02/22 12:01 Acid Fast Bacilli Culture - Preliminary Bronchial Washings - Right 05/02/22 12:00 Fungal Culture - Preliminary Bronchial Washings - Right 05/02/22 12:01 Fungal Culture - Preliminary Bronchial Washings - Right 05/02/22 12:00 Acid Fast Bacilli Culture - Preliminary Bronchial Washings - Right Assessment and Plan Assessment: Right pulmonary infiltrate, status post bronchoscopy and bronchoalveolar lavage on 05/02, followed by intubation Acute advanced COPD exacerbation Acute hypoxic respiratory failure history of pulmonary tuberculosis History of GERD Fibromyalgia Hypothyroidism History of sarcoidosis A chronic cough Plan: This is a pleasant 71 years old femaleUnderwent bronchoscopy and BAL followed by intubation Continue with intubation and mechanical ventilation with pulmonary/critical care team followed closely. Patient is expected to be extubated soon. She is underg oing sedation holiday per pulmonary team Continue with Levaquin Continue with Solu-Medrol and breathing treatment. Continue with gentle hydration Labs and medication were reviewed.. Continue same treatment. Continue with symptomatic treatment. Resume home medication. Monitor lytes and vitals. DVT and GI prophylaxis. Further recommendationsas per clinical course of the patient GI Prophylaxis: ppi Prognosis is guarded
[2022-05-03 11:27] LABS: Glucose,Whole Blood 144 mg/dL (70-110)
--- NOTE | 2022-05-03 11:42 | P.PN ---
Subjective Progress Note Date: 05/03/22 Principal diagnosis: Acute hypoxic respiratory failure This is a 71-year-old female with history of severe COPD, patient has called stage IV COPD, FEV1 is in the range of 27%. Over the last few months, patient was hospitalized for acute exacerbation of COPD, and abnormal chest x-ray showing infiltrates in the right upper lobe and right lower lobe. Patient had follow-up with Dr. galvan for her COPD and her persistently abnormal chest x-ray, patient underwent a bronchoscopy, BAL of the right upper lobe, endobronchial biopsies and transbronchial biopsies of the right upper lobe today. Her procedure went uneventful, however the patient was extubated and she was still in the recovery room. Shortly after the patient developed worsening shortness of breath, tachypnea, tachycardia, and she had to be reintubated and placed on mechanical ventilation post procedure. Patient was transferred to the ICU, and I was asked to see her on consultation. Reviewed the patient's chest x-ray post intubation. Reviewed her labs. ABG is pending. Discussed her condition with 2 daughters at bedside, left radial arterial line was established since the patient was hypotensive earlier, required fluid boluses and she required small dose of norepinephrine to maintain adequate blood pressure. She is presently on IV fluid at 100 mL per hour she is also on norepinephrine at 0.05 mcg/kg/m, and she received already a liter of fluid bolus earlier. Patient is resting well in bed, does not seem to be in any distress, she is on assist control rate of 18 tidal volume is 400 FiO2 50% and PEEP of 5. ABG showed a pO2 of 182 pCO2 of 50 pH of 7.39, this was on 50% FiO2 and I will cut it down to 35% CBC showed leukocytosis with WBC count of 14.8 hemoglobin is 7.7. Basic metabolic profile is basically unremarkable. Reevaluated today on 05/03/22, patient remains in the ICU, intubated and mechanically ventilated. She is on assist control rate of 18 tidal volume 400 FiO2 40% PEEP of 5 ABG this morning showed a pO2 of 96 pCO2 48 pH of 7.42. Patient is being tapered off propofol, she is now on 10 mcg/kg/m, she is off norepinephrine, she had low calcium and low magnesium last night, and she had some intermittent nonsustained episodes of ventricular tachycardia, resolved. Patient is arousable, follows simple instructions, and on a trial of pressure support of 8 and CPAP, patient was noted to maintain adequate tidal volumes and adequate respiratory rate in the teens. Hence after being on pressure support of 8 and CPAP, and while I was surrounding in the ICU, I recommended that we extubated the patient and have BiPAP at bedside with FiO2 40% IPAP of 12 and EPAP of 6. Her chest x-ray was reviewed, not much of a change compared to her baseline chest x-ray with infiltrates in the right lung. Patient was given 1 dose of Lasix since her urine output is marginal. And I went ahead and recommended extubating the patient. WBC count today is 10.4 hemoglobin is 7.7 platelets are normal basic metabolic profile is normal renal profile is normal magnesium is up to 1.8 Objective - Vital Signs Vital signs: Vital Signs Temp 97.9 F 05/03/22 08:00 Pulse 102 H 05/03/22 11:28 Resp 7 L 05/03/22 09:00 BP 93/53 05/03/22 09:00 Pulse Ox 99 05/03/22 09:00 FiO2 40 05/03/22 10:40 Intake & Output 05/02/22 05/03/22 05/03/22 18:59 06:59 18:59 Intake Total 8345.513 8985.248 443.572 Output Total 285 1040 80 Balance 1483.684 592.248 363.572 Weight 77.111 kg 72.4 kg Intake: IV 1600 825 225 Sodium Chloride 0.9% 1, 825 225 000 ml @ 75 mls/hr IV . [id number] [facility] Rx#:[id number] Intake, IV Titration 108.684 687.248 218.572 Amount Magnesium Sulfate-D5w Pmx 100 1 gm In Dextrose/Water 1 100ml.bag @ 100 mls/hr IVPB Q1H [facility] Rx#: [id number] Norepinephrine 4 mg In 42.600 403.097 34.522 Sodium Chloride 0.9% 250 ml @ 0.05 MCG/KG/MIN 14. 69 mls/hr IV .[id number] [facility] Rx#:[id number] propofoL 1,000 mg In 66.084 284.151 84.050 Empty Bag 1 bag @ 5 MCG/ KG/MIN 2.313 mls/hr IV . Q24H [facility] Rx#:[id number] Other 60 120 Output: Urine 285 1040 80 Other: Voiding Method Indwelling Catheter Indwelling Catheter ABP, PAP, CO, CI - Last Documented Arterial Blood Pressure 101/50 - Exam Physical Exam: Revealed a 71-year-old female intubated mechanically ventilated, on small dose of propofol, arousable, follows simple instructions. Head: Atraumatic, normocephalic, endotracheal tube and orogastric tube are intact. HEENT:[Neck is supple.] [No neck masses.] [No thyromegaly.] [No JVD.] Chest: [Symmetrical chest expansion, crackles at the bases especially at the right base. Cardiac Exam: [Normal S1 and S2, no S3 gallop, no murmur.] Abdomen: [Soft, nontender, no megaly, no rebound, no guarding, normal bowel sounds.] Extremities: [No clubbing, no edema, no cyanosis.] Neurological Exam: [No focal neurologic deficit.] Follows simple instructions. No focal deficits. Psychiatric: Normal mood affect and normal mental status examination. Skin: No rashes - Labs CBC & Chem 7: 05/03/22 04:40 05/03/22 04:40 Labs: Abnormal Lab Results - Last 24 Hours (Table) 05/02/22 05/02/22 05/02/22 Range/Units 13:58 14:03 14:03 WBC 14.8 H (3.8-10.6) k/uL RBC 3.00 L (3.80-5.40) m/uL Hgb 7.7 L D (11.4-16.0) gm/dL Hct 26.3 L (34.0-46.0) % MCHC 29.2 L (31.0-37.0) g/dL RDW 17.0 H (11.5-15.5) % Neutrophils # 13.0 H (1.3-7.7) k/uL Lymphocytes # 0.9 L (1.0-4.8) k/uL PT 14.2 H (9.0-12.0) sec INR 1.4 H (<1.2) ABG pCO2 (35-45) mmHg ABG pO2 (83-108) mmHg ABG HCO3 (21-25) mmol/L ABG Total CO2 (19-24) mmol/L ABG O2 Saturation (94-97) % Potassium (3.5-5.1) mmol/L Carbon Dioxide (22-30) mmol/L Creatinine (0.52-1.04) mg/dL Glucose (74-99) mg/dL POC Glucose (mg/dL) 120 H (70-110) mg/dL Calcium (8.4-10.2) mg/dL Magnesium (1.6-2.3) mg/dL AST (14-36) U/L Total Protein (6.3-8.2) g/dL Albumin (3.5-5.0) g/dL 05/02/22 05/02/22 05/02/22 Range/Units 14:03 15:43 17:51 WBC (3.8-10.6) k/uL RBC (3.80-5.40) m/uL Hgb (11.4-16.0) gm/dL Hct (34.0-46.0) % MCHC (31.0-37.0) g/dL RDW (11.5-15.5) % Neutrophils # (1.3-7.7) k/uL Lymphocytes # (1.0-4.8) k/uL PT (9.0-12.0) sec INR (<1.2) ABG pCO2 50 H (35-45) mmHg ABG pO2 182 H (83-108) mmHg ABG HCO3 30 H (21-25) mmol/L ABG Total CO2 32 H (19-24) mmol/L ABG O2 Saturation 99.9 H (94-97) % Potassium 3.4 L (3.5-5.1) mmol/L Carbon Dioxide 31 H (22-30) mmol/L Creatinine (0.52-1.04) mg/dL Glucose 113 H (74-99) mg/dL POC Glucose (mg/dL) 152 H (70-110) mg/dL Calcium 6.2 L* (8.4-10.2) mg/dL Magnesium (1.6-2.3) mg/dL AST (14-36) U/L Total Protein 5.6 L (6.3-8.2) g/dL Albumin 2.4 L (3.5-5.0) g/dL 05/02/22 05/02/22 05/03/22 Range/Units 20:03 21:24 00:38 WBC (3.8-10.6) k/uL RBC (3.80-5.40) m/uL Hgb (11.4-16.0) gm/dL Hct (34.0-46.0) % MCHC (31.0-37.0) g/dL RDW (11.5-15.5) % Neutrophils # (1.3-7.7) k/uL Lymphocytes # (1.0-4.8) k/uL PT (9.0-12.0) sec INR (<1.2) ABG pCO2 (35-45) mmHg ABG pO2 (83-108) mmHg ABG HCO3 (21-25) mmol/L ABG Total CO2 (19-24) mmol/L ABG O2 Saturation (94-97) % Potassium (3.5-5.1) mmol/L Carbon Dioxide (22-30) mmol/L Creatinine (0.52-1.04) mg/dL Glucose 153 H (74-99) mg/dL POC Glucose (mg/dL) 155 H 179 H (70-110) mg/dL Calcium 6.0 L* (8.4-10.2) mg/dL Magnesium 0.9 L* (1.6-2.3) mg/dL AST (14-36) U/L Total Protein (6.3-8.2) g/dL Albumin (3.5-5.0) g/dL 05/03/22 05/03/22 05/03/22 Range/Units 00:38 04:40 04:40 WBC (3.8-10.6) k/uL RBC 3.07 L (3.80-5.40) m/uL Hgb 7.7 L (11.4-16.0) gm/dL Hct 27.1 L (34.0-46.0) % MCHC 28.4 L (31.0-37.0) g/dL RDW 17.3 H (11.5-15.5) % Neutrophils # 9.6 H (1.3-7.7) k/uL Lymphocytes # 0.5 L (1.0-4.8) k/uL PT 13.3 H (9.0-12.0) sec INR 1.3 H (<1.2) ABG pCO2 (35-45) mmHg ABG pO2 (83-108) mmHg ABG HCO3 (21-25) mmol/L ABG Total CO2 (19-24) mmol/L ABG O2 Saturation (94-97) % Potassium 3.3 L (3.5-5.1) mmol/L Carbon Dioxide (22-30) mmol/L Creatinine 0.46 L (0.52-1.04) mg/dL Glucose 173 H (74-99) mg/dL POC Glucose (mg/dL) (70-110) mg/dL Calcium 6.2 L* (8.4-10.2) mg/dL Magnesium (1.6-2.3) mg/dL AST (14-36) U/L Total Protein (6.3-8.2) g/dL Albumin (3.5-5.0) g/dL 05/03/22 05/03/22 05/03/22 Range/Units 04:40 06:06 06:24 WBC (3.8-10.6) k/uL RBC (3.80-5.40) m/uL Hgb (11.4-16.0) gm/dL Hct (34.0-46.0) % MCHC (31.0-37.0) g/dL RDW (11.5-15.5) % Neutrophils # (1.3-7.7) k/uL Lymphocytes # (1.0-4.8) k/uL PT (9.0-12.0) sec INR (<1.2) ABG pCO2 48 H (35-45) mmHg ABG pO2 (83-108) mmHg ABG HCO3 31 H (21-25) mmol/L ABG Total CO2 33 H (19-24) mmol/L ABG O2 Saturation 98.0 H (94-97) % Potassium (3.5-5.1) mmol/L Carbon Dioxide (22-30) mmol/L Creatinine 0.41 L (0.52-1.04) mg/dL Glucose 137 H (74-99) mg/dL POC Glucose (mg/dL) 141 H (70-110) mg/dL Calcium 6.2 L* (8.4-10.2) mg/dL Magnesium (1.6-2.3) mg/dL AST 38 H (14-36) U/L Total Protein 6.0 L (6.3-8.2) g/dL Albumin 2.5 L (3.5-5.0) g/dL 05/03/22 Range/Units 11:25 WBC (3.8-10.6) k/uL RBC (3.80-5.40) m/uL Hgb (11.4-16.0) gm/dL Hct (34.0-46.0) % MCHC (31.0-37.0) g/dL RDW (11.5-15.5) % Neutrophils # (1.3-7.7) k/uL Lymphocytes # (1.0-4.8) k/uL PT (9.0-12.0) sec INR (<1.2) ABG pCO2 (35-45) mmHg ABG pO2 (83-108) mmHg ABG HCO3 (21-25) mmol/L ABG Total CO2 (19-24) mmol/L ABG O2 Saturation (94-97) % Potassium (3.5-5.1) mmol/L Carbon Dioxide (22-30) mmol/L Creatinine (0.52-1.04) mg/dL Glucose (74-99) mg/dL POC Glucose (mg/dL) 144 H (70-110) mg/dL Calcium (8.4-10.2) mg/dL Magnesium (1.6-2.3) mg/dL AST (14-36) U/L Total Protein (6.3-8.2) g/dL Albumin (3.5-5.0) g/dL Microbiology - Last 24 Hours (Table) 05/02/22 12:00 Gram Stain - Preliminary Bronchial Washings - Right Bronchial Washings Culture - Preliminary 05/02/22 12:01 Gram Stain - Preliminary Bronchial Washings - Right Bronchial Washings Culture - Preliminary 05/02/22 12:01 Acid Fast Bacilli Culture - Preliminary Bronchial Washings - Right 05/02/22 12:00 Fungal Culture - Preliminary Bronchial Washings - Right 05/02/22 12:01 Fungal Culture - Preliminary Bronchial Washings - Right 05/02/22 12:00 Acid Fast Bacilli Culture - Preliminary Bronchial Washings - Right Assessment and Plan Assessment: Impression: Acute on chronic hypoxic and hypercapnic respiratory failure secondary to acute exacerbation of COPD, exacerbated by bronchoscopy, endobronchial biopsies, transbronchial biopsies and BAL. Expected considering the severity of her COPD Chronic bilateral infiltrates, patient is status post BAL of the right upper lobe and biopsies which are pending. History of tuberculosis and previous right lower lobectomy Chronic hypoxic respiratory failure, normally on 3 L nasal cannula Severe COPD with FEV1 of 27% History of hypothyroidism. History of fibromyalgia. History of GERD without esophagitis. Tobacco dependence syndrome. History of right lower lobe resection. Previous history of TB in 2000 requiring a right lower lobe resection and treatment. Hypotension most likely secondary to hypovolemia, definitely doubt sepsis and septic shock. Patient improved with fluid boluses. Recommendation: Will give the patient a weaning trial with pressure support and CPAP. Will likely extubate the patient. Continue bronchodilators and steroids Continue Levaquin empirically. Continue to monitor in the ICU post extubation. Continue GI and DVT prophylaxis. Prognosis remains guarded We'll continue to follow. Critical care time is over 30 minutes Time with Patient: Greater than 30
[2022-05-03] MEDS: SODIUM CHLORIDE 0.9% 1,000 ML IV SCH ×2 (11:48→22:58)
[2022-05-03] MEDS: LEVOFLOXACIN 500MG-D5W PMX 500 MG in DEXTROSE/WATER 1 100ML.BAG IVPB SCH (18:02)
[2022-05-03 21:54] LABS: Glucose,Whole Blood 164 mg/dL (70-110)
[2022-05-04] MEDS: methylPREDNISolone SOD SUCCI 125 MG/2 ML VIAL IV SCH ×5 (00:31→23:17)
[2022-05-04 01:19] LABS: Glucose,Whole Blood 117 mg/dL (70-110)
[2022-05-04] MEDS: NOREPINEPHRINE 4 MG in SODIUM CHLORIDE 0.9% 250 ML IV SCH ×2 (02:10→19:13)
[2022-05-04] MEDS: IPRATROPIUM-ALBUTEROL 3 ML NEB INHALATION SCH ×6 (03:39→23:47)
[2022-05-04 05:39] LABS: Glucose,Whole Blood 134 mg/dL (70-110)
[2022-05-04] MEDS: LACTATED RINGERS 1,000 ML IV SCH ×2 (05:44)
[2022-05-04 05:47] LABS: Anisocytosis Slight; Basophils % (A) 0 %; Eosinophils % (A) 0 %; HCT 26.5 % (34.0-46.0); HGB 7.6 gm/dL (11.4-16.0); Hypochromasia Marked; Lymphocytes # (A) 0.4 k/uL (1.0-4.8); Lymphocytes % (A) 3 %; MCH 25.9 pg (25.0-35.0); MCHC 28.9 g/dL (31.0-37.0); MCV 89.5 fL (80.0-100.0); Mean Platelet Volume 7.5; Monocytes # (A) 0.2 k/uL (0-1.0); Monocytes % (A) 2 %; Neutrophils # (A) 12.2 k/uL (1.3-7.7); Neutrophils % (A) 95 %; Platelet Count 390 k/uL (150-450); RBC 2.95 m/uL (3.80-5.40); RDW 17.9 % (11.5-15.5); WBC 12.9 k/uL (3.8-10.6)
[2022-05-04 05:57] LABS: African American GFR (CKD) >90 (>60 ml/min/1.73 sqM); Anion Gap 5 mmol/L; Blood Urea Nitrogen 15 mg/dL (7-17); Calcium 6.9 mg/dL (8.4-10.2); Carbon Dioxide 33 mmol/L (22-30); Chloride 104 mmol/L (98-107); Glucose 133 mg/dL (74-99); Non-African American GFR(CKD) >90 (>60 ml/min/1.73 sqM); Potassium 3.2 mmol/L (3.5-5.1); Sodium 142 mmol/L (137-145)
[2022-05-04 06:26] LABS: Glucose,Whole Blood 145 mg/dL (70-110)
[2022-05-04] MEDS: BUDESONIDE 0.5 MG/2 ML NEBU INHALATION SCH ×2 (08:16→20:19)
--- NOTE | 2022-05-04 08:24 | XR ---
EXAMINATION TYPE: XR chest 1V portable DATE OF EXAM: 05/04/2022 Comparison: 05/03/2022 Clinical History: 71 year-old female tube placement Findings: ET tube has been removed in the interval. Upright exam compared to the prior semiupright study. Suspe ct similar moderate right pleural effusion with patchy opacities throughout the right lung. Hyperinfl ation left hemithorax. Volume loss in the right hemithorax with some rightward mediastinal shift. The heart appears larger, likely on a technical basis. Impression: Current upright exam being compared to the prior semiupright. Similar volume loss in the right hemith orax and suspect similar moderate right pleural effusion. Patchy opacities persist throughout the rig ht lung. Interval extubation.
[2022-05-04] MEDS: PANTOPRAZOLE 40 MG/10 ML VIAL IVP SCH (08:53)
[2022-05-04] MEDS: POTASSIUM CHLORIDE ER 20 MEQ TAB.ER PO SCH ×2 (08:53→13:14)
[2022-05-04] MEDS: ENOXAPARIN 40 MG/0.4 ML SYRINGE SQ SCH (08:53)
[2022-05-04] MEDS: LEVOTHYROXINE 88 MCG TAB PO SCH (08:54)
[2022-05-04 11:49] LABS: Glucose,Whole Blood 132 mg/dL (70-110)
--- NOTE | 2022-05-04 12:09 | P.PN ---
Subjective Progress Note Date: 05/04/22 Principal diagnosis: Acute hypoxic respiratory failure This is a 71-year-old female with history of severe COPD, patient has called stage IV COPD, FEV1 is in the range of 27%. Over the last few months, patient was hospitalized for acute exacerbation of COPD, and abnormal chest x-ray showing infiltrates in the right upper lobe and right lower lobe. Patient had follow-up with Dr. galvan for her COPD and her persistently abnormal chest x-ray, patient underwent a bronchoscopy, BAL of the right upper lobe, endobronchial biopsies and transbronchial biopsies of the right upper lobe today. Her procedure went uneventful, however the patient was extubated and she was still in the recovery room. Shortly after the patient developed worsening shortness of breath, tachypnea, tachycardia, and she had to be reintubated and placed on mechanical ventilation post procedure. Patient was transferred to the ICU, and I was asked to see her on consultation. Reviewed the patient's chest x-ray post intubation. Reviewed her labs. ABG is pending. Discussed her condition with 2 daughters at bedside, left radial arterial line was established since the patient was hypotensive earlier, required fluid boluses and she required small dose of norepinephrine to maintain adequate blood pressure. She is presently on IV fluid at 100 mL per hour she is also on norepinephrine at 0.05 mcg/kg/m, and she received already a liter of fluid bolus earlier. Patient is resting well in bed, does not seem to be in any distress, she is on assist control rate of 18 tidal volume is 400 FiO2 50% and PEEP of 5. ABG showed a pO2 of 182 pCO2 of 50 pH of 7.39, this was on 50% FiO2 and I will cut it down to 35% CBC showed leukocytosis with WBC count of 14.8 hemoglobin is 7.7. Basic metabolic profile is basically unremarkable. Reevaluated today on 05/03/22, patient remains in the ICU, intubated and mechanically ventilated. She is on assist control rate of 18 tidal volume 400 FiO2 40% PEEP of 5 ABG this morning showed a pO2 of 96 pCO2 48 pH of 7.42. Patient is being tapered off propofol, she is now on 10 mcg/kg/m, she is off norepinephrine, she had low calcium and low magnesium last night, and she had some intermittent nonsustained episodes of ventricular tachycardia, resolved. Patient is arousable, follows simple instructions, and on a trial of pressure support of 8 and CPAP, patient was noted to maintain adequate tidal volumes and adequate respiratory rate in the teens. Hence after being on pressure support of 8 and CPAP, and while I was surrounding in the ICU, I recommended that we extubated the patient and have BiPAP at bedside with FiO2 40% IPAP of 12 and EPAP of 6. Her chest x-ray was reviewed, not much of a change compared to her baseline chest x-ray with infiltrates in the right lung. Patient was given 1 dose of Lasix since her urine output is marginal. And I went ahead and recommended extubating the patient. WBC count today is 10.4 hemoglobin is 7.7 platelets are normal basic metabolic profile is normal renal profile is normal magnesium is up to 1.8 Reevaluated today on 05/04/22, patient remains in the ICU, she was extubated yesterday, she tolerated the extubation quite well. No issues overnight, patient remains on 3 L nasal cannula, and she is also on 3 L at home. CBC today is relatively normal hemoglobin is 7.6 electrolytes are normal renal profile is normal potassium is a bit low and being corrected as per protocol. Chest x-ray is almost back to baseline, her infiltrates in the lung persist and these are chronic. Hence I plan to remove the patient for discharge home today, patient will resume her home meds, I would recommend adding Levaquin and prednisone. Objective - Vital Signs Vital signs: Vital Signs Temp 97.6 F 05/04/22 08:00 Pulse 112 H 05/04/22 11:39 Resp 20 05/04/22 11:00 BP 122/68 05/04/22 11:00 Pulse Ox 98 05/04/22 11:00 FiO2 40 05/03/22 12:00 Intake & Output 05/03/22 05/04/22 05/04/22 18:59 06:59 18:59 Intake Total 1508.572 945 375 Output Total 2090 365 180 Balance -581.428 580 195 Weight 71.5 kg Intake: IV 990 825 375 Levofloxacin 500Mg-D5w 100 Pmx 500 mg In Dextrose/ Water 1 100ml.bag @ 100 mls/hr IVPB Q24H [facility] Rx#: [id number] Sodium Chloride 0.9% 1, 890 825 375 000 ml @ 75 mls/hr IV . [id number] [facility] Rx#:[id number] Intake, IV Titration 318.572 Amount Magnesium Sulfate-D5w Pmx 200 1 gm In Dextrose/Water 1 100ml.bag @ 100 mls/hr IVPB Q1H [facility] Rx#: [id number] Norepinephrine 4 mg In 34.522 Sodium Chloride 0.9% 250 ml @ 0.05 MCG/KG/MIN 14. 69 mls/hr IV .[id number] [facility] Rx#:[id number] propofoL 1,000 mg In 84.050 Empty Bag 1 bag @ 5 MCG/ KG/MIN 2.313 mls/hr IV . Q24H [facility] Rx#:[id number] Oral 200 120 Output: Urine 2090 365 180 Other: Voiding Method Indwelling Catheter Indwelling Catheter Indwelling Catheter ABP, PAP, CO, CI - Last Documented Arterial Blood Pressure 101/50 - Exam Physical Exam: Revealed a 71-year-old female on 3 L nasal cannula, in no distress. Head: Atraumatic, normocephalic HEENT:[Neck is supple.] [No neck masses.] [No thyromegaly.] [No JVD.] Moist mucous membranes. Chest: [Symmetrical chest expansion, crackles at the bases especially at the right base. Cardiac Exam: [Normal S1 and S2, no S3 gallop, no murmur.] Abdomen: [Soft, nontender, no megaly, no rebound, no guarding, normal bowel sounds.] Extremities: [No clubbing, no edema, no cyanosis.] Neurological Exam: Alert and oriented 3 no gross focal deficits. Psychiatric: Normal mood affect and normal mental status examination. Skin: No rashes - Labs CBC & Chem 7: 05/04/22 05:08 05/04/22 05:08 Labs: Abnormal Lab Results - Last 24 Hours (Table) 05/02/22 05/03/22 05/04/22 Range/Units 12:00 21:52 01:17 WBC (3.8-10.6) k/uL RBC (3.80-5.40) m/uL Hgb (11.4-16.0) gm/dL Hct (34.0-46.0) % MCHC (31.0-37.0) g/dL RDW (11.5-15.5) % Neutrophils # (1.3-7.7) k/uL Lymphocytes # (1.0-4.8) k/uL Potassium (3.5-5.1) mmol/L Carbon Dioxide (22-30) mmol/L Creatinine (0.52-1.04) mg/dL Glucose (74-99) mg/dL POC Glucose (mg/dL) 164 H 117 H (70-110) mg/dL Calcium (8.4-10.2) mg/dL Viral Test See Below A 05/04/22 05/04/22 05/04/22 Range/Units 05:08 05:08 05:38 WBC 12.9 H (3.8-10.6) k/uL RBC 2.95 L (3.80-5.40) m/uL Hgb 7.6 L (11.4-16.0) gm/dL Hct 26.5 L (34.0-46.0) % MCHC 28.9 L (31.0-37.0) g/dL RDW 17.9 H (11.5-15.5) % Neutrophils # 12.2 H (1.3-7.7) k/uL Lymphocytes # 0.4 L (1.0-4.8) k/uL Potassium 3.2 L (3.5-5.1) mmol/L Carbon Dioxide 33 H (22-30) mmol/L Creatinine 0.48 L (0.52-1.04) mg/dL Glucose 133 H (74-99) mg/dL POC Glucose (mg/dL) 134 H (70-110) mg/dL Calcium 6.9 L (8.4-10.2) mg/dL Viral Test 05/04/22 05/04/22 Range/Units 06:24 11:48 WBC (3.8-10.6) k/uL RBC (3.80-5.40) m/uL Hgb (11.4-16.0) gm/dL Hct (34.0-46.0) % MCHC (31.0-37.0) g/dL RDW (11.5-15.5) % Neutrophils # (1.3-7.7) k/uL Lymphocytes # (1.0-4.8) k/uL Potassium (3.5-5.1) mmol/L Carbon Dioxide (22-30) mmol/L Creatinine (0.52-1.04) mg/dL Glucose (74-99) mg/dL POC Glucose (mg/dL) 145 H 132 H (70-110) mg/dL Calcium (8.4-10.2) mg/dL Viral Test Microbiology - Last 24 Hours (Table) 05/02/22 12:01 Gram Stain - Final Bronchial Washings - Right Bronchial Washings Culture - Final 05/02/22 12:00 Gram Stain - Final Bronchial Washings - Right Bronchial Washings Culture - Final 05/02/22 12:01 Acid Fast Bacilli Smear - Final Bronchial Washings - Right Acid Fast Bacilli Culture - Preliminary 05/02/22 12:00 Acid Fast Bacilli Smear - Final Bronchial Washings - Right Acid Fast Bacilli Culture - Preliminary Assessment and Plan Assessment: Impression: Acute on chronic hypoxic and hypercapnic respiratory failure secondary to acute exacerbation of COPD, exacerbated by bronchoscopy, endobronchial biopsies, transbronchial biopsies and BAL. Expected considering the severity of her COPD Chronic bilateral infiltrates, patient is status post BAL of the right upper lobe and biopsies which are pending. History of tuberculosis and previous right lower lobectomy Chronic hypoxic respiratory failure, normally on 3 L nasal cannula Severe COPD with FEV1 of 27% History of hypothyroidism. History of fibromyalgia. History of GERD without esophagitis. Tobacco dependence syndrome. History of right lower lobe resection. Previous history of TB in 2000 requiring a right lower lobe resection and treatment. Hypotension most likely secondary to hypovolemia, definitely doubt sepsis and septic shock. Patient improved with fluid boluses. Recommendation: Patient tolerated extubation well over the last 24 hours, remains on nasal cannula. I will clear the patient to be discharged home today. Would recommend 7 days of Levaquin 500 milligrams daily for 7 days Would recommend prednisone 30 mg tapered over the next 15 days Patient is to follow-up with Dr. galvan in one week. Time with Patient: Less than 30
[2022-05-04 12:50] VITALS: BMI 27.9
[2022-05-04 13:09] LABS: Glucose,Whole Blood 157 mg/dL (70-110)
[2022-05-04 18:06] LABS: Glucose,Whole Blood 154 mg/dL (70-110)
[2022-05-04] MEDS: LEVOFLOXACIN 500MG-D5W PMX 500 MG in DEXTROSE/WATER 1 100ML.BAG IVPB SCH (18:48)
[2022-05-04] MEDS: SODIUM CHLORIDE 0.9% 1,000 ML IV SCH (19:20)
--- NOTE | 2022-05-04 20:31 | P.PN ---
Subjective This is a pleasant 71 his FEMALE with past medical history of COPD, Fibromyalgia, GERD/Reflux, Pneumonia, hypothyroidism, sarcoidosis, chronic cough , Fusch's disease,Uses wheelchair for long distances due to SOB. Patient was followed up with operations administrator Dr. Garcia for advanced COPD exacerbation, also her chest x-ray showing right-sided infiltrate involving both upper and lower zones of the lung. patient underwent bronchoscopy and therapeutic liver edge, bronchoalveolar lavage and endotracheal and transbronchial biopsy of the right upper lobe and right lower lobe. And sample was sent to the lab. Because of her advanced stage COPD she is expected to be intubated and being in the hospital for a few days. 05/04/2022 Patient is got extubated and today she was sitting up in bed, looks very comfortable, fully awake and alert, attentive mentation baseline. She was breathing quietly. No significant dyspnea or coughing. No chest pain. She denies any abdominal pain or change in urine or bowel habits. No fever. She is with hemodynamically stable. The patient was cleared for discharge by operations administrator on Levaquin 7 day and tapered dose of prednisone started 30 mg. However patient and family did not feel comfortable to go home today and wants to wait 24 hours Objective - Vital Signs Vital signs: Vital Signs Temp 98.6 F 05/04/22 16:00 Pulse 112 H 05/04/22 20:19 Resp 12 05/04/22 19:00 BP 113/76 05/04/22 17:00 Pulse Ox 97 05/04/22 19:00 FiO2 40 05/03/22 12:00 Intake & Output 05/04/22 05/04/22 05/05/22 06:59 18:59 06:59 Intake Total 945 900 75 Output Total 365 290 0 Balance 580 610 75 Weight 71.5 kg 71.5 kg Intake: IV 825 900 75 Sodium Chloride 0.9% 1, 825 900 75 000 ml @ 75 mls/hr IV . [id number] [facility] Rx#:[id number] Oral 120 Output: Urine 365 290 0 Other: Voiding Method Indwelling Catheter Indwelling Catheter # Voids 1 # Bowel Movements 1 ABP, PAP, CO, CI - Last Documented Arterial Blood Pressure 101/50 - Exam GENERAL: The patient is alert and oriented x3, not in any acute distress. Well developed, well nourished. HEENT: Pupils are round and equally reacting to light. EOMI. No scleral icterus. No conjunctival pallor. Normocephalic, atraumatic. No pharyngeal erythema. No thyromegaly. CARDIOVASCULAR: S1 and S2 present. No murmurs, rubs, or gallops. PULMONARY: Chest is clear to auscultation, no wheezing or crackles. ABDOMEN: Soft, nontender, nondistended, normoactive bowel sounds. No palpable organomegaly. MUSCULOSKELETAL: No joint swelling or deformity. EXTREMITIES: No cyanosis, clubbing, or pedal edema. NEUROLOGICAL: Gross neurological examination did not reveal any focal deficits. SKIN: No rashes. no petechiae. - Labs CBC & Chem 7: 05/04/22 05:08 05/04/22 05:08 Labs: Abnormal Lab Results - Last 24 Hours (Table) 05/02/22 05/03/22 05/04/22 Range/Units 12:01 21:52 01:17 WBC (3.8-10.6) k/uL RBC (3.80-5.40) m/uL Hgb (11.4-16.0) gm/dL Hct (34.0-46.0) % MCHC (31.0-37.0) g/dL RDW (11.5-15.5) % Neutrophils # (1.3-7.7) k/uL Lymphocytes # (1.0-4.8) k/uL Potassium (3.5-5.1) mmol/L Carbon Dioxide (22-30) mmol/L Creatinine (0.52-1.04) mg/dL Glucose (74-99) mg/dL POC Glucose (mg/dL) 164 H 117 H (70-110) mg/dL Calcium (8.4-10.2) mg/dL Viral Test See Below A 05/04/22 05/04/22 05/04/22 Range/Units 05:08 05:08 05:38 WBC 12.9 H (3.8-10.6) k/uL RBC 2.95 L (3.80-5.40) m/uL Hgb 7.6 L (11.4-16.0) gm/dL Hct 26.5 L (34.0-46.0) % MCHC 28.9 L (31.0-37.0) g/dL RDW 17.9 H (11.5-15.5) % Neutrophils # 12.2 H (1.3-7.7) k/uL Lymphocytes # 0.4 L (1.0-4.8) k/uL Potassium 3.2 L (3.5-5.1) mmol/L Carbon Dioxide 33 H (22-30) mmol/L Creatinine 0.48 L (0.52-1.04) mg/dL Glucose 133 H (74-99) mg/dL POC Glucose (mg/dL) 134 H (70-110) mg/dL Calcium 6.9 L (8.4-10.2) mg/dL Viral Test 05/04/22 05/04/22 05/04/22 Range/Units 06:24 11:48 13:07 WBC (3.8-10.6) k/uL RBC (3.80-5.40) m/uL Hgb (11.4-16.0) gm/dL Hct (34.0-46.0) % MCHC (31.0-37.0) g/dL RDW (11.5-15.5) % Neutrophils # (1.3-7.7) k/uL Lymphocytes # (1.0-4.8) k/uL Potassium (3.5-5.1) mmol/L Carbon Dioxide (22-30) mmol/L Creatinine (0.52-1.04) mg/dL Glucose (74-99) mg/dL POC Glucose (mg/dL) 145 H 132 H 157 H (70-110) mg/dL Calcium (8.4-10.2) mg/dL Viral Test 05/04/22 Range/Units 18:04 WBC (3.8-10.6) k/uL RBC (3.80-5.40) m/uL Hgb (11.4-16.0) gm/dL Hct (34.0-46.0) % MCHC (31.0-37.0) g/dL RDW (11.5-15.5) % Neutrophils # (1.3-7.7) k/uL Lymphocytes # (1.0-4.8) k/uL Potassium (3.5-5.1) mmol/L Carbon Dioxide (22-30) mmol/L Creatinine (0.52-1.04) mg/dL Glucose (74-99) mg/dL POC Glucose (mg/dL) 154 H (70-110) mg/dL Calcium (8.4-10.2) mg/dL Viral Test Microbiology - Last 24 Hours (Table) 05/02/22 12:01 Gram Stain - Final Bronchial Washings - Right Bronchial Washings Culture - Final 05/02/22 12:00 Gram Stain - Final Bronchial Washings - Right Bronchial Washings Culture - Final 05/02/22 12:01 Acid Fast Bacilli Smear - Final Bronchial Washings - Right Acid Fast Bacilli Culture - Preliminary 05/02/22 12:00 Acid Fast Bacilli Smear - Final Bronchial Washings - Right Acid Fast Bacilli Culture - Preliminary Assessment and Plan Assessment: Right pulmonary infiltrate, status post bronchoscopy and bronchoalveolar lavage on 05/02, followed by intubation/extubation. Improving Acute advanced COPD exacerbation Acute hypoxic respiratory failure history of pulmonary tuberculosis History of GERD Fibromyalgia Hypothyroidism History of sarcoidosis A chronic cough Plan: This is a pleasant 71 years old femaleUnderwent bronchoscopy and BAL followed by intubationPatient was cleared for discharge by operations administrator on oral Levaquin on tapered prednisone Patient and family want to wait, they did not feel patient is ready to go today. Labs and medication were reviewed.. Continue same treatment. Continue with symptomatic treatment. Resume home medication. Monitor lytes and vitals. DVT and GI prophylaxis. Further recommendations as per clinical course of the patient GI Prophylaxis: ppi Keep monitoring for 24-48 hours and possible discharge and remained stable and improving Discussed with the bedside nurse
[2022-05-04] MEDS ORDERED: POTASSIUM BICARBONATE/CIT AC 20 MEQ TABLET.EFF NG-TUBE SCH (21:00)
[2022-05-05 00:16] LABS: Glucose,Whole Blood 133 mg/dL (70-110)
[2022-05-05] MEDS: SODIUM CHLORIDE 0.9% 1,000 ML IV SCH (04:17)
[2022-05-05] MEDS: LACTATED RINGERS 1,000 ML IV SCH (04:18)
[2022-05-05] MEDS: IPRATROPIUM-ALBUTEROL 3 ML NEB INHALATION SCH ×3 (05:12→11:48)
[2022-05-05 05:52] LABS: Glucose,Whole Blood 152 mg/dL (70-110)
[2022-05-05] MEDS: methylPREDNISolone SOD SUCCI 125 MG/2 ML VIAL IV SCH ×2 (06:19→13:13)
[2022-05-05] MEDS: BUDESONIDE 0.5 MG/2 ML NEBU INHALATION SCH (07:41)
[2022-05-05] MEDS: LEVOTHYROXINE 88 MCG TAB PO SCH (08:44)
[2022-05-05] MEDS: ENOXAPARIN 40 MG/0.4 ML SYRINGE SQ SCH (08:44)
[2022-05-05] MEDS: PANTOPRAZOLE 40 MG/10 ML VIAL IVP SCH (08:44)
[2022-05-05 11:11] VITALS: BP 126/81
[2022-05-05 11:38] LABS: Glucose,Whole Blood 108 mg/dL (70-110)
--- NOTE | 2022-05-05 12:28 | P.PN ---
Subjective Progress Note Date: 05/05/22 Principal diagnosis: Acute hypoxic respiratory failure This is a 71-year-old female with history of severe COPD, patient has called stage IV COPD, FEV1 is in the range of 27%. Over the last few months, patient was hospitalized for acute exacerbation of COPD, and abnormal chest x-ray showing infiltrates in the right upper lobe and right lower lobe. Patient had follow-up with Dr. galvan for her COPD and her persistently abnormal chest x-ray, patient underwent a bronchoscopy, BAL of the right upper lobe, endobronchial biopsies and transbronchial biopsies of the right upper lobe today. Her procedure went uneventful, however the patient was extubated and she was still in the recovery room. Shortly after the patient developed worsening shortness of breath, tachypnea, tachycardia, and she had to be reintubated and placed on mechanical ventilation post procedure. Patient was transferred to the ICU, and I was asked to see her on consultation. Reviewed the patient's chest x-ray post intubation. Reviewed her labs. ABG is pending. Discussed her condition with 2 daughters at bedside, left radial arterial line was established since the patient was hypotensive earlier, required fluid boluses and she required small dose of norepinephrine to maintain adequate blood pressure. She is presently on IV fluid at 100 mL per hour she is also on norepinephrine at 0.05 mcg/kg/m, and she received already a liter of fluid bolus earlier. Patient is resting well in bed, does not seem to be in any distress, she is on assist control rate of 18 tidal volume is 400 FiO2 50% and PEEP of 5. ABG showed a pO2 of 182 pCO2 of 50 pH of 7.39, this was on 50% FiO2 and I will cut it down to 35% CBC showed leukocytosis with WBC count of 14.8 hemoglobin is 7.7. Basic metabolic profile is basically unremarkable. Reevaluated today on 05/03/22, patient remains in the ICU, intubated and mechanically ventilated. She is on assist control rate of 18 tidal volume 400 FiO2 40% PEEP of 5 ABG this morning showed a pO2 of 96 pCO2 48 pH of 7.42. Patient is being tapered off propofol, she is now on 10 mcg/kg/m, she is off norepinephrine, she had low calcium and low magnesium last night, and she had some intermittent nonsustained episodes of ventricular tachycardia, resolved. Patient is arousable, follows simple instructions, and on a trial of pressure support of 8 and CPAP, patient was noted to maintain adequate tidal volumes and adequate respiratory rate in the teens. Hence after being on pressure support of 8 and CPAP, and while I was surrounding in the ICU, I recommended that we extubated the patient and have BiPAP at bedside with FiO2 40% IPAP of 12 and EPAP of 6. Her chest x-ray was reviewed, not much of a change compared to her baseline chest x-ray with infiltrates in the right lung. Patient was given 1 dose of Lasix since her urine output is marginal. And I went ahead and recommended extubating the patient. WBC count today is 10.4 hemoglobin is 7.7 platelets are normal basic metabolic profile is normal renal profile is normal magnesium is up to 1.8 Reevaluated today on 05/04/22, patient remains in the ICU, she was extubated yesterday, she tolerated the extubation quite well. No issues overnight, patient remains on 3 L nasal cannula, and she is also on 3 L at home. CBC today is relatively normal hemoglobin is 7.6 electrolytes are normal renal profile is normal potassium is a bit low and being corrected as per protocol. Chest x-ray is almost back to baseline, her infiltrates in the lung persist and these are chronic. Hence I plan to remove the patient for discharge home today, patient will resume her home meds, I would recommend adding Levaquin and prednisone. Reevaluated today on , patient continues to do well, I cleared the patient to be discharged home yesterday, and I'm clearing her again to go home today. Patient is on 3 L nasal cannula O2 sats at 98%, no major issues overnight, patient would like to be discharged home today if possible. Objective - Vital Signs Vital signs: Vital Signs Temp 98.0 F 05/05/22 08:00 Pulse 108 H 05/05/22 11:00 Resp 27 H 05/05/22 11:00 BP 126/81 05/05/22 11:00 Pulse Ox 98 05/05/22 11:00 FiO2 40 05/03/22 12:00 Intake & Output 05/04/22 05/05/22 05/05/22 18:59 06:59 18:59 Intake Total 900 95 Output Total 290 0 Balance 610 95 Weight 71.5 kg 72 kg Intake: IV 900 95 Sodium Chloride 0.9% 1, 900 95 000 ml @ 75 mls/hr IV . [id number] [facility] Rx#:[id number] Output: Urine 290 0 Other: Voiding Method Indwelling Catheter Toilet Toilet # Voids 1 1 0 # Bowel Movements 1 ABP, PAP, CO, CI - Last Documented Arterial Blood Pressure 101/50 - Exam Physical Exam: Revealed a 71-year-old female on 3 L nasal cannula, in no distress. Head: Atraumatic, normocephalic HEENT:[Neck is supple.] [No neck masses.] [No thyromegaly.] [No JVD.] Moist mucous membranes. Chest: [Symmetrical chest expansion, crackles at the bases especially at the right base. Cardiac Exam: [Normal S1 and S2, no S3 gallop, no murmur.] Abdomen: [Soft, nontender, no megaly, no rebound, no guarding, normal bowel sounds.] Extremities: [No clubbing, no edema, no cyanosis.] Neurological Exam: Alert and oriented 3 no gross focal deficits. Psychiatric: Normal mood affect and normal mental status examination. Skin: No rashes - Labs CBC & Chem 7: 05/04/22 05:08 05/04/22 19:55 Labs: Abnormal Lab Results - Last 24 Hours (Table) 05/02/22 05/04/22 05/04/22 Range/Units 12:01 13:07 18:04 POC Glucose (mg/dL) 157 H 154 H (70-110) mg/dL Viral Test See Below A 05/05/22 05/05/22 Range/Units 00:14 05:51 POC Glucose (mg/dL) 133 H 152 H (70-110) mg/dL Viral Test Microbiology - Last 24 Hours (Table) 05/02/22 12:01 Gram Stain - Final Bronchial Washings - Right Bronchial Washings Culture - Final 05/02/22 12:00 Gram Stain - Final Bronchial Washings - Right Bronchial Washings Culture - Final Assessment and Plan Assessment: Impression: Acute on chronic hypoxic and hypercapnic respiratory failure secondary to acute exacerbation of COPD, exacerbated by bronchoscopy, endobronchial biopsies, transbronchial biopsies and BAL. Expected considering the severity of her COPD Chronic bilateral infiltrates, patient is status post BAL of the right upper lobe and biopsies which are pending. History of tuberculosis and previous right lower lobectomy Chronic hypoxic respiratory failure, normally on 3 L nasal cannula Severe COPD with FEV1 of 27% History of hypothyroidism. History of fibromyalgia. History of GERD without esophagitis. Tobacco dependence syndrome. History of right lower lobe resection. Previous history of TB in 2000 requiring a right lower lobe resection and treatment. Hypotension most likely secondary to hypovolemia, definitely doubt sepsis and septic shock. Patient improved with fluid boluses. Recommendation: Explained to the patient that her bronchoscopy findings were nondiagnostic, negative for malignancy, negative for any unusual infection at this point at least so far. And basically consistent with inflammation. I will clear the patient to be discharged home today. Would recommend 7 days of Levaquin 500 milligrams daily for 7 days Would recommend prednisone 30 mg tapered over the next 15 days Patient is to follow-up with Dr. galvan in one week. Time with Patient: Less than 30
[2022-05-05 12:42] VITALS: PULSE 105; RESP 24; TEMP 97.7
--- NOTE | 2022-05-06 00:18 | P.DS ---
Providers Date of admission: 05/02/22 13:05 Attending physician: Yrn Rodríguez Consults: 05/02/22 13:06 Consult Physician Stat Consulting Provider: James Garcia Consult Reason/Comments: RESPIRATORY FAILURE/INTUBATION POST BRONCHOSCOPY Do you want consulting provider notified?: Already Contacted Consult Physician Urgent Consulting Provider: James Garcia Consult Reason/Comments: ICU CARE Do you want consulting provider notified?: Already Contacted Placement Type Exists?: Yes Primary care physician: Alexandra Krishnan Hospital Course: Diagnoses Right pulmonary infiltrate, status post bronchoscopy and bronchoalveolar lavage on 05/02, followed by intubation/extubation. Improving Acute advanced COPD exacerbation Acute hypoxic respiratory failure history of pulmonary tuberculosis History of GERD Fibromyalgia Hypothyroidism History of sarcoidosis A chronic cough Hospital course This is a pleasant 71 his FEMALE with past medical history of COPD, Fibromyalgia, GERD/Reflux, Pneumonia, hypothyroidism, sarcoidosis, chronic cough, Fusch's disease,Uses wheelchair for long distances due to SOB. Patient was followed up with passenger elevator operator Dr. Garcia for advanced COPD exacerbation, also her chest x-ray showing right-sided infiltrate involving both upper and lower zones of the lung. patient underwent bronchoscopy and therapeutic lavage, bronchoalveolar lavage and endotracheal and transbronchial b iopsy of the right upper lobe and right lower lobe. And sample was sent to the lab and results were unremarkable for malignancy or infection. Because of her advanced stage COPD she is expected to be intubated and being in the hospital for a few days. Patient got extubated shortly, and she was doing well clinically. She is awake and back to baseline. She has no or minimal respiratory symptoms. Significant dyspnea or chest pain. Patient was cleared for discharge yesterday but the patient and family wanted to wait until today per staff. Today she Doing well and she remains asymptomatic. No change in urine or bowel habits. No fevers. Patient was cleared for discharge by passenger elevator operator Problems and management plan were discussed with the patient and he verbalized understanding and acceptance Patient was found stable and can be discharged home however he needs follow-up as an outpatient. Patient was instructed to follow up with PCP Dr. Adair within one week and patient agrees Patient was instructed to follow up with Dr. Garcia in one week and she agrees to call and make an appointment as today is weekend Physical exam Gen: patient is a AAOx3, no distress CVS: S1-S2, RRR, no murmur Lungs: B/L CTA, no wheezing Abdomen: soft, no distention, no tenderness, positive bowel sounds Extremity: no leg edema or induration Time spent more than 35 minutes Plan - Discharge Summary Discharge Rx Participant: No New Discharge Prescriptions: New Levofloxacin [Levaquin] 500 mg PO DAILY 7 Days #7 tab predniSONE 10 mg PO DIRECTED #30 tab Continue Omeprazole 20 mg PO QAM Levothyroxine Sodium [Synthroid] 88 mcg PO QAM Albuterol Sulfate [Albuterol Sulfate Hfa] 2 puff PO Q6H PRN PRN Reason: Shortness Of Breath Budesonide [Pulmicort] 0.5 mg INHALATION BID Trelegy Ellipta (Unknown Dose) 1 puff INHALATION QAM Discharge Medication List Omeprazole 20 mg PO QAM 08/28/16 [History] Levothyroxine Sodium [Synthroid] 88 mcg PO QAM 10/26/21 [History] Albuterol Sulfate [Albuterol Sulfate Hfa] 2 puff PO Q6H PRN 04/04/22 [History] Budesonide [Pulmicort] 0.5 mg INHALATION BID 04/30/22 [History] Trelegy Ellipta (Unknown Dose) 1 puff INHALATION QAM 04/30/22 [History] Levofloxacin [Levaquin] 500 mg PO DAILY 7 Days #7 tab 05/04/22 [Rx] predniSONE 10 mg PO DIRECTED #30 tab 05/04/22 [Rx] Follow up Appointment(s)/Referral(s): Yrn Rodríguez MD [Medical Doctor] - 1 Week (call on saturday to make appt.) James Garcia DO [Doctor of Osteopathic Medicine] - 1 Week (keep appt you already have) [facility] Visiting Nurse, [NON-STAFF] - (Visiting nurse homecare will contact you to arrange a visit) Patient Instructions/Handouts: COPD (Chronic Obstructive Pulmonary Disease) (DC) Activity/Diet/Wound Care/Special Instructions: Heart healthy diet Activity is unrestricted till you see your doctor Discharge Disposition: HOME WITH HOME HEALTH SERVICES
== END 2022-05-05 13:35 | disposition home health service (06) | DRG 166 ==
LOC: ORWHC2ENDO 11:30 → 2SICU 13:05
PROVIDERS: ADMIT Internal Medicine Geriatric Medicine; ATTEND Internal Medicine Geriatric Medicine
PROC: 0BBF8ZX Excision of Right Lower Lung Lobe, Via Natural or Artificial Opening Endoscopic, Diagnostic (ICD-10-PCS; principal; 2022-05-02 12:00)
PROC: 0BBC8ZX Excision of Right Upper Lung Lobe, Via Natural or Artificial Opening Endoscopic, Diagnostic (ICD-10-PCS; principal; 2022-05-02 12:00)
PROC: 0BD68ZX Extraction of Right Lower Lobe Bronchus, Via Natural or Artificial Opening Endoscopic, Diagnostic (ICD-10-PCS; principal; 2022-05-02 12:00)
PROC: 0BDC8ZX Extraction of Right Upper Lung Lobe, Via Natural or Artificial Opening Endoscopic, Diagnostic (ICD-10-PCS; principal; 2022-05-02 12:00)
PROC: 0BH17EZ Insertion of Endotracheal Airway into Trachea, Via Natural or Artificial Opening (ICD-10-PCS; 2022-05-02 12:00)
PROC: 5A1935Z Respiratory Ventilation, Less than 24 Consecutive Hours (ICD-10-PCS; 2022-05-02 12:00)
PROC: 4A133J1 Monitoring of Arterial Pulse, Peripheral, Percutaneous Approach (ICD-10-PCS; 2022-05-02 12:00)
PROC: 4A133B1 Monitoring of Arterial Pressure, Peripheral, Percutaneous Approach (ICD-10-PCS; 2022-05-02 12:00)
PROC: 03HY32Z Insertion of Monitoring Device into Upper Artery, Percutaneous Approach (ICD-10-PCS; 2022-05-02 12:00)
PROC: 5A09357 Assistance with Respiratory Ventilation, Less than 24 Consecutive Hours, Continuous Positive Airway Pressure (ICD-10-PCS; 2022-05-03)
DX: J44.1 Chronic obstructive pulmonary disease with (acute) exacerbation (principal); J96.21 Acute and chronic respiratory failure with hypoxia; J96.22 Acute and chronic respiratory failure with hypercapnia; I47.2 Ventricular tachycardia; M79.7 Fibromyalgia; D86.9 Sarcoidosis, unspecified; E03.9 Hypothyroidism, unspecified; E86.1 Hypovolemia; F17.210 Nicotine dependence, cigarettes, uncomplicated; K21.9 Gastro-esophageal reflux disease without esophagitis; I95.9 Hypotension, unspecified; H40.9 Unspecified glaucoma; Z86.11 Personal history of tuberculosis; Z87.01 Personal history of pneumonia (recurrent); Z90.2 Acquired absence of lung [part of]; Z82.5 Family history of asthma and other chronic lower respiratory diseases; Z79.899 Other long term (current) drug therapy; Z79.890 Hormone replacement therapy; Z79.51 Long term (current) use of inhaled steroids; Z88.6 Allergy status to analgesic agent; Z88.2 Allergy status to sulfonamides
CPT/HCPCS: 31623; 31624; 31625; 36600; 71045; 80048; 80053; 82805; 83735; 84132; 85025; 85610; 87070; 87102; 87116; 87205; 87206; 87252; 87496; 87498; 87502; 87529; 87634; 87798; 88104; 88108; 88305; 89050; 94002; 94003; 94640; 94660